=== PATIENT | male | born 1960 | race Caucasian/White ===

== ENCOUNTER 2019-07-07 19:10 | Emergency (ER) | payer OTHER, SELFPAY ==
[2019-07-07 19:11] VITALS: BP 152/96; PULSE 68; RESP 18; TEMP 36.4; O2SAT 97; BMI 29.8
--- NOTE | 2019-07-07 19:15 | RAD_ITS ---
STUDY: X-RAY - RIGHT SHOULDER REASON FOR EXAM: Male, 58 years old. Fall. Pain. TECHNIQUE: 3 view(s) of the shoulder. COMPARISON: None. FINDINGS: There are degenerative changes of the glenohumeral articulation. There are degenerative changes of the acromioclavicular joint. Normal acromion. Normal humeral head and visualized proximal humerus. The soft tissue structures are unremarkable. Normal visualized pulmonary apex. RAD/Shoulder min 2 Views IMPRESSION: Degenerative changes. Electronically Signed: Saige Plummer MD at 19:42 EST Tel , Service support ,
--- NOTE | 2019-07-07 21:19 | RAD_ITS ---
STUDY: X-RAY - RIGHT HUMERUS REASON FOR EXAM: Male, 58 years old. Fall. Pain TECHNIQUE: 3 view(s) of the humerus. COMPARISON: None. FINDINGS: Normal visualized humerus. There is no demonstrated fracture or osseous destructive process. There is no demonstrated soft tissue abnormality. RAD/Humerus min 2 Views IMPRESSION: Normal limits x-ray examination of the humerus. Electronically Signed: Saige Plummer MD at 21:59 EST Tel , Service support ,
[2019-07-07] MEDS: HYDROcodone Bitartrate/Apap 5/325 Tablet PO (21:36)
--- NOTE | 2019-07-07 21:45 | RAD_ITS ---
STUDY: X-RAY - RIGHT ELBOW REASON FOR EXAM: Male, 58 years old. Fall. Pain TECHNIQUE: 3 view(s) of the elbow. COMPARISON: None. FINDINGS: Normal visualized humerus, radius and ulna. Normal radiocapitellar and ulnotrochlear articulations. The soft tissue structures are unremarkable. RAD/Elbow min 3 Views IMPRESSION: Normal x-ray examination of the elbow. Electronically Signed: Saige Plummer MD at 21:59 EST Tel , Service support ,
--- NOTE | 2019-07-07 22:33 | DCINST.ED_ITS ---
ED Disposition - Plan for ED Patient: Instructions: Shoulder Sprain Prescriptions: Hydrocodone Bitart/Apap 5-325 [[place] 5MG-325MG] 1 tablet PO Q6H PRN PRN 3 Days #10 tablet PRN Reason: Pain Referrals: Rupert Nunn III, MD [Primary Care Provider] -
--- NOTE | 2019-07-07 22:40 | ED.DCSUM_ITS ---
- ER Visit Summary Date of Service: 07/07/19 Chief Complaint: Right shoulder injury History of Present Illness: The patient is a 58 M presenting with right shoulder injury. Patient states he slipped on the ice and fell. He landed injuring his right shoulder. He did not hit his head or lose consciousness. He is not on anticoagulants. He complains of right shoulder pain. Denies other injuries. Physical Examination: Vitals are stable. Patient is afebrile. Alert no acute distress. HEENT exam is unremarkable. Neck is nontender Lungs are clear and equal bilaterally. Heart is regular rate and rhythm. Abdomen is soft nontender nondistended. Extremities diffuse right shoulder tenderness with active full range of motion. Neurovascularly intact distally Skin is warm and dry. No focal neurologic deficit. Remainder of exam is unremarkable. Emergency Department Course and Treatment: X-ray right shoulder, humerus, elbow show no acute process. Patient was given a sling and advised range of motion exercises. He is given [place]. Advised to follow-up with his primary care physician. Advised return to ED for worsening complaints. Disposition: Discharge home Impression: Right shoulder sprain This note was generated with [employer] dictation software. It may contain incorrect words, spelling, and punctuation that were not noted in review of the chart prior to signing ED Disposition - Plan for ED Patient: Instructions: Shoulder Sprain Prescriptions: Hydrocodone Bitart/Apap 5-325 [[place] 5MG-325MG] 1 tab PO Q6H PRN PRN 3 Days #10 tab PRN Reason: Pain Prescription Printed Referrals: Rupert Nunn III, MD [Primary Care Provider] -
[2019-07-07 23:00] VITALS: BP 135/70; PULSE 60; RESP 18; O2SAT 94
== END 2019-07-07 23:01 | disposition home or self-care (01) ==
PROVIDERS: Emergency Provider Emergency Medicine; Family Provider Family Medicine; PCP Family Medicine
DX: S43.401A Unspecified sprain of right shoulder joint, initial encounter (principal); W00.0XXA Fall on same level due to ice and snow, initial encounter; Y93.01 Activity, walking, marching and hiking; Y92.89 Other specified places as the place of occurrence of the external cause; Y99.8 Other external cause status
CPT/HCPCS: 73030; 73060; 73080; 99283

== ENCOUNTER 2021-03-15 15:24 | Emergency (ER) | payer OTHER, SELFPAY ==
[2021-03-15 15:25] VITALS: BP 153/89; PULSE 83; RESP 16; TEMP 36.6; O2SAT 96; BMI 29.0
--- NOTE | 2021-03-15 16:14 | CT_ITS ---
STUDY: CT BRAIN WITHOUT CONTRAST REASON FOR EXAM: Male, 60 years old. Headache RADIATION DOSAGE (If Supplied By Facility): CTDIvol = ( 44.99 ) mGy, DLP = ( 846.73 ) mGycm TECHNIQUE: Transaxial CT imaging of the brain was performed without administration of intravenous contrast material. Individualized dose optimization techniques were used for this CT. COMPARISON: No relevant priors. FINDINGS: Brain parenchyma is without focal lesions, mass effect, acute intracranial hemorrhage, extra parenchymal fluid collections, hydrocephalus or herniation. The skull is intact. CT/Brain/Head without Contrast IMPRESSION: 1. Normal CT brain. Electronically Signed: Ale Yañez MD at 17:33 EDT Tel , Service support ,
--- NOTE | 2021-03-15 16:17 | EDS_ITS ---
HPI History of Present Illness Chief Complaint: Dizziness Informant: patient Onset/Context/Timing Onset: Yesterday Context: Sudden Onset Timing: Intermittent and Lasts (30 to 45 minutes) Quality: Blurry, cloudy Location: Both eyes Worsened by: Nothing Relieved by: Possibly eating Narrative Narrative: Patient presents with blurring of her vision that began yesterday. Patient states it has been intermittent. Patient states that last approximately 30 to 45 minutes. Patient states nothing makes it worse and nothing makes it better. However at one point he thought that eating may have helped with a vision. Patient admits to a mild headache. Patient states it is behind both eyes. Patient denies any nausea or vomiting. Patient denies any fevers or chills. PFSH PFS Home Medications NK 03/15/21 [History Last Taken Unknown] Allergy/AdvReac Type Severity Reaction Status Date / Time No Known Allergies Allergy Verified 03/15/21 15:27 Family History (Updated 03/15/21 @ 15:47 by Sandrine Rodriguez) Mother Hypertension Father Hypertension Diabetes Aunt Diabetes Surgical History S/P rotator cuff repair Social History Smoking Status: Never smoker ROS ROS ED Constitutional Constitutional ED: Denies chills or fever(s) Eyes Eyes: Reports blurry vision bilateral; Denies diplopia ENT ENT ED: Denies rhinorrhea or sore throat Cardiovascular Cardiovascular: Denies chest pain or palpitations Respiratory/Chest Respiratory/Chest: Denies cough or dyspnea Gastrointestinal Gastrointestinal: Denies nausea or vomiting Genitourinary Genitourinary ED: Denies dysuria or hematuria Musculoskeletal Musculoskeletal: Denies back pain or neck pain Integumentary Denies abscess or rash Neurologic Neurologic: Reports headache(s); Denies weakness Allergic/Immunologic Allergic/Immunologic ED: Denies mouth swelling or urticaria EXAM Physical Exam Const Vital Signs: 03/15/21 15:25 03/15/21 15:47 Temperature 97.8 F Temperature Source Temporal Pulse Rate 83 Respiratory Rate 16 Respiratory Effort Normal Respiratory Pattern Normal Blood Pressure 153/89 H Blood Pressure Mean 110 Pulse Ox 96 Oxygen Delivery Method Room Air Positive well nourished and well developed General Appearance ED: well developed HEENT Reports moist mucous membranes Eyes PERRL and EOMs intact bilaterally Neck supple and no JVD Resp normal respiratory effort and clear to auscultation bilaterally Cardio regular rate and regular rhythm GI normal to inspection, nondistended, normoactive bowel sounds and non-tender Palpation: soft Neuro oriented x3, CN's II-XII intact bilaterally and no sensory deficits noted Sensorium / Orientation: alert Motor Exam: strength 5/5 throughout Psych mental status grossly normal MDM MDM MDM Narrative Medical decision making narrative: Intraocular pressures were normal. It was 14 on the right and [address] scan of the brain was obtained. There is no acute intracranial abnormality. This was interpreted by the radiologist and reviewed by myself. CBC and comprehensive metabolic profile were obtained and were within normal limits. Patient's visual acuity was 20/15. Patient is feeling better on reevaluation. Patient was advised that this could have been hypoglycemic episode. Patient was instructed to follow-up with his primary care physician in 3 to 5 days. Patient understood and was agreeable with the plan. All questions were answered. Lab Data Attestation: I reviewed the patient's lab results. Labs: Laboratory Results - last 24 hr 03/15/21 03/15/21 16:40 16:40 WBC 8.7 RBC 4.30 L Hgb 13.7 Hct 41.4 MCV 96.3 H MCH 31.9 MCHC 33.1 RDW Std Deviation 47.1 H RDW Coeff of Vidhya 13.2 Plt Count 318 MPV 9.1 Immature Gran % (Auto) 0.500 Neut % (Auto) 54.5 Lymph % (Auto) 35.2 Saunders % (Auto) 7.5 Eos % (Auto) 1.6 Baso % (Auto) 0.7 Absolute Neuts (auto) 4.7 Absolute Lymphs (auto) 3.06 Nucleated RBC % 0 Sodium 138 Potassium 4.0 Chloride 106 Carbon Dioxide 28.0 Anion Gap 4 L BUN 26 H Creatinine 0.97 Estim Creat Clear Calc 71.25 Est GFR (MDRD) Af Amer 101 Est GFR (MDRD) Non-Af 84 BUN/Creatinine Ratio 26.9 H Glucose 91 Calcium 8.8 Total Bilirubin 0.20 AST 15 ALT 30 Alkaline Phosphatase 69 Total Protein 7.3 Albumin 3.7 Globulin 3.6 Albumin/Globulin Ratio 1.0 Radiography Diagnostic Testing: Radiology Impression Brain CT 03/15/21 16:14 IMPRESSION: 1. Normal CT brain. Electronically Signed: Ale Yañez MD at 17:33 EDT Tel , Service support , Discharge Plan Triage Chief Complaint: Dizziness ED Provider: Blaine Lin Dx/Rx/DC Orders Clinical Impression: Visual changes Instructions: ED Blurred Vision Prescriptions: No Action NK RF: 0 Primary Care Provider: Oscar Ray NP Referrals: Oscar Ray NP, [employer] [Primary Care Provider] - 3-5 Days Disposition Disposition: Home, Self Care
[2021-03-15] MEDS: Tetracaine 0.5% Ophthalmic Bottle OPHTHALMIC (16:42)
[2021-03-15 17:16] LABS: Absolute Lymphocyte Count 3.06 X10^3/uL (0.83-4.51); Absolute Neutrophil Count 4.7 X10^3/uL (2.0-7.7); Basophil# 0.06 X10^3/uL; Basophil% 0.7 % (0-1); Eosinophil# 0.14 X10^3/uL; Eosinophils% 1.6 % (0-5); Hematocrit 41.4 % (40-54); Hemoglobin 13.7 g/dL (13.0-16.5); Lymphocyte # 3.06 X10^3/ul (0.83-4.51); Lymphocyte % 35.2 % (19-41); Mean Corp Hgb Conc 33.1 g/dL (32-36); Mean Corpuscular Hgb 31.9 pg (27.0-32.0); Mean Corpuscular Volume 96.3 fL (80-94); Mean Platelet Vol. 9.1 fl (6.2-12.0); Monocyte# 0.65 X10^3/uL; Monocyte% 7.5 % (0-10); NRBC Flagged by Analyzer 0 % (0-5); Neutrophil # 4.74 X10^3/uL (2.7-7.7); Neutrophil % 54.5 % (47-70); Platelet Count 318 K/mm3 (150-450); RBC Distribution Width CV 13.2 % (11.6-14.6); RBC Distribution Width SD 47.1 fl (35.1-43.9); White Blood Count 8.7 K/mm3 (4.4-11.0)
[2021-03-15 17:27] LABS: AST(SGOT) 15 U/L (15-37); Alanine Aminotransfer ALT/SGPT 30 U/L (16-61); Albumin, Serum 3.7 g/dL (3.2-5.0); Alkaline Phosphatase 69 U/L (45-117); Anion Gap 4 (5-15); BUN 26 mg/dL (7-18); BUN/Creat Ratio 26.9 RATIO (10-20); Calcium,Total 8.8 mg/dL (8.5-10.1); Chloride 106 mmol/L (98-107); Creatinine, Serum 0.97 mg/dL (0.70-1.30); EST Glomerular Filtration Rate 84 mL/min (>60); Est Glom Filt Rate - Afr Amer 101 mL/min (>60); Estimated Creatinine Clearance 71.25 ml/min; Globulin 3.6 g/dL (2.2-4.2); Glucose 91 mg/dL (74-106); Protein, Total 7.3 g/dL (6.4-8.2); Sodium Level 138 mmol/L (136-145)
[2021-03-15 19:12] VITALS: BP 147/97
== END 2021-03-15 19:14 | disposition home or self-care (01) ==
PROVIDERS: Emergency Provider Emergency Medicine; PCP Nurse Practitioner Family
DX: H53.8 Other visual disturbances (principal); R42 Dizziness and giddiness; R51.9 Headache, unspecified
CPT/HCPCS: 70450; 80053; 85025; 99284; A4216

== ENCOUNTER → 2023-10-28 | Outpatient (CLI) | payer OTHER, SELFPAY | END | disposition home or self-care (01) | LOC: SL 19:45 | PROVIDERS: PCP Nurse Practitioner Family; Referring Provider Family Medicine; Visit Provider Family Medicine | DX: G47.33 Obstructive sleep apnea (adult) (pediatric) (principal) | CPT/HCPCS: 95810 ==

== ENCOUNTER 2025-04-09 18:30 | Emergency (ER) | payer MEDICARE, SELFPAY ==
[2025-04-09 18:31] VITALS: BP 155/96; PULSE 77; RESP 16; TEMP 37.1; O2SAT 99
--- NOTE | 2025-04-09 18:44 | EDS_ITS ---
HPI History of Present Illness Chief Complaint: Lower Extremity Injury [facility] Medical History Hypertension Home Medications ?Medication ?Instructions ?Recorded ?Last Taken ?Type NK 03/15/21 Unknown History Allergy/AdvReac Type Severity Reaction Status Date / Time No Known Allergies Allergy Verified 01/11/22 08:39 Family History Mother Hypertension Father Hypertension Diabetes Aunt Diabetes Surgical History S/P rotator cuff repair Social History Smoking Status: Never smoker EXAM Physical Exam Const Vital Signs: 04/09/25 18:31 04/09/25 20:16 Temperature 98.8 F 98.8 F Temperature Source Oral Pulse Rate 77 71 Respiratory Rate 16 15 Blood Pressure 155/96 H 155/96 H Blood Pressure Mean 115 115 Pulse Ox 99 99 Oxygen Delivery Method Room Air [facility] MDM Narrative Medical decision making narrative: HISTORY OF PRESENT ILLNESS: Chief complaint: Right leg pain 64-year-old male presents with concern for right leg pain. 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 He notes a fall with right mid thigh and calf pain. He further states there is no head trauma or loss of consciousness. No hip or back pain noted. No upper extremity pain noted felt a pop and severe pain in his posterior right leg. REVIEW OF SYSTEMS: Pertinent positives: Leg pain Pertinent negatives: Numbness, tingling, loss of sensation PHYSICAL EXAM: Nursing triage notes reviewed, Vital signs reviewed Constitutional: please see mdm HENT: MMM Eyes: Pupils equal round and reactive to light, Extraocular muscles intact Neck: No stridor, no JVD, full neck ROM Lungs: Clear to auscultation, No wheezing or rales. No increased work of breathing, no conversational dyspnea, no accessory muscle use, no nasal flaring. No respiratory distress noted Heart: Regular rate and rhythm, No murmurs, No rubs and No gallops, 2+ distal pulses (radial, femoral, posterior tibial) in all extremities Abdomen: Soft, there is no tenderness, rigidity, rebound or guarding, no obvious peritoneal signs, no palpable pulsatile abdominal masses, no auscultated abdominal bruit : No CVAT Extremities: No edema, TTP over hamstring muscle belly. Intact ligamentous structures noted with anterior posterior drawer and valgus and varus stress testing. Intact quadrants tendon complex. Compartments are soft. Right lower extremity is neurovascularly intact. Neuro: intact sensation L1-S1 dermatomal distributions. Intact 5/5 strength in hip flexion (T12-L3). Knee extension (L2-L4). Ankle dorsiflexion (L4-L5). Ankle plantar flexion (S1). Great toe extension (L5). 2+ patellar and Achilles DTRs. Skin: No rash or lesions noted MEDICAL DECISION MAKING: Chief Complaint: please see HPI External records reviewed: Reviewed prior imaging studies. No advanced imaging of the involved extremity noted MDM Narrative: Patient was initially hemodynamically stable, afebrile and nontoxic-appearing. Exam with TTP over right hamstring muscle. I considered the following differential diagnosis: Hamstring muscle strain, femur fracture I obtained an x-ray to further determine if the patient was suffering from a life-threatening etiology. Offered pain medicine however patient refused ALL IMAGES (IF OBTAINED) HAVE BEEN PERSONALLY REVIEWED AND INTERPRETED BY MYSELF. X-ray of the right femur was read reviewed personally myself showed no evidence of obvious bony abnormality The synthesis of the patient's history, physical exam, imaging studies suggest hamstring strain. The patient and/or family, caregivers express understanding. The patient and/or family, caregivers agrees with the plan. Shared decision making: I will have a discussion with the patient and or visitors regarding risk/benefits of further testing or admission. They will be made aware of of the risk/benefits inherent in this decision they will be given the opportunity to voice understanding. Total critical care time today provided was at least 0 minutes. This excludes separately billable procedures. Critical care time (if documented) is secondary to the patient having high probability of clinically significant/life threatening deterioration in the patient's condition which required my urgent intervention. Impression: 1. Acute leg pain 2. Hamstring muscle strain Dispo: Discharge home This note was generated with [employer] dictation software. It may contain incorrect words, spelling, and punctuation that were not noted in review of the chart prior to signing. Radiography Diagnostic Testing: Clinical Impression(s) from Imaging Studies Femur X-Ray 04/09/25 19:10 IMPRESSION: No acute osseous abnormality. Reading Location: [facility] [place] Discharge Plan Triage Chief Complaint: Lower Extremity Injury ED Provider: [place] Dx/Rx/DC Orders Instructions: ED Muscle Strain, Extremity Prescriptions: No Action NK Primary Care Provider: Oscar Ray NP Referrals: Oscar Ray NP, [employer] [Primary Care Provider] - Activity Restrictions/Additional Instructions: Thank you for trusting us with your care today! The x-ray of your leg/femur did not show signs of a bony injury, fracture, broken bone or dislocation. You are likely suffering a hamstring muscle strain. This improves with time, rest, gentle stretching and the below medications. If your symptoms continue for the next 2 to 4 weeks and worsen you will need outpatient MRI for further evaluation. Please take Tylenol (2 pills, 650 mg), ibuprofen (2 pills, 400 mg) every 6 hours as needed for pain and fever control. Please return to the emergency department if your symptoms change or worsen. Please follow with your primary care physician for further outpatient evaluation and management. Print Language: Turkish Disposition Disposition: Home, Self Care Discharge Date/Time: 04/09/25 20:17
--- OUTSIDE RECORDS SUMMARY | 2025-04-09 18:53 | XMS RPT_ITS | CCD ---
Author Organization [facility] Care Team Providers Care Buffing Machine Tender Name Role Phone Golden Michel MD Primary Care Provider Ralph Norman Referring Unavailable Ralph Norman Attending Unavailable Cory STORAGE ADMINISTRATOR, Oscar Primary Care Unavailable Golden Michel MD Primary Care Provider [place] STRATEGY ANALYST.Pinky JIMENES Unavailable John Paul STRATEGY ANALYST.Idris JIMENES Unavailable [place] STRATEGY ANALYST.Pinky JIMENES Unavailable Unavail able HERIBERTO PEREZ Attending Unavailable GOLDEN MICHEL Primary Care Unavailable HERIBERTO PEREZ Attending Unavailable GOLDEN MICHEL Primary Care Unavailable [place] STRATEGY ANALYST.Pinky JIMENES Unavailable [place] STRATEGY ANALYST.Pinky JIMENES Unavailable HERIBERTO PEREZ Referring Unavailable GOLDEN MICHEL Primary Care Unavailable SONIDO MAURICIO Attending Unavailable MARCUS HARO Referring Unavailable GOLDEN MICHEL Primary Care Unavailable SHIRLEY TAVERAS Referring Unavailable GOLDEN MICHEL Primary Care Unavailable GOLDEN MICHEL Primary Care Unavailable SHIRLEY TAVERAS Attending Unavailable PINKY WILSON Referring UnavailGOLDEN Diego Primary Care Unavailable MARCUS HARO Referring Unavailable GOLDEN MICHEL Primary Care Unavailable WALI COLEMAN Referring Unavailable GOLDEN MICHEL Primary Care Unavailable GOLDEN MICHEL Primary Care Unavailable PINKY WILSON Referring UnavailWALI Florentino Attending Unavailable GOLDEN MICHEL Primary Care Unavailable PINKY WILSON Referring Unavailabl e GOLDEN MICHEL Primary Care Unavailable PINKY WILSON Attending UnavailGOLDEN Diego Primary Care Unavailable PINKY WILSON Referring UnavailGOLDEN Diego Primary Care Unavailable IDRIS DAILEY Referring Unavailable XIMENA CHRISTIAN Attending Unavailable GOLDEN MICHEL Primary Care Unavailable Medications Current Medications Medication Drug Class(es) Dates Sig (Normalized) Sig (Original) cyclobenzaprine hydrochloride 10 mg oral tablet (1 source) Muscle Relaxant Start: 03-26-2025 End: 04-02-2025 take 1 tablet by mouth every eight hours as needed cyclobenzaprine (FLEXERIL) 10 mg tablet Take 1 tablet by mouth three times a day as needed for up to 7 days. 14 tablet 03/26/2025 04/02/2025 Active ketoconazole 20 mg/ml topical cream (3 sources) Azole Antifungal Start: 04-25-2024 End: 05-09-2024 ketoconazole (NIZORAL) 2 % cream Indications: Fungal skin infection Apply to affected area two times a day for 14 days. 60 g 2 04/25/2024 05/09/2024 Active Hamlin (Nk) (1 source) Start: 03-15-2021 Hamlin (Nk) Active March 15, 2021 12:00am nystatin 100 unt/mg topical powder (2 sources) Polyene Antifungal Start: 04-28-2024 End: 05-12-2024 nystatin (MYCOSTATIN) powder Indications: Fungal skin infection Apply 1 application to affected area three times a day for 14 days. 60 g 1 04/28/2024 05/12/2024 Active nystatin 1 billion unit powd (3 sources) Start: 04-25-2024 End: 04-25-2025 nystatin 1 billion unit powd Indications: Fungal skin infection 1 APPLICATION TWO TIMES A DAY. 1 Each 2 04/25/2024 04/25/2025 Active Start: 04-25-2024 End: 04-25-2024 nystatin 1 billion unit powd Indications: Fungal skin infection 1 Application two times a day. 1 Each 2 04/25/2024 04/25/2024 Discontinued Start: 04-25-2024 End: 04-25-2025 nystatin 1 billion unit powd Indications: Fungal skin infection 1 Application two times a day. 1 Each 2 04/25/2024 04/25/2025 Active sildenafil 50 mg oral tablet (20 sources) Phosphodiesterase 5 Inhibitor Start: 03-20-2025 sildenafil (VIAGRA) 50 mg tablet Indications: ED (erectile dysfunction) of organic origin Take one tablet by mouth 60 minutes prior to sexual activity. Not to exceed one tablet per 24 hours. For erectile dysfunction 12 tablet 3 03/20/2025 Active Start: 01-09-2025 End: 03-18-2025 sildenafil (VIAGRA) 50 mg ta blet Indications: ED (erectile dysfunction) of organic origin Take one tablet by mouth 60 minutes prior to sexual activity. Not to exceed one tablet per 24 hours. For erectile dysfunction 12 tablet 3 01/09/2025 03/18/2025 Discontinued Start: 03-22-2024 End: 01-07-2025 sildenafil (VIAGRA) 50 mg ta blet Indications: ED (erectile dysfunction) of organic origin Take one tablet by mouth 60 minutes prior to sexual activity. Not to exceed one tablet per 24 hours. For erectile dysfunction 12 tablet 3 07/21/2024 01/07/2025 Discontinued Start: 02-19-2021 End: 03-19-2024 sildenafil (VIAGRA) 50 mg ta blet Indications: ED (erectile dysfunction) of organic origin Take one tablet by mouth 60 minutes prior to sexual activity. Not to exceed one tablet per 24 hours. For erectile dysfunction 12 tablet 05/20/2023 03/19/2024 Discontinued Comment on above: Take one tablet by m outh 60 minutes prior to sexual activity. Not to exceed one tablet per 24 hours. For erectile dysfunction sodium phosphate, dibasic 59.3 mg/ml / sodium phosphate, monobasic 161 mg/ml enema (1 source) Start: End: 4 take 133 mL rectal route once sodium phosphate-sodium bisphosphate (FLEET ENEMA) enema Indications: Elevated prostate specific antigen (PSA) , BPH with obstruction/lower urinary tract symptoms 133 mL by RECTAL route one time only for 1 dose. 133 mL 05/24/2024 05/24/2024 Active triazolam 0.25 mg oral tablet (3 sources) Benzodiazepine Start: End: 4 take 1 tablet by mouth at bedtime as needed triazolam (HALCION) 0.25 mg tablet Indications: Elevated prostate specific antigen (PSA) , BPH with obstruction/lower urinary tract symptoms Take 1 tablet by mouth at bedtime as needed for up to 1 dose. Patient should start on May 25, 2024. 1 tablet 05/25/2024 05/26/2024 Active Completed/Discontinued Medications Medication Drug Class(es) Dates Sig (Normalized) Sig (Original) acetaminophen 325 mg / HYDROcodone bitartrate 5 mg oral tablet (1 source) Opioid Agonist Start: 07-07-2019 End: 07-13-2019 take 1 tablet by mouth every six hours as needed Hydrocodone-Acetami nophen Discontinued 1 TABLET PO EVERY 6 HOURS NEEDED 04 28July 07, 2019 July 13, 2019 1:12am Problems Active Problems Problem Classification Problem Date Documented Date Episodic/Chronic Acquired foot deformities (4 sources) Hammer toe; Translations: [Other hammer toe(s) (acquired), right foot] Onset: 06-06-2024 06-06-2024 Chronic Blindness and vision defects (1 source) Eye / vision finding; Translations: [Unspecified visual disturbance] 03-15-2021 Episodic Disorders of lipid metabolism (20 sources) Mixed hyperlipidemia; Translations: [Mixed hyperlipidemia] Onset: 04-23-2010 Chronic Hyperplasia of prostate (4 sources) Benign prostatic hypertrophy with outflow obstruction; Translations: [Benign prostatic hyperplasia with lower urinary tract symptoms] Onset: 05-25-2024 05-20-2024 Chronic Other circulatory disease (2 sources) Elevated blood-pressure reading without diagnosis of hypertension; Translations: [Elevated blood-pressure reading, without diagnosis of hypertension] Episodic Other connective tissue disease (2 sources) Pain in right foot; Translations: [Pain in right foot] Episodic Other connective tissue disease (1 source) Shoulder girdle weakness; Translations: [Other symptoms and signs involving the musculoskeletal system] 04-25-2024 Episodic Other male genital disorders (6 sources) Secondary erectile dysfunction; Translations: [Male erectile dysfunction, unspecified] 05-20-2023 Chronic Other male genital disorders (1 source) Male erectile dysfunction, unspecified; Translations: [ED (erectile dysfunction) of organic origin] Onset: 04-25-2024 Chronic Other non-traumatic joint disorders (3 sources) Hip pain; Translations: [Pain in right hip] 06-03-2024 Episodic Other nutritional; endocrine; and metabolic disorders (20 sources) Metabolic syndrome X; Translations: [Metabolic syndrome] Onset: 10-01-2006 10-01-2006 Chronic Other skin disorders (2 sources) Foot callus; Translations: [Corns and callosities] 06-06-2024 Episodic Residual codes; unclassified (1 source) Obstructive sleep apnea (adult) (pediatric); Translations: [Obstructive sleep apnea (adult) (pediatric)] Onset: 02-29-2024 Chronic Spondylosis; intervertebral disc disorders; other back problems (2 sources) Spasm of back muscles; Translations: [Muscle spasm of back] Onset: 03-26-2025 03-26-2025 Episodic Sprains and strains (2 sources) Strain of neck muscle; Translations: [Strain of muscle, fascia and tendon at neck level, initial encounter] Onset: 03-26-2025 03-26-2025 Episodic Past or Other Problems Problem Classification Problem Date Documented Date Episodic/Chronic Fracture of upper limb (20 sources) Closed fracture of lower end of forearm; Translations: [Unspecified fracture of unspecified forearm, initial encounter for closed fracture] Onset: 10-10-2005 Resolved: 11-28-2005 10-16-2005 Episodic Immunizations and screening for infectious disease (5 sources) Needs influenza immunization; Translations: [Encounter for immunization] Onset: 04-25-2024 Episodic Mycoses (20 sources) Tinea pedis; Translations: [Tinea pedis] Onset: 06-28-2012 Resolved: 05-19-2016 05-19-2016 Episodic Other circulatory disease (1 source) Elevated blood-pressure reading, without diagnosis of hypertension; Translations: [Elevated blood pressure reading without diagnosis of hypertension] Onset: 04-25-2024 Episodic Other connective tissue disease (1 source) Other symptoms and signs involving the musculoskeletal system; Translations: [Weakness of right shoulder] Onset: 04-25-2024 Episodic Other diseases of kidney and ureters (1 source) Other obstructive and reflux uropathy; Translations: [BPH with obstruction/lower urinary tract symptoms] Onset: 05-25-2024 Episodic Other non-traumatic joint disorders (1 source) Pain in right hip; Translations: [Pain of right hip] Onset: 06-10-2024 Episodic Other screening for suspected conditions (not mental disorders or infectious disease) (18 sources) Patient encounter status; Translations: [Encounter for screening for malignant neoplasm of colon] Onset: 05-25-2024 Episodic Other skin disorders (1 source) Corns and callosities; Translations: [Callus of foot] Onset: 06-06-2024 Episodic Screening and history of mental health and substance abuse codes (2 sources) Encounter for screening for depression; Translations: [Encounter for screening examination for other mental health and behavioral disorders] Onset: 04-25-2024 Episodic Skull and face fractures (20 sources) Closed fracture of facial bone; Translations: [Fracture of other specified skull and facial bones, unspecified side, initial encounter for closed fracture] Onset: 10-10-2005 Resolved: 02-15-2014 02-15-2014 Episodic Results Test Name Value Interpretation Reference Range Facility Comprehensive metabolic 2000 panelon 04-05-2025 Albumin [Mass/Vol] 4.1 g/dL Normal 3.9-4.9 [facility] Comment on above: Order Comment: Speci men Type: BLOOD SPECIMENOrdering Facility: [facility] Address: [address] [place] [address] Performed By: #### 2 4331-1, 32464-0, 86850-4 ####[facility] [id number] [place] [address] [place] ALP [Catalytic activity/Vol] 65 U/L Normal 38-113 [facility] Comment on above: Order Comment: Speci men Type: BLOOD SPECIMENOrdering Facility: [facility] Address: [address] [place] [address] Performed By: #### 2 4331-1, 86115-0, 85465-1 ####[facility] [id number] [place] [address] [place] ALT [Catalytic activity/Vol] 15 U/L Normal 10-54 [facility] Comment on above: Order Comment: Speci men Type: BLOOD SPECIMENOrdering Facility: [facility] Address: [address] [place] [address] Performed By: #### 2 4331-1, 46938-0, 26555-3 ####[facility] LABCLIA [id number] [address] [address] [place] Anion gap [Moles/Vol] 13 mmol/L Normal 8-15 [facility] Comment on above: Order Comment: Speci men Type: BLOOD SPECIMENOrdering Facility: [facility] Address: [address] [place] [address] Performed By: #### 2 4331-1, 74410-3, ####[facility] LABCLIA [id number] [address] [address] [place] AST [Catalytic activity/Vol] 17 U/L Normal 14-40 [facility] Comment on above: Order Comment: Speci men Type: BLOOD SPECIMENOrdering Facility: [facility] Address: [address] [place] [address] Performed By: #### 2 4331-1, 02795-9, ####[facility] LABCLIA [id number] [address] [address] [place] Bilirubin [Mass/Vol] 0.3 mg/dL Normal 0.2-1.3 [facility] Comment on above: Order Comment: Speci men Type: BLOOD SPECIMENOrdering Facility: [facility] Address: [address] [place] [address] Performed By: #### 2 4331-1, 95729-1, ####[facility] LABCLIA [id number] [address] [address] [place] Calcium [Mass/Vol] 9.5 mg/dL Normal 8.5-10.2 [facility] Comment on above: Order Comment: Speci men Type: BLOOD SPECIMENOrdering Facility: [facility] Address: [address] [place], [place] [address] Performed By: #### 2 4331-1, 73309-3, 87005-6 ####[facility] LABCLIA [id number] [place] [id number] [place] Chloride [Moles/Vol] 102 mmol/L Normal 98-107 [facility] Comment on above: Order Comment: Speci men Type: BLOOD SPECIMENOrdering Facility: [facility] Address: [address] [place] [address] Performed By: #### 2 4331-1, 97030-4, 89820-6 ####[facility] LABIA [id number] [place] [id number] [place] CO2 [Moles/Vol] 21 mmol/L Low 22-30 [facility] Comment on above: Order Comment: Speci men Type: BLOOD SPECIMENOrdering Facility: [facility] Address: [address] [place] [address] Performed By: #### 2 4331-1, 39025-3, 42030-7 ####[facility] LABIA [id number] [place] [id number] [place] Creatinine [Mass/Vol] 1.02 mg/dL Normal 0.73-1.22 [facility] Comment on above: Order Comment: Speci men Type: BLOOD SPECIMENOrdering Facility: [facility] Address: [address] [place] [address] Performed By: #### 2 4331-1, 89954-2, 46036-9 ####[facility] [id number] [place] [id number] [place] eGFRcr SerPlBld CKD-EPI 2020 81 mL/min/1.73m??? Normal >=60 [facility] Comment on above: Order Comment: Speci men Type: BLOOD SPECIMENOrdering Facility: [facility] Address: [address] [place] [address] Result Comment: Pamela mated Glomerular Filtration Rate (eGFR) is calculated using the 2020 CKD-EPI creatinine equation. This equation utilizes serum creatinine, sex, and age as parameters. The creatinine assay has traceable calibration to isotope dilution-mass spectrometry. Refer to KDIGO guidelines for clinical interpretation. In patients with unstable renal function, e.g. those with acute kidney injury, the eGFR may not accurately reflect actual GFR. Performed By: #### 2 4331-1, 78396-6, ####[facility] LABCLIA [id number] [employer] [address] [id number], [place] [address] [place] Glucose [Mass/Vol] 92 mg/dL Normal 74-99 [facility] Comment on above: Order Comment: Shelly maria Type: BLOOD SPECIMENOrdering Facility: [facility] Address: [address] [place] [address] Result Comment: The [place] Diabetes Association (ADA) provides guidance for cutoff values for fasting glucose and random glucose. The ADA defines fasting as no caloric intake for at least 8 hours. Fasting plasma glucose results between 100 to 125 mg/dL indicate increased risk for diabetes (prediabetes). Fasting plasma glucose results greater than or equal to 126 mg/dL meet the criteria for diagnosis of diabetes. In the absence of unequivocal hyperglycemia, results should be confirmed by repeat testing. In a patient with classic symptoms of hyperglycemia or hyperglycemic crisis, random plasma glucose results greater than or equal to 200 mg/dL meet the criteria for diagnosis of diabetes. Reference: Standards of Medical Care in Diabetes 2016, [place] Diabetes Association. Diabetes Care. 2016.39(Suppl 1). Performed By: #### 2 4331-1, 83730-2, ####[facility] LABCLIA [id number] [employer] [address] [id number] [address] [place] Potassium [Moles/Vol] 4.5 mmol/L Normal 3.7-5.1 [facility] Comment on above: Order Comment: Shelly maria Type: BLOOD SPECIMENOrdering Facility: [facility] Address: [address] [place] [address] Performed By: #### 2 4331-1, 57548-0, ####[facility] LABCLIA [id number] [address] [id number], [place] [address] [place] Protein [Mass/Vol] 7.1 g/dL Normal 6.3-8.0 [facility] Comment on above: Order Comment: Speci men Type: BLOOD SPECIMENOrdering Facility: [facility] Address: [address] [place], [place] [address] Performed By: #### 2 4331-1, 33602-5, 16647-5 ####[facility] LABCLIA [id number] [address] [address] [place] Sodium [Moles/Vol] 136 mmol/L Normal 136-144 [facility] Comment on above: Order Comment: Speci men Type: BLOOD SPECIMENOrdering Facility: [facility] Address: [address] [place], [place] [address] Performed By: #### 2 4331-1, 63097-4, ####[facility] LABCLIA [id number] [address] [address] [place] Urea nitrogen [Mass/Vol] 22 mg/dL Normal 9-24 [facility] Comment on above: Order Comment: Speci men Type: BLOOD SPECIMENOrdering Facility: [facility] Address: [address] [place] [address] Performed By: #### 2 4331-1, 63440-3, ####[facility] LABIA [id number] [address] [address] [place] Free PSA [Mass/Vol]on 2024 Free PSA/Total PSA [Mass fraction] 15 % Normal [facility] Comment on above: Order Comment: Speci men Type: BLOOD SPECIMENOrdering Facility: [facility] Address: [address] [place] [address] Result Comment: Tota l and free PSA test methodology used is the Electrochemiluminescence Immunoassay by [employer]. Total or free PSA values by differing methodologies cannot be interchanged. The below table lists the probability of finding prostate cancer upon needle biopsy, for men 50 years or older and total PSA concentrations from 4.0-10.0 ng/mL. Results should be interpreted within the broader clinical context. Free PSA(%) 50-59 years 60-69 years >69 years <11 49.2% 57.5% 64.5% 11-18 26.9% 33.9% 40.8% 19-25 18.3% 23.9% 29.7% >25 9.1% 12.2% 15.8% Performed By: #### 2 4331-1, 49722-0, 93130-9 ####[facility] LABCLIA [id number] [place] [id number] [place] Prostate specific Ag [Mass/Vol] 5.10 ng/mL High <2.60 [facility] Comment on above: Order Comment: Speci men Type: BLOOD SPECIMENOrdering Facility: [facility] Address: [address] [place] [address] [place] [address] Result Comment: Pedro amor PSA test methodology used is the Electrochemiluminescence Immunoassay by [employer]. Total PSA values by differing methodologies cannot be interchanged. For an individual patient, the significance of a PSA level should be interpreted in a broad clinical context, including age, race, family history, digital rectal exam, prostate size, results of prior testing (prostate biopsy, free PSA, PCA3), and use of 5-alpha reductase inhibitors. Considering the high incidence of asymptomatic cancer in the general population that may not pose an ultimate risk to a patient, the decision to recommend urological evaluation or prostate biopsy should be individualized after consideration of all these factors. REFERENCE: Sri Tsai M.D., M.P.H., Marko Hemphill M.D., Ph.D., Ralph Tobar M.D., Morena Brothers, M.P.H., Salome Franks, Sc.D. Effect of Verification Bias on Screening for Prostate Cancer by Measurement of Prostatic Specific Antigen. N Engl J Med 2003,349:335-42. Performed By: #### 2 4331-1, 71578-9, ####[facility] LABCLIA [id number] [address] [address] [place] Lipid 1996 panelon 5 Cholesterol [Mass/Vol] 192 mg/dL Normal <200 [facility] Comment on above: Order Comment: Speci men Type: BLOOD SPECIMENOrdering Facility: [facility] Address: [address] [place] [address] Result Comment: <200 mg/dL, Desirable 200-239 mg/dL, Borderline high >239 mg/dL, High Performed By: #### 2 4331-1, 67400-9, ####[facility] LABCLIA [id number] [facility] [id number], [place] [address] [place] Cholesterol in HDL [Mass/Vol] 40 mg/dL Normal >39 [facility] Comment on above: Order Comment: Speci men Type: BLOOD SPECIMENOrdering Facility: [facility] Address: [address] [place] [address] Result Comment: 40-5 9 mg/dL, Acceptable >59 mg/dL, High: Negative risk factor for coronary heart disease <40 mg/dL, Low: Positive risk factor for coronary heart disease Performed By: #### 2 4331-1, 16310-9, ####[facility] LABCLIA [id number] [facility] [address] [place] [address] [place] Cholesterol in LDL [Mass/Vol] 138 mg/dL High <100 [facility] Comment on above: Order Comment: Speci crow Type: BLOOD SPECIMENOrdering Facility: [facility] Address: [address] [place] [address] Result Comment: <100 mg/dL, Optimal 100-129 mg/dL, Near optimal/above optimal 130-159 mg/dL, Borderline high 160-189 mg/dL, High >189 mg/dL, Very high Secondary prevention optimal LDL Cholesterol levels are recommended to be <70 mg/dL LDL cholesterol is calculated using the Mooney-NIH equation. Performed By: #### 2 4331-1, 69131-3, 96531-6 ####[facility] LABCLIA [id number] [facility] [id number] [address] [place] Cholesterol in LDL/Cholesterol in HDL [Mass ratio] 3.45 {ratio} High <2.54 [facility] Comment on above: Order Comment: Shelly maria Type: BLOOD SPECIMENOrdering Facility: [facility] Address: [address] [place] [address] Result Comment: Se rosario: 1. National Cholesterol Education Program ATP III Guideline At-A-Glance Quick Desk Reference: National Heart, Lung, and Blood [place]. National Institutes of Health. 2001: NIH Publication No. 01-3305. 2. An International Atherosclerosis Society position paper: global recommendations for the management of dyslipidemia: executive summary, Atherosclerosis. 2014: 232(2):410-413. Performed By: #### 2 4331-1, 13447-5, 19077-5 ####[facility] LABCLIA [id number] [place] [address] [place] Cholesterol in VLDL [Mass/Vol] 14 mg/dL Normal <30 [facility] Comment on above: Order Comment: Shelly maria Type: BLOOD SPECIMENOrdering Facility: [facility] Address: [address] [place] [address] Performed By: #### 2 4331-1, 63804-3, 25702-3 ####[facility] LABIA [id number] [place] [address] [place] Cholesterol non HDL [Mass/Vol] 152 mg/dL High <130 [facility] Comment on above: Order Comment: Shelly maria Type: BLOOD SPECIMENOrdering Facility: [facility] Address: [address] [place] [address] Result Comment: <130 mg/dL, Optimal 130-159 mg/dL, Near optimal/above optimal 160-189 mg/dL, Borderline high 190-219 mg/dL, High >219 mg/dL, Very high Secondary prevention optimal non HDL Cholesterol levels are recommended to be <100 mg/dL Performed By: #### 2 4331-1, 85790-6, 25098-2 ####[facility] LABCLIA [id number] [address] [address] [place] Cholesterol.total/ Cholesterol in HDL [Mass ratio] 4.80 {ratio} Normal <5.10 [facility] Comment on above: Order Comment: Speci men Type: BLOOD SPECIMENOrdering Facility: [facility] Address: [address] [place] [address] Performed By: #### 2 4331-1, 99238-0, 07603-3 ####[facility] LABCLIA [id number] [place] [id number] [facility] FASTING TIME 12 hrs Normal [facility] Comment on above: Order Comment: Speci men Type: BLOOD SPECIMENOrdering Facility: [facility] Address: [address] [place] [address] Performed By: #### 2 4331-1, 92303-7, 40043-6 ####[facility] LABCLIA [id number] [place] [id number] [facility] Triglyceride [Mass/Vol] 77 mg/dL Normal <150 [facility] Comment on above: Order Comment: Speci men Type: BLOOD SPECIMENOrdering Facility: [facility] Address: [address] [place] [address] Result Comment: <150 mg/dL, Normal 150-199 mg/dL, Borderline high 200-499 mg/dL, High >499 mg/dL, Very high Performed By: #### 2 4331-1, 69177-8, 34015-6 ####[facility] LABCLIA [id number] [place] [id number] [facility] [place] CNOVon 03-26-2025 CNOV Office Visit (WOUCA) SONYA SOFIA ([id number]) 1960 Date Time Provider Department 03/26/25 8:15 AM XIMENA CHRISTIAN During your visit today, we recorded the following information about you: Temperature Pulse Respiration Blood pressure 97 degrees 70/minute 20/minute 163/94 Weight 86 kg Ximena Christian APRN.CHIEF DEPUTY COURT CLERK 03/26/2025 9:40 AM Signed [facility] Devyn Sonya Sofia is a 64 year old male. Patient presents with: Neck Pain: Neck pain x4 days HPI The patient is a 64-year-old male presenting with acute onset neck pain. Neck Pain: - Onset of symptoms began on . - Describes pain as really sore on Thursday evening, improved on Thursday morning, but worsened again last night and this morning. - Pain localized to the neck, with numbness on both sides; worsens with rapid head movements. - No known trauma or injury; possible aggravation from lifting heavy objects. - Denies numbness or tingling in the arms. - No rash observed; has received a shingles vaccine. - Pain not localized to the spine; no pain when leaning forward or on the sides. - Reports headache on Thursday, now resolving. - Aggravated by looking down, arching back, and raising the right arm. - Has been using Bengay and Meloxicam with some relief. 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 Review of Systems Constitutional: (-) fever Head: (+) headache Neck: (+) neck pain, (+) neck paresthesia Skin: (-) rash Neurological: (-) upper extremity paresthesia Musculoskeletal: (-) spinal pain PAST MEDICAL HISTORY Diagnosis Date Elevated prostate specific antigen (PSA) 04/29/2024 Hyperlipidemia LDL goal < 130 04/23/2010 Tinea pedis 06/28/2012 PAST SURGICAL HISTORY Procedure Laterality Date COLONOSCOPY FLX DX W/COLLJ SPEC WHEN PFRMD 10/03/11 repeat 10 years PAST SURGICAL HISTORY OF bilateral foot surgery PAST SURGICAL HISTORY OF Right 09/08/2019 Shoulder tendon repair ALLERGIES Patient has no known allergies. MEDICATIONS sildenafil (VIAGRA) 50 mg tablet Take one tablet by mouth 60 minutes prior to sexual activity. Not to exceed one tablet per 24 hours. For erectile dysfunction cyclobenzaprine (FLEXERIL) 10 mg tablet Take 1 tablet by mouth three times a day as needed for up to 7 days. FAMILY HISTORY Problem Relation Age of Onset Heart Mother CABG, VALVE REPLACEMENT Ischemic Heart Disease Mother Hypertension Father CABG Ischemic Heart Disease Father Ischemic Heart Disease Maternal Grandfather Heart Attack Maternal Grandfather Heart Attack Paternal Grandmother SOCIAL HISTORY[1] PAST MEDICAL HISTORY Diagnosis Date Elevated prostate specific antigen (PSA) 04/29/2024 Hyperlipidemia LDL goal < 130 04/23/2010 Tinea pedis 06/28/2012 PAST SURGICAL HISTORY Procedure Laterality Date COLONOSCOPY FLX DX W/COLLJ SPEC WHEN PFRMD 10/03/11 repeat 10 years PAST SURGICAL HISTORY OF bilateral foot surgery PAST SURGICAL HISTORY OF Right 09/08/2019 Shoulder tendon repair ALLERGIES Patient has no known allergies. MEDICATIONS sildenafil (VIAGRA) 50 mg tablet Take one tablet by mouth 60 minutes prior to sexual activity. Not to exceed one tablet per 24 hours. For erectile dysfunction cyclobenzaprine (FLEXERIL) 10 mg tablet Take 1 tablet by mouth three times a day as needed for up to 7 days. FAMILY HISTORY Problem Relation Age of Onset Heart Mother CABG, VALVE REPLACEMENT Ischemic Heart Disease Mother Hypertension Father CABG Ischemic Heart Disease Father Ischemic Heart Disease Maternal Grandfather Heart Attack Maternal Grandfather Heart Attack Paternal Grandmother SOCIAL HISTORY[2] Objective BP 163/94 Pulse 70 Temp 36.1 ?C (97 ?F) Resp 20 Wt 86 kg (189 lb 9.5 oz) SpO2 98% BMI 30.60 kg/m? Physical Exam Constitutional: General: He is not in acute distress. Appearance: Normal appearance. He is normal weight. He is not ill-appearing or toxic-appearing. Cardiovascular: Rate and Rhythm: Normal rate and regular rhythm. Pulmonary: Effort: Pulmonary effort is normal. Breath sounds: Normal breath sounds. Musculoskeletal: Right shoulder: Normal. Left shoulder: Normal. Cervical back: Deformity, spasms and tenderness present. No swelling, edema, erythema, signs of trauma, lacerations, rigidity, torticollis, bony tenderness or crepitus. Pain with movement present. Normal range of motion. Thoracic back: Normal. Lumbar back: Normal. Back: Comments: Cervical paraspinal muscle tightness and pain with flexion and extension; pain with right arm elevation; no pain with left arm elevation. Neurological: Mental Status: He is alert. { 1. Strain of neck muscle, initial encounter (S16.1XXA) 2. Muscle spasm of back (M62.830) - Acute onset neck pain and muscle spasm (more content not included)... [facility] ([id number]) 1960 M Date Time Provider Department 01/10/25 [facility] During your visit today, we recorded the following information about you: Paco Hernández 01/10/2025 9:39 AM Signed Patient is schedule for his yearly wellness 04/24/25 with Idris Dailey. Patient is asking for a blood panel to be placed along with a PSA for this appt. Please place orders if appropriate. Paco Hernández January 10, 2025 9:38 AM Idris Dailey APRN.JALIL 01/10/2025 9:46 AM Signed Orders placed. Idris Dailey APRN.Meme Bailey MA 01/10/2025 9:57 AM Signed Notified via [employer] (formerly [employer]). Meme Tomlinson MA Allergies As of Date: 01/10/2025 (No Known Allergies) Date Reviewed: 11/08/2024 Reviewed by: Dylan Hardin MA - Fully Assessed Reason for Visit: Orders [681] Primary Visit Diagnosis:Elevated PSA [R97.20] Other Visit Diagnoses:Hyperlipidemia, mixed [E78.2] Medicare annual wellness visit, initial [Z00.00] Order(s):PROSTATE SPECIFIC ANTIGEN, FREE AND TOTAL [SQPSATF] Order #: [id number] FUTURE LIPID PANEL, FASTING [SQLIPB] Order #: [id number] FUTURE COMPREHENSIVE METABOLIC PANEL [SQCMP] Order #: [id number] FUTURE Prescriptions as of 01/10/2025 - sildenafil (VIAGRA) 50 mg tablet Take one tablet by mouth 60 minutes prior to sexual activity. Not to exceed one tablet per 24 hours. For erectile dysfunction Problem List As Of Date 01/10/2025 Noted Resolved FX LOWER FOREARM NOS-CLOSE [S52.90XA] 10/10/2005 10/16/2005 Other facial bones, closed fracture (HCC) [S02.*10/10/2005 02/15/2014 COLLES' FRACTURE-CLOSED [S52.539A] 10/16/2005 11/28/2005 FX TRIQUETRAL, WRIST-CLOSE [S62.113A] 10/16/2005 11/28/2005 DYSMETABOLIC SYNDROME X [E88.810] 10/01/2006 Hyperlipidemia, mixed [E78.2] 04/23/2010 Tinea pedis [B35.3] 06/28/2012 05/19/2016 Encounter Status:Closed by PACO HERNÁNDEZ on 01/10/25 [facility] CNOVon 11-08-2024 CNOV Office Visit (UROLAE ) SONYA SOFIA ([id number]) 1960 M Date Time Provider Department 11/08/24 11:15 AM HERIBERTO PEREZ During your visit today, we recorded the following information about you: Pulse Blood pressure 64/minute 161/96 Heriberto Perez MD 11/08/2024 11:37 AM Signed CHIEF COMPLAINT The patient is a 64-year-old male with a history of elevated PSA, presenting for follow-up. HISTORY OF PRESENT ILLNESS: Elevated PSA: - Iso PSA of 8.6 in April. - Prostate biopsy in April was negative for cancer. - No PSA test since April. - Reports increased urinary frequency, attributes to aging and high coffee consumption. - Otherwise feeling well. @ROXANNA@ PSA (ng/mL) Date Value 04/25/2024 4.82 04/23/2010 0.95 PSA Screening (ng/mL) Date Value 04/18/2024 5.00 GLUCOSE UA (POCT) Negative 11/08/2024 BILIRUBIN UA (POCT) Negative 11/08/2024 KETONE UA (POCT) Negative 11/08/2024 SPECIFIC GRAVITY UA (POCT) 1.020 11/08/2024 HEMOGLOBIN/BLOOD UA (POCT) Negative 11/08/2024 PH UA (POCT) 6.0 11/08/2024 PROTEIN UA (POCT) Trace 11/08/2024 UROBILINOGEN UA (POCT) 0.2 11/08/2024 NITRITE UA (POCT) Negative 11/08/2024 LEUKOCYTES UA (POCT) Negative 11/08/2024 COLOR UA (POCT) Yellow 11/08/2024 CLARITY UA (POCT) Clear 11/08/2024 ALLERGIES: ALLERGIES No Known Allergies MEDICATIONS: sildenafil (VIAGRA) 50 mg tablet Take one tablet by mouth 60 minutes prior to sexual activity. Not to exceed one tablet per 24 hours. For erectile dysfunction HISTORIES: PAST MEDICAL HISTORY Diagnosis Date Elevated prostate specific antigen (PSA) 04/29/2024 Hyperlipidemia LDL goal < 130 04/23/2010 Bubba andrews 06/28/2012 has a past surgical history that includes past surgical history of; colonoscopy flx dx w/collj spec when pfrmd (10/03/11); and past surgical history of (Right, 09/08/2019). FAMILY HISTORY Problem Relation Age of Onset Heart Mother CABG, VALVE REPLACEMENT Ischemic Heart Disease Mother Hypertension Father CABG Ischemic Heart Disease Father Ischemic Heart Disease Maternal Grandfather Heart Attack Maternal Grandfather Heart Attack Paternal Grandmother Social History Tobacco Use Smoking status: Never Smokeless tobacco: Never Vaping Use Vaping status: Never Used Substance Use Topics Alcohol use: Yes Comment: occasional Drug use: Never REVIEW OF SYSTEMS: Const: Well appearing, in no acute distress, well-hydrated, well-nourished, alert, awake, oriented to time, place and person. The remainder of the ROS was reviewed and is negative. Genitourinary: (+) urinary frequency PHYSICAL EXAMINATION: General: No acute distress. BP 161/96 Pulse 64 SpO2 96% I personally reviewed the patient's radiology images and dictation and I agree with the radiologist's opinion. I personally reviewed the patient's laboratory studies. Assessment AND Plan: 1. Elevated PSA (R97.20) - Patient had a prostate biopsy in April, which was negative for malignancy. Iso PSA prior to biopsy was 8.6. - No PSA test has been conducted since April. - Ordered PSA free and total to be done immediately at any [facility] facility. - If PSA levels are elevated, additional testing such as prostate MRI or repeat PSA/iso PSA may be necessary. - If PSA levels remain stable or decrease, will recheck in one year. - Ordered PSA free and total for next year. - Discussed frequent urination; advised that high coffee intake may contribute. PSA free and total now and next year Written and verbal health teaching given to patient, patient verbalizes understanding and agrees with treatment plan. Patient will call if worsening symptoms, no improvement, or any other concerns. Plan discussed. Heriberto Perez MD Electronically Signed: Heriberto Perez MD November 08, 2024 11:37 AM This note was partially created using voice recognition software and is inherently subject to errors including those of syntax and sound-alike substitutions which may escape proofreading. In such instances, original meaning may be extrapolated by contextual derivation. Recording using [employer] software for draft documentation of the visit was discussed with the patient/authorized education courses sales representative; all questions welcomed and answered. Patient/authorized education courses sales representative agreed to proceed Patient Instructions Please go to any [facility] facility (or a lab in [place]) to have your PSA blood draw (PSA free and total) completed as soon as possible using the order provided. Your PSA will be rechecked once a year in the fall; an order for next year?s PSA has been placed. Consider reducing your coffee intake, as it may be contributing to your increased urination. We will review your PSA results and contact you if any further testing (such as a prostate MRI) is needed. Allergies As of Date: (more content not included)... Normal [facility] Free PSA [Mass/Vol]on 2024 Free PSA/Total PSA [Mass fraction] 16 % Normal [facility] Comment on above: Order Comment: Speci men Type: BLOOD SPECIMENOrdering Facility: [facility] Address: [address] [place] [address] Result Comment: Tota l and free PSA test methodology used is the Electrochemiluminescence Immunoassay by [employer]. Total or free PSA values by differing methodologies cannot be interchanged. The below table lists the probability of finding prostate cancer upon needle biopsy, for men 50 years or older and total PSA concentrations from 4.0-10.0 ng/mL. Results should be interpreted within the broader clinical context. Free PSA(%) 50-59 years 60-69 years >69 years <11 49.2% 57.5% 64.5% 11-18 26.9% 33.9% 40.8% 19-25 18.3% 23.9% 29.7% >25 9.1% 12.2% 15.8% Performed By: #### 1 0886-0 ####[facility] LABCLIA [id number] [place] [address] [place] Prostate specific Ag [Mass/Vol] 4.34 ng/mL High <2.60 [facility] Comment on above: Order Comment: Speci men Type: BLOOD SPECIMENOrdering Facility: [facility] Address: [address] [place] [address] Result Comment: Tota mt PSA test methodology used is the Electrochemiluminescence Immunoassay by [employer]. Total PSA values by differing methodologies cannot be interchanged. For an individual patient, the significance of a PSA level should be interpreted in a broad clinical context, including age, race, family history, digital rectal exam, prostate size, results of prior testing (prostate biopsy, free PSA, PCA3), and use of 5-alpha reductase inhibitors. Considering the high incidence of asymptomatic cancer in the general population that may not pose an ultimate risk to a patient, the decision to recommend urological evaluation or prostate biopsy should be individualized after consideration of all these factors. REFERENCE: Sri Tsai M.D., M.P.H., Marko Hemphill M.D., Ph.D., Ralph Tobar M.D., Morena Brothers, M.P.H., Salome Franks, Trice. Effect of Verification Bias on Screening for Prostate Cancer by Measurement of Prostatic Specific Antigen. N Engl J Med 2003,349:335-42. Performed By: #### 1 0886-0 ####[facility] LABCLIA [id number] [place] [address] [place] UA DIP, URINE (POC)on 2024 BILIRUBIN UA (POCT) Negative Negative [facility] CLARITY UA (POCT) Clear [facility] COLOR UA (POCT) Yellow [facility] GLUCOSE UA (POCT) Negative Negative mg/dL [facility] Hemoglobin Ql (U) Negative Negative [facility] Interpretation and review of laboratory results Abnormal [facility] KETONE UA (POCT) Negative Negative mg/dL [facility] LEUKOCYTES UA (POCT) Negative Negative [facility] NITRITE UA (POCT) Negative Negative [facility] PH UA (POCT) 6 4.5 - 8.0 [facility] Protein Ql (U) Trace Abnormal Negative mg/dL [facility] SPECIFIC GRAVITY UA (POCT) 1.02 1.005 - 1.030 [facility] UROBILINOGEN UA (POCT) 0.2 Normal E.U./dL [facility] Location:[facility], [address] [place] [address], [address] [place] [address] POINT OF CARE [facility] CNOVon 06-10-2024 CNOV Office Visit (FRFHWS ) SONYA SOFIA ([id number]) 1960 Date Time Provider Department 06/10/24 11:30 AM SONIDO MAURICIO V FRWS During your visit today, we recorded the following information about you: Christy Vergara MA 06/10/2024 12:53 PM Signed AMB ROOMING INTAKE FLOWSHEET DATA Sonido Mauricio V, DO 06/10/2024 12:53 PM Signed SERVICE DATE: June 10, 2024 PCP: Golden Michel MD Subjective Patient ID: Jimenez is a 63 year old male. Chief Complaint: Patient presents with: right hip pain PAIN EVALUATION No data found in the last 1 encounters. HPI Patient presents today for evaluation of right lateral hip pain. He states the pain started about 10 days ago with no specific injury that he is aware of. He thinks that there is possible relationship to changing his gait pattern due to a foot problem that he has had addressed. He reports pain along the lateral aspect of the hip that is worse with hip rotation. He notes that the pain has improved significantly since he made the appointment and today is minimally present. Have x-rays done which showed some arthritic changes and he would like to follow-up. Review of Systems ACTIVE PROBLEM LIST Dysmetabolic Syndrome X Hyperlipidemia, Mixed PAST MEDICAL HISTORY Diagnosis Date Elevated prostate specific antigen (PSA) 04/29/2024 Hyperlipidemia LDL goal < 130 04/23/2010 Tinea pedis 06/28/2012 PAST SURGICAL HISTORY Procedure Laterality Date COLONOSCOPY FLX DX W/COLLJ SPEC WHEN PFRMD 10/03/11 repeat 10 years PAST SURGICAL HISTORY OF bilateral foot surgery PAST SURGICAL HISTORY OF Right 09/08/2019 Shoulder tendon repair FAMILY HISTORY Problem Relation Age of Onset Heart Mother CABG, VALVE REPLACEMENT Ischemic Heart Disease Mother Hypertension Father CABG Ischemic Heart Disease Father Ischemic Heart Disease Maternal Grandfather Heart Attack Maternal Grandfather Heart Attack Paternal Grandmother Social History Tobacco Use Smoking status: Never Smokeless tobacco: Never Vaping Use Vaping status: Never Used Substance Use Topics Alcohol use: Yes Comment: occasional Drug use: Never ALLERGIES No Known Allergies MEDICATIONS: sildenafil (VIAGRA) 50 mg tablet Take one tablet by mouth 60 minutes prior to sexual activity. Not to exceed one tablet per 24 hours. For erectile dysfunction Allergies, medications, past surgical history, family history and past medical history were reviewed per this encounter. Objective Ortho Exam 63-year-old male is pleasant cooperative with exam in no acute distress. Evaluation of the right hip shows area of tenderness being over the posterior aspect of the greater trochanter. There is minimal tenderness with palpation. Hip flexion abduction and external rotation is mildly restricted compared to the left side. There is no pain with logroll. There is no pain with active hip motion resistance. Strays reviewed with the patient showing mild arthritic changes in the right hip Assessment/Plan ASSESSMENT Diagnosis (M25.551) Pain of right hip Plan: CONSULT TO ORTHOPAEDICS Office Visit on 06/10/24 CONSULT TO ORTHOPAEDICS PLAN Although x-rays are showing mild arthritic changes, I do not believe that the pain he was having is a result of arthritis. It sounds more like he was having inflammation over the trochanter and that he is medius tendon. Hip pain has since resolved. He is doing some physical therapy and home exercises for maintenance which I do recommend that he continue. FOLLOW-UP: No follow-ups on file. SIGNATURE: Sonido Mauricio DO PATIENT NAME: Sonya Sofia DATE: June 10, 2024 TIME: 12:49 PM Referring Provider: MARCUS HARO [[id number]] Allergies As of Date: 06/10/2024 (No Known Allergies) Date Reviewed: 06/10/2024 Reviewed by: Christy Vergara MA - Fully Assessed Reason for Visit: right hip pain [Other] Visit Diagnosis:Pain of right hip [M25.551] Order(s):CONSULT TO ORTHOPAEDICS [9026] Order #: [id number]: 1 Prescriptions as of 06/10/2024 - sildenafil (VIAGRA) 50 mg tablet Take one tablet by mouth 60 minutes prior to sexual activity. Not to exceed one tablet per 24 hours. For erectile dysfunction Problem List As Of Date 06/10/2024 Noted Resolved FX LOWER FOREARM NOS-CLOSE [S52.90XA] 10/10/2005 10/16/2005 Other facial bones, closed fracture (HCC) [S02.*10/10/2005 02/15/2014 COLLES' FRACTURE-CLOSED [S52.539A] 10/16/2005 11/28/2005 FX TRIQUETRAL, WRIST-CLOSE [S62.113A] 10/16/2005 11/28/2005 DYSMETABOLIC SYNDROME X [E88.810] 10/01/2006 Hyperlipidemia, mixed [E78.2] 04/23/2010 Tinea pedis [B35.3] 06/28/2012 05/19/2016 Encounter Status:Closed by SONIDO MAURICIO V on 06/10/24 [facility] - bilateral AP and L ateral and obliqueon 06-09-2024 IMPRESSION: 1. 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 2. Left hallux valgus. 3. Left second hammertoe. Chip Drier: LEONARD Transcribe Date/Time: Jun 09 2024 10:53P Dictated by : BOBBY LI MD This examination was interpreted and the report reviewed and electronically signed by: BOBBY LI MD on Jun 09 2024 10:54PM [facility] DIVISION OF RADIOLOGY * * *Final Report* * * DATE OF EXAM: Jun 06 2024 9:35AM [id number] - XR FOOT 3V AP/LAT/OBL SHILA / PROCEDURE REASON: multiple diagnoses * * * * Physician Interpretation * * * * EXAMINATION / TECHNIQUE: XR FOOT 3V AP/LAT/OBL SHILA PATIENT/TECHNOLOGIST PROVIDED HISTORY: PT STATES RIGHT FOOT LITTLE TOE CALLUS AND LEFT FOOT 2ND TOE HAMMER TOE CLINICAL INFORMATION ( PROVIDED BY ORDERING CLINICIAN) : Callus of foot Hammer toes of both feet Hammer toes of both feet COMPARISON: RESULT: Advanced right and moderate left first MTP osteoarthritis with bone on bone joint space narrowing on the right, subchondral degenerative changes, and osteophytes. No acute fracture or dislocation. Mild left hallux valgus. There is some bony irregularity along the medial first metatarsal heads bilaterally which may relate to remote bunionectomies. There is some adjacent calcification in this region on the left, which again may be postoperative. Os navicular bilaterally, somewhat fragmented on the left. Left second hammertoe. DIVISION OF RADIOLOGY [facility]/09/[facility]24 * * *Final Report* * * DATE OF EXAM: Jun 06 2024 9:35AM [id number] [id number] - XR FOOT 3V AP/LAT/OBL SHILA / PROCEDURE REASON: multiple diagnoses * * * * Physician Interpretation * * * * EXAMINATION / TECHNIQUE: XR FOOT 3V AP/LAT/OBL SHILA PATIENT/TECHNOLOGIST PROVIDED HISTORY: PT STATES RIGHT FOOT LITTLE TOE CALLUS AND LEFT FOOT 2ND TOE HAMMER TOE CLINICAL INFORMATION ( PROVIDED BY ORDERING CLINICIAN) : Callus of foot Hammer toes of both feet Hammer toes of both feet COMPARISON: RESULT: Advanced right and moderate left first MTP osteoarthritis with bone on bone joint space narrowing on the right, subchondral degenerative changes, and osteophytes. No acute fracture or dislocation. Mild left hallux valgus. There is some bony irregularity along the medial first metatarsal heads bilaterally which may relate to remote bunionectomies. There is some adjacent calcification in this region on the left, which again may be postoperative. Os navicular bilaterally, somewhat fragmented on the left. Left second hammertoe. IMPRESSION IMPRESSION: 1. 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 2. Left hallux valgus. 3. Left second hammertoe. Chip Drier: LEONARD Transcribe Date/Time: Jun 09 2024 10:53P Dictated by : BOBBY LI MD This examination was interpreted and the report reviewed and electronically signed by: BOBBY LI MD on Jun 09 2024 10:54PM EST [facility] XR Foot - bilateral AP and L ateral and obliqueOrdered By: Ccf Provider on 06-09-2024 [facility] CNOVon 06-06-2024 CNOV Office Visit (PODIWS ) SONYA SOFIA ([id number]) 1960 M Date Time Provider Department 06/06/24 8:15 AM SHIRLEY TAVERAS During your visit today, we recorded the following information about you: Halle Brenner RN 06/12/2024 11:14 AM Signed AMB ROOMING INTAKE FLOWSHEET DATA Pain Pain Level: 3 (can get to 7/10) Pain Location: Foot-Right Duration Amount of Time: 2 Duration Units: Months Frequency: Intermittent Intervention/Comfort measure: Reposition, Cold Comments: Both feet have sore toes. Patient presents with: Left Foot - Established Patient, Follow Up, Athlete Foot Right Foot - Established Patient, Follow Up, Pain, Athlete Foot Patient presents for athletes foot to both feet that has been ongoing for about 25 years. Has tried some OTC and prescription strength medication for it. Also states that right 5th toe he injured a while back and it has not gotten better. Hx. Of hammer toe to left middle toe. HERIBERTO 07/29/22 Shirley Taveras 06/12/2024 11:14 AM Signed Initial Podiatric Office Visit: Chief Complaint: This 63 year old male who presents with chief complaint:right 5th toe pain HPI Patient presents to clinic for evaluation of right foot Complains of pain to the 5th toe This has been present since Currently not really doing anything for the pain. He thought it may have been related to ahtletes' foot. Is using a cream/powder and that may be helping. PAIN EVALUATION 06/03/2024 1611 06/06/2024 0811 Pain Level: 3 3 can get to 7/10 Pain Location: Foot-Right -- Duration Amount of Time: 2 -- Duration Units: Months -- Frequency: Intermittent -- Intervention/Comfort measure: Reposition;Cold -- Comments: Both feet have sore toes. -- Hemoglobin A1C (%) Date Value 04/18/2024 5.6 04/04/2023 5.6 06/11/2022 5.8 PCP: Golden Michel MD PAST MEDICAL HISTORY Diagnosis Date Elevated prostate specific antigen (PSA) 04/29/2024 Hyperlipidemia LDL goal < 130 04/23/2010 Tinea pedis 06/28/2012 Current Outpatient Medications Medication Sig sildenafil (VIAGRA) 50 mg tablet Take one tablet by mouth 60 minutes prior to sexual activity. Not to exceed one tablet per 24 hours. For erectile dysfunction No current facility-administered medications for this visit. ALLERGIES No Known Allergies PAST SURGICAL HISTORY Procedure Laterality Date COLONOSCOPY FLX DX W/COLLJ SPEC WHEN PFRMD 10/03/11 repeat 10 years PAST SURGICAL HISTORY OF bilateral foot surgery PAST SURGICAL HISTORY OF Right 09/08/2019 Shoulder tendon repair FAMILY HISTORY Problem Relation Age of Onset Heart Mother CABG, VALVE REPLACEMENT Ischemic Heart Disease Mother Hypertension Father CABG Ischemic Heart Disease Father Ischemic Heart Disease Maternal Grandfather Heart Attack Maternal Grandfather Heart Attack Paternal Grandmother Social History Tobacco Use Smoking status: Never Smokeless tobacco: Never Vaping Use Vaping status: Never Used Substance Use Topics Alcohol use: Yes Comment: occasional Drug use: Never REVIEW OF SYSTEMS GENERAL: Negative for Malaise, significant weight loss, fever RESPIRATORY: Negative for cough, wheezing and shortness of breath CARDIOVASCULAR: Negative for chest pain, leg swelling and palpitations GI: Negative for abdominal discomfort, blood in stools or black stools and change in bowel habits : Negative for dysuria, frequency and incontinence MUSCULOSKELETAL: Negative for joint pain or swelling, back pain, and muscle pain. SKIN: Negative for lesions, rash, and itching. HEMATOLOGY/LYMPHOLOGY Negative for prolonged bleeding, bruising easily, and swollen nodes. ENDOCRINE: Negative for cold or heat intolerance, polyuria, polydipsia and goiter. NEURO: negative Physical Exam: Constitutional: Pt is a well developed 63 year old male who is alert, oriented and cooperative Eyes: Following during examination. No redness or drainage. Respiratory: RR normal and nonlabored. Even breathing. No evidence of distress or shortness of breath. Psychology: Patient is engaged during conversation. Normal affect and mood. Does not appear depressed or anxious during encounter. Vascular: Dorsalis pedis and posterior tibial pulses palpable as b/l Capillary Fill time < 5 seconds to digits 1-5 b/l Skin temperature warm to warm proximal to distal b/l Hair growth present to digits Neurological: intact light touch/epicritic sensation b/l intact protective sensation no significant neurological deficits Dermatological: Nails 1-5 b/l appear normal. Webspaces clean and dry 1-4 b/l. No open lesions present. Hyperkeratosis present to medial aspect of right 5th toe. No ulceration. No signs of infection Scaling is noted to right foot. Musculoskeletal/Orthopaedic: Patient has pain to palpation of right 5th toe at site of call (more content not included)... Normal [facility] XR FOOT 3V AP/LAT/OBL BILon 06-06-2024 XR FOOT 3V AP/LAT/OBL SHILA * * *Final Report* * * DATE OF EXAM: Jun 06 2024 9:35AM [id number] [id number] - XR FOOT 3V AP/LAT/OBL SHILA / PROCEDURE REASON: multiple diagnoses * * * * Physician Interpretation * * * * EXAMINATION / TECHNIQUE: XR FOOT 3V AP/LAT/OBL SHILA PATIENT/TECHNOLOGIST PROVIDED HISTORY: PT STATES RIGHT FOOT LITTLE TOE CALLUS AND LEFT FOOT 2ND TOE HAMMER TOE CLINICAL INFORMATION ( PROVIDED BY ORDERING CLINICIAN) : Callus of foot Hammer toes of both feet Hammer toes of both feet COMPARISON: RESULT: Advanced right and moderate left first MTP osteoarthritis with bone on bone joint space narrowing on the right, subchondral degenerative changes, and osteophytes. No acute fracture or dislocation. Mild left hallux valgus. There is some bony irregularity along the medial first metatarsal heads bilaterally which may relate to remote bunionectomies. There is some adjacent calcification in this region on the left, which again may be postoperative. Os navicular bilaterally, somewhat fragmented on the left. Left second hammertoe. IMPRESSION: 1. 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 2. Left hallux valgus. 3. Left second hammertoe. Chip Drier: LEONARD Transcribe Date/Time: Jun 09 2024 10:53P Dictated by : BOBBY LI MD This examination was interpreted and the report reviewed and electronically signed by: BOBBY LI MD on Jun 09 2024 10:54PM EST [id number] Normal [facility] XR Foot - bilateral AP and L ateral and obliqueon 06-06-2024 Radiology Study observation (narrative) [facility] CNOVon 06-03-2024 CNOV Office Visit (UCWSTR ) SONYA SOFIA ([id number]) 1960 M Date Time Provider Department 06/03/24 8:30 AM MARCUS HARO [facility] During your visit today, we recorded the following information about you: Temperature Pulse Respiration Blood pressure 98.4 degrees 70/minute 18/minute 162/79 Weight 86.6 kg Marcus Haro APRN.CHIEF DEPUTY COURT CLERK 06/03/2024 9:52 AM Signed Subjective HPI Nontoxic-appearing male presents urgent care chief complaint right hip pain. Duration of symptoms 3 days. Associated symptoms right hip discomfort. Started last Thursday mildly has worsened over the last few few days. Presents today for evaluation. No trauma. No leg weakness or saddle anesthesia or incontinence. No numbness or radiculopathy. No back pain. 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 Denies hip pain in the past. Denies osteoarthritis. Past medical history prescription medications allergies reviewed. No surgeries or fractures previously to this area. .Patient presents with: Right Hip Pain: X3 days PAST MEDICAL HISTORY Diagnosis Date Elevated prostate specific antigen (PSA) 04/29/2024 Hyperlipidemia LDL goal < 130 04/23/2010 Tinea pedis 06/28/2012 PAST SURGICAL HISTORY Procedure Laterality Date COLONOSCOPY FLX DX W/COLLJ SPEC WHEN PFRMD 10/03/11 repeat 10 years PAST SURGICAL HISTORY OF bilateral foot surgery PAST SURGICAL HISTORY OF Right 09/08/2019 Shoulder tendon repair ALLERGIES Patient has no known allergies. MEDICATIONS sildenafil (VIAGRA) 50 mg tablet Take one tablet by mouth 60 minutes prior to sexual activity. Not to exceed one tablet per 24 hours. For erectile dysfunction FAMILY HISTORY Problem Relation Age of Onset Heart Mother CABG, VALVE REPLACEMENT Ischemic Heart Disease Mother Hypertension Father CABG Ischemic Heart Disease Father Ischemic Heart Disease Maternal Grandfather Heart Attack Maternal Grandfather Heart Attack Paternal Grandmother Social History Tobacco Use Smoking status: Never Smokeless tobacco: Never Vaping Use Vaping status: Never Used Substance Use Topics Alcohol use: Yes Comment: occasional Drug use: Never BP 162/79 Pulse 70 Temp 36.9 ?C (98.4 ?F) Resp 18 Wt 86.6 kg (190 lb 14.7 oz) SpO2 98% BMI 30.81 kg/m? Review of Systems Constitutional: Negative for chills, fever and malaise/fatigue. Musculoskeletal: Positive for joint pain. Negative for back pain, falls, myalgias and neck pain. Neurological: Negative for dizziness, loss of consciousness, weakness and headaches. Objective Physical Exam Constitutional: General: He is not in acute distress. Appearance: He is not toxic-appearing. HENT: Head: Normocephalic. Nose: Nose normal. Eyes: Pupils: Pupils are equal, round, and reactive to light. Cardiovascular: Rate and Rhythm: Normal rate. Pulmonary: Effort: Pulmonary effort is normal. No respiratory distress. Musculoskeletal: Cervical back: Normal range of motion. Legs: Comments: Pain with palpation over highlighted area. No weakness. No erythema edema. No warmth. Skin: General: Skin is warm and dry. Neurological: General: No focal deficit present. Mental Status: He is alert. ASSESSMENT/PLAN: 1. Pain of right hip - ICD9: 719.45, ICD10: M25.551 - XR HIP GENERAL 3V PELV/AP/LAT RIGHT IMPRESSION: No acute osseous abnormality. Mild RIGHT hip osteoarthritis. Diagnosed with right hip pain. Treat with NSAIDs or Tylenol. Orthopedic referral placed. Symptoms are not improving follow-up with orthopedics. Patient was educated on supportive therapies. Patient will follow up with primary care provider as needed. Patient was instructed to immediately proceed to emergency room for any new, worsening, or symptoms lasting longer than anticipated. The patient's clinical presentation is otherwise unremarkable at this time. Based on exam and clinical finding, the patient is stable for discharge. Plan of care was discussed with patient. Patient verbalizes understanding and agrees to plan of care. This note was generated using [employer] software. It may contain errors in wording, punctuation, or spelling. Marcus Haro APRN.CHIEF DEPUTY COURT CLERK Allergies As of Date: 06/03/2024 (No Known Allergies) Date Reviewed: 06/03/2024 Reviewed by: Marcus Haro APRN.CHIEF DEPUTY COURT CLERK - Fully Assessed Reason for Visit: Right Hip Pain [1554] Cmt: X3 days Primary Visit Diagnosis:Pain of right hip [M25.551] Order(s):XR HIP GENERAL 3V PELV/AP/LAT RIGHT [2812657] Order #: [id number] FUTURE CONSULT TO ORTHOPAEDICS [9026] Order #: [id number]: 1 FUTURE Prescriptions as of 06/03/2024 - sildenafil (VIAGRA) 50 mg tablet Take one tablet by mouth 60 minutes prior to sexual activity. Not to exceed one tablet per 24 hours. For erectile dysfunction Problem List As Of Date 06/03/2024 Noted Reso (more content not included)... Normal [facility] XR HIP 3V PELV+ AP/LAT RTon 06-03-2024 XR HIP 3V PELV+ AP/LAT RT * * *Final Report* * * DATE OF EXAM: Jun 03 2024 9:30AM WOX [id number] - XR HIP 3V PELV+ AP/LAT RT / PROCEDURE REASON: Pain of right hip * * * * Physician Interpretation * * * * EXAMINATION: XR HIP 3V PELV+ AP/LAT RT PATIENT/TECHNOLOGIST PROVIDED HISTORY: Acute right hip pain, no known injury. CLINICAL INFORMATION: 63 years old Male with Pain of right hip TECHNIQUE: XR HIP 3V PELV+ AP/LAT RT Laterality: RIGHT Number of different views (projections): 3 COMPARISON: None RESULT: No fracture. Mild RIGHT hip osteoarthritis with degenerative subchondral cystic change in the superolateral hip joint. LEFT hip joint space is maintained. Sacroiliac joints are symmetric and maintained. Degenerative changes at the pubic symphysis with sclerosis. Degenerative changes in the visualized lumbar spine. IMPRESSION: No acute osseous abnormality. Mild RIGHT hip osteoarthritis. Chip Drier: LEONARD Transcribe Date/Time: Jun 03 2024 9:32A Dictated by : HENRY PAGE DO This examination was interpreted and the report reviewed and electronically signed by: HENRY PAGE DO on Jun 03 2024 9:35AM EST [id number] Normal [facility] XR Pelvis and Hip - right AP and Lateral frogon 06-03-2024 IMPRESSION: No acute osseous abnormality. Mild RIGHT hip osteoarthritis. Chip Drier: LEONARD Transcribe Date/Time: Jun 03 2024 9:32A Dictated by : HENRY PAGE DO This examination was interpreted and the report reviewed and electronically signed by: HENRY PAGE DO on Jun 03 2024 9:35AM EST DIVISION OF RADIOLOGY * * *Final Report* * * DATE OF EXAM: Jun 03 2024 9:30AM WOX [id number] - XR HIP 3V PELV+ AP/LAT RT / PROCEDURE REASON: Pain of right hip * * * * Physician Interpretation * * * * EXAMINATION: XR HIP 3V PELV+ AP/LAT RT PATIENT/TECHNOLOGIST PROVIDED HISTORY: Acute right hip pain, no known injury. CLINICAL INFORMATION: 63 years old Male with Pain of right hip TECHNIQUE: XR HIP 3V PELV+ AP/LAT RT Laterality: RIGHT Number of different views (projections): 3 COMPARISON: None RESULT: No fracture. Mild RIGHT hip osteoarthritis with degenerative subchondral cystic change in the superolateral hip joint. LEFT hip joint space is maintained. Sacroiliac joints are symmetric and maintained. Degenerative changes at the pubic symphysis with sclerosis. Degenerative changes in the visualized lumbar spine. DIVISION OF RADIOLOGY Provider, [facility] - 06/03/2024 * * *Final Report* * * DATE OF EXAM: Jun 03 2024 9:30AM WOX [id number] - XR HIP 3V PELV+ AP/LAT RT / PROCEDURE REASON: Pain of right hip * * * * Physician Interpretation * * * * EXAMINATION: XR HIP 3V PELV+ AP/LAT RT PATIENT/TECHNOLOGIST PROVIDED HISTORY: Acute right hip pain, no known injury. CLINICAL INFORMATION: 63 years old Male with Pain of right hip TECHNIQUE: XR HIP 3V PELV+ AP/LAT RT Laterality: RIGHT Number of different views (projections): 3 COMPARISON: None RESULT: No fracture. Mild RIGHT hip osteoarthritis with degenerative subchondral cystic change in the superolateral hip joint. LEFT hip joint space is maintained. Sacroiliac joints are symmetric and maintained. Degenerative changes at the pubic symphysis with sclerosis. Degenerative changes in the visualized lumbar spine. IMPRESSION IMPRESSION: No acute osseous abnormality. Mild RIGHT hip osteoarthritis. Chip Drier: PSCB Transcribe Date/Time: Jun 03 2024 9:32A Dictated by : HENRY PAGE DO This examination was interpreted and the report reviewed and electronically signed by: HENRY PAGE DO on Jun 03 2024 9:35AM EST [facility] Radiology Study observation (narrative) [facility] XR Pelvis and Hip - right AP and Lateral frogOrdered By: Ccf Provider on 06-03-2024 [facility] CNPNon 05-31-2024 [facility]ON[facility] SO[facility] ([id number]) 1960 M Date Time Provider Department 05/31/[facility] During your visit today, we recorded the following information about you: Alex Brewer, RN 05/31/2024 9:52 AM Signed Pt states he saw Pinky Wilson in late March and was having some issues with his toes. Pt states this has not improved and thought that Pinky said she would refer him to Podiatry if the problem continued. Per OV note from 04/25, pt had a fungal skin infection and was instructed to follow up with podiatry if no improvement. Referral pended. Please call pt once referral has been placed to schedule the appt. Pinky Wilson APRN.JALIL 05/31/2024 1:24 PM Signed Consult has been placed for podiatry, he may schedule appointment any time. Thank you. Pinky Wilson APRN.Therese Posey MA 05/31/2024 2:07 PM Signed Pt sent [employer] message notifying him Podiatry referral has been placed. Pt notified he can contact office and speak with [facility] Administrator to help assist him to setup appt. SAWYER Richmond Sherrie 06/01/2024 10:51 AM Signed 1st attempt left message to return call to schedule podi. Evelin Ledesma 06/02/2024 9:31 AM Signed 2 nd attempt left message to return call. Allergies As of Date: 05/31/2024 (No Known Allergies) Date Reviewed: 05/25/2024 Reviewed by: Yang Charlton MA - Fully Assessed Reason for Visit: Consult [502] Primary Visit Diagnosis:Fungal skin infection [B36.9] Order(s):CONSULT TO PODIATRY [9034] Order #: [id number]: 1 FUTURE Prescriptions as of 06/02/2024 - sildenafil (VIAGRA) 50 mg tablet Take one tablet by mouth 60 minutes prior to sexual activity. Not to exceed one tablet per 24 hours. For erectile dysfunction Problem List As Of Date 05/31/2024 Noted Resolved FX LOWER FOREARM NOS-CLOSE [S52.90XA] 10/10/2005 10/16/2005 Other facial bones, closed fracture (HCC) [S02.*10/10/2005 02/15/2014 COLLES' FRACTURE-CLOSED [S52.539A] 10/16/2005 11/28/2005 FX TRIQUETRAL, WRIST-CLOSE [S62.113A] 10/16/2005 11/28/2005 DYSMETABOLIC SYNDROME X [E88.810] 10/01/2006 Hyperlipidemia, mixed [E78.2] 04/23/2010 Tinea pedis [B35.3] 06/28/2012 05/19/2016 Encounter Status:Closed by THERESE CABELLO on 05/31/24 [facility] Ciarra 05-30-2024 ENOCH Telephone ([facility]) SONYA SOFIA ([id number]) 1960 Date Time Provider Department 05/30/24 HERIBERTO PEREZ AKELDA During your visit today, we recorded the following information about you: Yang Charlton MA 05/30/2024 9:19 AM Signed Called and gave Jimenez biopsy results, Jimenez decided to follow up in 6 months with PSA 1 week prior as he has no post op issues or concerns. PSA order is pended for upcoming appointment in October 2024. Allergies As of Date: 05/30/2024 (No Known Allergies) Date Reviewed: 05/25/2024 Reviewed by: Yang Charlton MA - Fully Assessed Primary Visit Diagnosis:Elevated PSA [R97.20] Order(s):PROSTATE-SPECIFIC ANTIGEN DIAGNOSTIC [SQPSA] Order #: [id number] FUTURE Prescriptions as of 05/30/2024 - sildenafil (VIAGRA) 50 mg tablet Take one tablet by mouth 60 minutes prior to sexual activity. Not to exceed one tablet per 24 hours. For erectile dysfunction Problem List As Of Date 05/30/2024 Noted Resolved FX LOWER FOREARM NOS-CLOSE [S52.90XA] 10/10/2005 10/16/2005 Other facial bones, closed fracture (HCC) [S02.*10/10/2005 02/15/2014 COLLES' FRACTURE-CLOSED [S52.539A] 10/16/2005 11/28/2005 FX TRIQUETRAL, WRIST-CLOSE [S62.113A] 10/16/2005 11/28/2005 DYSMETABOLIC SYNDROME X [E88.810] 10/01/2006 Hyperlipidemia, mixed [E78.2] 04/23/2010 Tinea pedis [B35.3] 06/28/2012 05/19/2016 Encounter Status:[facility] Office Visit (UROLAE ) SONYA SOFIA ([id number]) 1960 M Date Time Provider Department 05/25/24 8:30 AM HERIBERTO PEREZ During your visit today, we recorded the following information about you: Pulse Blood pressure Height 67/minute 149/84 1.676 m Heriberto Perez MD 05/25/2024 9:35 AM Signed Pre-op diagnosis: Elevated PSA Postop diagnosis: Elevated PSA Procedure: Transrectal ultrasound-guided biopsy the prostate The patient was seen in the office today for follow-up evaluation and transrectal ultrasound guided prostate biopsy for a history of elevated psa. He is doing well with no new significant complaints. PSA (ng/mL) Date Value 04/25/2024 4.82 04/23/2010 0.95 PSA Screening (ng/mL) Date Value 04/18/2024 5.00 A urinalysis was performed revealing: no evidence of infection or hematuria. No results found for: PH, SPGR, UGLUC, UBILI, UKET, UHB, UPROT, UROBIL, UWBC, SSA UNIVERSAL PROTOCOL / SAFETY CHECKLIST Procedure to be Performed: Transrectal ultrasound-guided biopsy of the prostate Sign In: A Moment of CARE was completed. Personnel directly involved with the procedure wore the appropriate PPE (Personal Protective Equipment). Patient/Surrogate Stated/Verified: PATIENT VERIFIED(optional for EMERGENT procedures): Patient name, Date of , Relevant allergies, and The intended procedure Time Out Communication: Intended patient and procedure match the source documents. Consent documented and matches the intended procedure. Sign Out: SIGN OUT (optional for EMERGENT procedures): All specimen containers correctly labeled. Heriberto Perez MD TRANS RECTAL ULTRASOUND PROSTATE BIOPSY The patient confirmed that he had discontinued all aspirin products, blood thinners and NSAIDS as directed, and that the prescribed prep and prophylactic antibiotics were taken as directed. The patient was again explicitly asked to call us if he has any symptoms such as fever after the biopsy. His also asked to call us and proceed directly to the emergency room if he has a fever over 101.5 The benefits and risks of the transrectal ultrasound guided prostate biopsy procedure were discussed with the patient, especially the potential complications of prostate biopsy including, but not limited to: pain, infection, bleeding, hematochezia, hematuria, worsening of voiding symptoms, urinary retention, sepsis and possible need for additional biopsies. All questions were answered to the patient's satisfaction. Verbal consent for transrectal ultrasound-guided prostate biopsy was obtained from the patient. The written consent will be scanned into to the patient's electronic medical record. Procedure: The patient was placed on the procedure table in the lateral recumbent position. The well-lubricated transrectal ultrasound probe was carefully and atraumatically inserted into the rectum and the prostate was visualized. A prostate volume of approximately 57 grams. The prostate was homogeneous. A periprostatic block was then given in the standard fashion, using 1% lidocaine with a spinal needle under directed transrectal ultrasound guidance. Once adequate anesthesia was achieved, 6 needle biopsy cores were taken from the left and right lobes of the prostate. Specimens were sent to pathology for histologic evaluation. The patient tolerated the procedure well without complications. Prostate Ultrasound With Needle Biopsy Prostate Patient was instructed to stop all aspirin products 10 days prior to the procedure. I explained the options concerning the findings of a prostatic nodule both with and without an elevated PSA, as well as an elevated PSA without a prostate nodule. I specifically explained to him the procedure, the reason for doing this, the possible complications, and the fact that a negative prostate biopsy does not definitely indicate that there is no prostate cancer present, but only that there was no malignancy found in the biopsy specimens. I explained the possibility of impotency and some incontinence, blood in the urine, stool, and/or semen. He may also experience frequency, urgency, and dysuria after the procedure. I explained the remote possibility of blood loss and the possibility of infection of the prostate and rectum post operatively. I explained that his risks included bleeding infection and the possibility of even very severe illness including . I explained that the procedure would be done through the rectum and that there was a small chance of a rectal fistula leading to a colostomy and possible further surgery. The patient expressed an understanding with regard to possible benefits, risks, complications and outcome. Educational materials concerning the proposed surgical procedure were supplied to the patient. The patient was explicitly asked (more content not included)... [facility] SURGICAL PATHOLOGYon 024 CASE REPORT [facility] Comment on above: Order Comment: Speci men Type: TISSUE SPECIMEN Ordering Facility: [facility] Address: [address] [place] [address] Result Comment: Surg [facility] Pathology Report Case: [id number] Authorizing Provider: Heriberto Perez MD Collected: 05/25/2024 11:43 AM Ordering Location: Urology Received: 05/26/2024 09:47 AM Pathologist: Slime Bellamy MD Specimens: A) - Prostate, Left, Base, Biopsy B) - Prostate, Left, [place], Biopsy C) - Prostate, Left, Lateral Base, Biopsy D) - Prostate, Left, Lateral Belcamp , Biopsy E) - Prostate, Right, Base, Biopsy F) - Prostate, Right, Belcamp, Biopsy G) - Prostate, Right, Lateral Base, Biopsy H) - Prostate, Right, Lateral Belcamp, Biopsy Performed By: #### S #### [facility][1] [facility] CLIA [id number] [address] [place] [address] CLINICAL HISTORY elevated psa [facility] Comment on above: Order Comment: Speci men Type: TISSUE SPECIMEN Ordering Facility: [facility] Address: [address] [place] [address] Performed By: #### S #### [facility][1] [facility] CLIA [id number] [address] [place] [address] Sandor Quiñonez revie wed part A1 and agrees with the diagnosis [facility] Comment on above: Order Comment: Speci men Type: TISSUE SPECIMEN Ordering Facility: [facility] Address: [address] [place] [address] Performed By: #### S #### [facility][1] [facility] CLIA [id number] [address] [place] [address] FINAL DIAGNOSIS [facility] Comment on above: Order Comment: Speci men Type: TISSUE SPECIMEN Ordering Facility: [facility] Address: [address] [place] [address] Result Comment: A. P rostate, left base, biopsy: - Benign prostatic tissue. B. Prostate, left apex, biopsy: - Benign prostatic tissue. C. Prostate, left lateral base, biopsy: - Benign prostatic tissue. D. Prostate, left lateral apex, biopsy: - Benign prostatic tissue. E. Prostate, right base, biopsy: - Benign prostatic tissue. F. Prostate, right apex, biopsy: - benign prostatic tissue. G. Prostate, right lateral base, biopsy: - Benign prostatic tissue. H. Prostate, right lateral apex, biopsy: - Benign prostatic tissue. Performed By: #### S #### [facility][1] [facility] CLIA [id number] [address] FINAL PERFORMING LAB [facility] Comment on above: Order Comment: Speci men Type: TISSUE SPECIMEN Ordering Facility: [facility] Address: [address] [place] [address] Result Comment: Diag nostic interpretation performed at [facility], [address] [place] [address] CLIA# [id number] Metal Welder: Blaine Orellana M.D. Performed By: #### S #### [facility][1] [facility] CLIA [id number] [address] [place] [address] GROSS DESCRIPTION [facility] Comment on above: Order Comment: Speci men Type: TISSUE SPECIMEN Ordering Facility: [facility] Address: [address] [place] [address] Result Comment: A. P rostate, Left, Base, Biopsy Received in formalin labeled left base are 2 segments of cylindrical tissue ranging in length from 1.5 to 1.8 cm and averaging 0.1 cm in diameter, herron and of a soft and friable consistency. Totally submitted in formalin in cassette A1. B. Prostate, Left, Belcamp, Biopsy Received in formalin labeled left apex is one herron, cylindrical fragment of soft tissue measuring 1.6 x 0.1 x 0.1 cm. Totally submitted in cassette B1. C. Prostate, Left, Lateral Base, Biopsy Received in formalin labeled left lateral base are 2 segments of cylindrical tissue ranging in length from 1 to 1.5 cm and averaging 0.1 cm in diameter, herron and of a soft and friable consistency. Totally submitted in formalin in cassette C1. D. Prostate, Left, Lateral Belcamp , Biopsy Received in formalin labeled left lateral apex is one herron, cylindrical fragment of soft tissue measuring 1.5 x 0.1 x 0.1 cm. Totally submitted in cassette D1. E. Prostate, Right, Base, Biopsy Received in formalin labeled right base are 2 segments of cylindrical tissue ranging in length from 1.5 to 1.8 cm and averaging 0.1 cm in diameter, herron and of a soft and friable consistency. Totally submitted in formalin in cassette E1,. F. Prostate, Right, Belcamp, Biopsy Received in formalin labeled right apex is one herron, cylindrical fragment of soft tissue measuring 1.5 x 0.1 x 0.1 cm. Totally submitted in cassette F1. G. Prostate, Right, Lateral Base, Biopsy Received in formalin labeled right lateral base is one herron, cylindrical fragment of soft tissue measuring 1.8 x 0.1 x 0.1 cm. Totally submitted in cassette G1. H. Prostate, Right, Lateral Belcamp, Biopsy Received in formalin labeled right lateral apex is one herron, cylindrical fragment of soft tissue measuring 1.6 x 0.1 x 0.1 cm. Totally submitted in cassette H1. Gross examination performed at [facility], [address] [place] [address] CLIA#[id number] OLS May 26, 2024 1:05 PM . Performed By: #### S #### [facility][1] [facility] CLIA [id number] [address] [place] [address] [place] UA DIP, URINE (POC)on 2023 BILIRUBIN UA (POCT) Negative Negative [facility] CLARITY UA (POCT) Clear [facility] COLOR UA (POCT) Yellow [facility] GLUCOSE UA (POCT) Negative Negative mg/dL [facility] Hemoglobin Ql (U) Negative Negative [facility] KETONE UA (POCT) Negative Negative mg/dL [facility] LEUKOCYTES UA (POCT) Negative Negative [facility] NITRITE UA (POCT) Negative Negative [facility] PH UA (POCT) 7.0 4.5 - 8.0 [facility] Protein Ql (U) Negative Negative mg/dL [facility] SPECIFIC GRAVITY UA (POCT) 1.015 1.005 - 1.030 [facility] UROBILINOGEN UA (POCT) 0.2 Normal E.U./dL [facility] Location:[facility], [address] [place] [address], [address] [place] [address] POINT OF CARE [facility] CNPNon 05-13-2024 CNPN Telephone (UROLIN) SONYA SOFIA ([id number]) 1960 M Date Time Provider Department 05/13/24 WALI COLEMAN During your visit today, we recorded the following information about you: Wali Coleman PA-C 05/13/2024 9:31 AM Signed Please notify patient that his IsoPSA came back at 8.6% % and a PSA of 4.48 The IsoPSA being greater than 6.1% indicates there is a risk of high grade prostate cancer in the next 10 years So a prostate biopsy is recommended. Orders have been placed for biopsy if he wished to have biopsy I will arrange procedure with staff Urologist If he wishes to discuss results I am happy to discuss at visit. Wali Coleman, [facility] [place], Morena Abreu LPN 05/13/2024 4:24 PM Signed Called patient. Verified name and date of . Patient informed of results/orders and verbalizes understanding. Patient would like to proceed with biopsy. ROSCOE George Brandon, PA-C 05/17/2024 10:02 PM Signed Patient with elevated PSA and abnormal IsoPSA of 8.6% Needs a prostate biopsy, orders placed No current Blood thinner Patient # Val Tapia 05/18/2024 8:22 AM Signed Left pt vm re: schedule prostate bx for elev PSA. Ref by Siomara Coleman. Albertina Castro LPN 05/18/2024 8:23 AM Signed Patient called in to schedule biopsy. Transferred to PSR to assist patient. ROSCOE Krause Michael Gene Jr., MD 05/18/2024 8:51 AM Signed Ok to schedule Nikolas Ponce 05/18/2024 2:32 PM Signed PT scheduled with Ana for 05/25 Pt aware of prep before procedure Pt states he takes no medication for blood thinners or related products. Nikolas Ponce Allergies As of Date: 05/13/2024 (No Known Allergies) Date Reviewed: 05/10/2024 Reviewed by: Morena Hernandez LPN - Fully Assessed Reason for Visit: Results [95] Primary Visit Diagnosis:Elevated prostate specific antigen (PSA) [R97.20] Order(s):PROSTATE BIOPSY ALANNA [[id number]] Order #: [id number] Prescriptions as of 05/18/2024 - sildenafil (VIAGRA) 50 mg tablet Take one tablet by mouth 60 minutes prior to sexual activity. Not to exceed one tablet per 24 hours. For erectile dysfunction Problem List As Of Date 05/13/2024 Noted Resolved FX LOWER FOREARM NOS-CLOSE [S52.90XA] 10/10/2005 10/16/2005 Other facial bones, closed fracture (HCC) [S02.*10/10/2005 02/15/2014 COLLES' FRACTURE-CLOSED [S52.539A] 10/16/2005 11/28/2005 FX TRIQUETRAL, WRIST-CLOSE [S62.113A] 10/16/2005 11/28/2005 DYSMETABOLIC SYNDROME X [E88.810] 10/01/2006 Hyperlipidemia, mixed [E78.2] 04/23/2010 Tinea pedis [B35.3] 06/28/2012 05/19/2016 Encounter Status:Closed by ALBERTINA BROWN on 05/18/24 Normal [facility] CNOVon 05-10-2024 CNOV Office Visit (UROLWS ) SONYA SOFIA ([id number]) 1960 M Date Time Provider Department 05/10/24 9:00 AM WALI COLEMAN During your visit today, we recorded the following information about you: Temperature Pulse Respiration Blood pressure 97.8 degrees 74/minute 14/minute 154/84 Weight Height 84.8 kg 1.66 m Morena Hernandez LPN 05/10/2024 1:21 PM Signed Verified name and date of . CC Post Void Residual HPI: Sonya Sofia is a 63 year old male. The patient is here now for an appointment with FLOWER Taylor MT, PA-COV. Procedure: Explained procedure to patient and verbalizes understanding. Performed a PVR. Patient urinated and instructed to empty bladder as much as possible just prior to having PVR done using bladder ultrasound scanner. Results of scan: 21 mL The patient tolerated the procedure well. Plan: Appointment with Wali Chiu PA-C 05/10/2024 1:21 PM Signed [facility] NEW PATIENT CLINIC NOTE SERVICE DATE: May 10, 2024 NAME: Sonya Sofia CHIEF COMPLAINT: Elevated PSA HISTORY OF PRESENT ILLNESS: Sonya Sofia is a 63 year old male an new patient here for Elevated PSA The patient reports having a result from recent PSA of 4.82, and only previous PSA in 03/2010 That was 0.95. since there is not having enough data points to help guide decisions I recommend He have a IsoPSA to see if prostate biopsy is indicated , if isoPSA is > 6.1% then recommend biopsy If not will continue to get PSA at 6 month intervals Latest Ref Rng 04/23/2010 04/18/2024 04/25/2024 PSA <2.60 ng/mL 0.95 4.82 (H) PSA, Percent Free % 18 PSA Screening <2.60 ng/mL 5.00 (H) LUTS: None Other symptoms: ED with Viagra 50 mg LABS: PSA (ng/mL) Date Value 04/25/2024 4.82 04/23/2010 0.95 PSA Screening (ng/mL) Date Value 04/18/2024 5.00 MEDICATIONS: nystatin (MYCOSTATIN) powder Apply 1 application to affected area three times a day for 14 days. sildenafil (VIAGRA) 50 mg tablet Take one tablet by mouth 60 minutes prior to sexual activity. Not to exceed one tablet per 24 hours. For erectile dysfunction PAST MEDICAL HISTORY: PAST MEDICAL HISTORY Diagnosis Date Elevated prostate specific antigen (PSA) 04/29/2024 Hyperlipidemia LDL goal < 130 04/23/2010 Tinea pedis 06/28/2012 PAST SURGICAL HISTORY: PAST SURGICAL HISTORY Procedure Laterality Date COLONOSCOPY FLX DX W/COLLJ SPEC WHEN PFRMD 10/03/11 repeat 10 years PAST SURGICAL HISTORY OF bilateral foot surgery PAST SURGICAL HISTORY OF Right 09/08/2019 Shoulder tendon repair FAMILY HISTORY: FAMILY HISTORY Problem Relation Age of Onset Heart Mother CABG, VALVE REPLACEMENT Ischemic Heart Disease Mother Hypertension Father CABG Ischemic Heart Disease Father Ischemic Heart Disease Maternal Grandfather Heart Attack Maternal Grandfather Heart Attack Paternal Grandmother SOCIAL HISTORY: Social Connections: Socially Integrated (04/25/2024) Social Connection and Isolation Panel [NHANES] Frequency of Communication with Friends and Family: More than three times a week Frequency of Social Gatherings with Friends and Family: More than three times a week Attends Islam Services: More than 4 times per year Active Member of Clubs or Organizations: Yes Attends Club or Organization Meetings: More than 4 times per year Marital Status: REVIEW OF SYSTEMS: GENERAL: No fever, chills, weight loss, or fatigue. ENMT: Negative CARDIOVASCULAR:NO CHEST PAIN, PALPITATIONS, ANKLE EDEMA RESPIRATORY: No chronic cough, wheezing, dyspnea, hemoptysis. GENITOURINARY: SEE HPI MUSCULOSKELETAL:NO CHRONIC BACK PAIN, ARTHRITIS, CHRONIC NECK PAIN SKIN: NO VARICOSE VEINS, RASH, ABNORMAL ITCHING HEME/LYMPH/IMMUNE:Negative for prolonged bleeding, bruising easily or swollen nodes NEUROLOGICAL: NO HEADACHES, NUMBNESS, SEIZURES, STROKE DIABETES: No All other systems reviewed and are negative PHYSICAL EXAMINATION: Blood pressure 154/84, pulse 74, temperature 36.6 ?C (97.8 ?F), temperature source Temporal, resp. rate 14, height 166 cm (5' 5.35), weight 84.8 kg (187 lb), SpO2 97%. GENERAL: WNL nutrition, no deformities, healthy appearing NEURO: Awake, alert and oriented x 3 and Normal gait PSYCH: No signs of depression, anxiety, or agitation ENMT (Ear, Nose, Mouth, Throat): No masses, adenopathy, icterus. Thyroid nonpalpable RESP: NL effort, no retractions or purse-lip breathing. CV: No extremity swelling, varices, edema, pallor, erythema GASTROINTESTINAL: Soft, nontender, nondistended, no masses. HERNIAS: None SKIN: No rash, lesions No palpable lymphadenopathy MUSCULOSKELETAL: Extremities normal. No deformities, edema, clubbing or skin discoloration. PROBLEM LIST REVIEW: Yes LABS: (more content not included)... Normal [facility] ISOPSA ASSAY FOR UROLOGY USE ONLYon 05-10-2024 INTERPRETATION View results in Scan fidencio Documents link when available. Normal [facility] Comment on above: Order Comment: Speci men Type: BLOOD SPECIMENOrdering Facility: [facility] Address: [address] [place] [address] Performed By: #### I SOPSA ####[facility]CLIA [id number] [address] [address] ISOPSA INDEX 8.6 Normal [facility] Comment on above: Order Comment: Speci men Type: BLOOD SPECIMENOrdering Facility: [facility] Address: [address] [place] [address] Performed By: #### I SOPSA ####[facility]CLIA [id number] [address] [address] TPSA RESULTS 4.480 Normal [facility] Comment on above: Order Comment: Speci men Type: BLOOD SPECIMENOrdering Facility: [facility] Address: [address] [place] [address] Performed By: #### I SOPSA ####[facility]CLIA [id number] [address] [address] UA DIP, URINE (POC)on 2023 BILIRUBIN UA (POCT) Negative Negative [facility] CLARITY UA (POCT) Clear [facility] COLOR UA (POCT) Yellow [facility] GLUCOSE UA (POCT) Negative Negative mg/dL [facility] Hemoglobin Ql (U) Negative Negative [facility] Interpretation and review of laboratory results Abnormal [facility] KETONE UA (POCT) Negative Negative mg/dL [facility] LEUKOCYTES UA (POCT) Negative Negative [facility] NITRITE UA (POCT) Negative Negative [facility] PH UA (POCT) 6.0 4.5 - 8.0 [facility] Protein Ql (U) Trace Abnormal Negative mg/dL [facility] SPECIFIC GRAVITY UA (POCT) 1.020 1.005 - 1.030 [facility] UROBILINOGEN UA (POCT) 0.2 Normal E.U./dL [facility] Location:[facility], [address], [place], [place], [id number] [place] [address] [facility] 04-[facility]-2024 ENOCH Telephone (LILY) SONYA SOFIA ([id number]) 1960 M Date Time Provider Department 04/29/24 PINKY WILSON During your visit today, we recorded the following information about you: Pinky Wilson APRN.CNP 04/29/2024 8:44 AM Signed Can you please call the patient and let him know that I reviewed his free PSA results. PSA was elevated at 4.82, free PSA percentage was 18%. Free PSA percentages less than 11% we get concerned with possible malignancy. We can continue to monitor this through labs or he may choose to have a consult with urology. Please let me know what he prefers. NEELAM Guerrero Barbara, LPN 04/29/2024 9:15 AM Signed TC to ptTrinh SILVA to call office, ask for triage nurse to get results. ROSCOE Phelan Stephanie, RN 04/29/2024 9:34 AM Signed Patient notified of results and provider's instructions. Patient verbalizes understanding. Patient would like a consult with urology. SONY Brady Ashley, APRN.JALIL 04/29/2024 12:10 PM Signed Urology consult has been placed, he may schedule any time. Thank you. Pinky Wilson APRN.Alex Fountain LPN 04/29/2024 12:45 PM Signed TC to pt. Left a detailed message on a secure line with updates. Alex Law LPN Allergies As of Date: 04/29/2024 (No Known Allergies) Date Reviewed: 04/25/2024 Reviewed by: Alex Law LPN - Fully Assessed Reason for Visit: Results [95] Cmt: Free PSA Primary Visit Diagnosis:Elevated PSA [R97.20] Order(s):CONSULT TO UROLOGY [9041] Order #: [id number]: 1 FUTURE Prescriptions as of 04/29/2024 - nystatin (MYCOSTATIN) powder Apply 1 application to affected area three times a day for 14 days. - ketoconazole (NIZORAL) 2 % cream Apply to affected area two times a day for 14 days. - sildenafil (VIAGRA) 50 mg tablet Take one tablet by mouth 60 minutes prior to sexual activity. Not to exceed one tablet per 24 hours. For erectile dysfunction Problem List As Of Date 04/29/2024 Noted Resolved FX LOWER FOREARM NOS-CLOSE [S52.90XA] 10/10/2005 10/16/2005 Other facial bones, closed fracture (HCC) [S02.*10/10/2005 02/15/2014 COLLES' FRACTURE-CLOSED [S52.539A] 10/16/2005 11/28/2005 FX TRIQUETRAL, WRIST-CLOSE [S62.113A] 10/16/2005 11/28/2005 DYSMETABOLIC SYNDROME X [E88.810] 10/01/2006 Hyperlipidemia, mixed [E78.2] 04/23/2010 Tinea pedis [B35.3] 06/28/2012 05/19/2016 Encounter Status:Closed by ALEX LAW on 04/29/24 Normal [facility] CNOVon 04-25-2024 CNOV Office Visit (FAMPWS ) BISMARKSONYA ([id number]) 1960 M Date Time Provider Department 04/25/24 8:00 AM PINKY WILSON FAMPWS During your visit today, we recorded the following information about you: Pulse Respiration Blood pressure Weight 76/minute 16/minute 148/80 83.9 kg Height 1.63 m Pinky Wilson APRN.CHIEF DEPUTY COURT CLERK 04/25/2024 9:01 AM Signed Sonya Brand Bismark is a 63 year old male here for a Medicare wellness visit. Medicare Health Risk Assessment General Health Excellent Exercise: Minutes/Day 30 min Exercise: Days/Week 6 days Alcohol: Daily Use 4 or more times a week Alcohol: Drinks/Day 1 or 2 Alcohol: 6 or more drinks Never Feel off balance Intermittent with position changes. Concerns: Teeth/Dentures None Concerns: Sexual function None Troubled by feelings No Frequency: Eating healthy diet Yes, daily ADLs requiring help No Safety precautions in home/vehicle Yes Smoke, vape, chews tobacco No Difficulty hearing No Difficulty seeing No Current Providers Specialists: I have reviewed specialist-related care of the patient in the medical record. Medical/Family history review Reviewed and updated problem list, medical/surgical/family/soci al history, medications, and allergies. Opioid use review Opioid Medications (last 90 days) No data to display Anxiety/Depression screening PHQ-9 Score: 1 (Minimal Depression) ADIS-7 Score: 0. Recommendation: no further intervention at this time Cognitive screening Mini Cog Score: 4 Cognitive screening reviewed and No further action needed (score 3-5). Functional Observation Was the patient's Timed Up AND Go test unsteady or >= 12 seconds? No Advance Care Planning Surrogate decision maker and/or advance care plan documented Measurements BP 157/93 Pulse 76 Resp 16 Ht 163 cm (5' 4.17) Wt 83.9 kg (184 lb 15.5 oz) SpO2 96% BMI 31.58 kg/m? Vision Screening: Follows with optometry/ophthalmology Assessment/Plan Medicare annual wellness visit, initial (Z00.00) - Counseled on healthy diet and regular exercise - Fall avoidance information provided - Personalized prevention plan provided This is a 63 year old male who presents today with: Patient presents with: Medicare Wellness Exam HISTORY OF PRESENT ILLNESS: Sonya Sofia is a 63 year old male. Patient presents with: Medicare Wellness Exam Here in the office for extensive exam. ED: Using Viagra 50 mg as needed. Following with urology. Right shoulder: Had surgery in the past, has noticed some decreased strength. Denies pain. Colonoscopy: Last colonoscopy September 2011, cologuard negative 2021. PSA: Last PSA March 2010, within normal limits. Denies any urinary symptoms at this time. Snoring: Sleep study order sent to [facility]. No CATALINA but snorning, testing normal. Athletes feet: bilateral feet, small toes, itchy. Has tried Lotrim creams and powders. Mild improvement and refers will get worsen. Has been trying to change his socks during the day. Has seen podiatry in the past. PAST MEDICAL HISTORY: PAST MEDICAL HISTORY Diagnosis Date Hyperlipidemia LDL goal < 130 04/23/2010 Tinea pedis 06/28/2012 PAST SURGICAL HISTORY Procedure Laterality Date COLONOSCOPY FLX DX W/COLLJ SPEC WHEN PFRMD 10/03/11 repeat 10 years PAST SURGICAL HISTORY OF bilateral foot surgery PAST SURGICAL HISTORY OF Right 09/08/2019 Shoulder tendon repair ALLERGIES Patient has no known allergies. MEDICATIONS Current Outpatient Medications Medication Sig sildenafil (VIAGRA) 50 mg tablet Take one tablet by mouth 60 minutes prior to sexual activity. Not to exceed one tablet per 24 hours. For erectile dysfunction No current facility-administered medications for this visit. FAMILY HISTORY Problem Relation Age of Onset Heart Mother CABG, VALVE REPLACEMENT Ischemic Heart Disease Mother Hypertension Father CABG Ischemic Heart Disease Father Ischemic Heart Disease Maternal Grandfather Heart Attack Maternal Grandfather Heart Attack Paternal Grandmother Social History Tobacco Use Smoking status: Never Smokeless tobacco: Never Vaping Use Vaping status: Never Used Substance Use Topics Alcohol use: Yes Comment: occasional Drug use: No REVIEW OF SYSTEMS GENERAL: No weight loss, malaise or fevers/chills HEENT: Negative for frequent or significant headaches, No changes in hearing or vision. NECK: Negative for lumps, goiter, pain and significant neck swelling RESPIRATORY: Negative for cough, hemoptysis, wheezing, dyspnea or shortness of breath CARDIOVASCULAR: Negative for chest pain, leg swelling, orthopnea, or palpitations GI: No nausea, vomiting, or diarrhea/constipation. No hematochezia/melena. No heartburn or reflux symptoms. : No history of dysuria, frequency or incontinence MUSCULOSKELETAL: + Decreased strength right shoulder SKIN: + Itc (more content not included)... Normal [facility] Free PSA [Mass/Vol]on 2023 Free PSA/Total PSA [Mass fraction] 18 % Normal [facility] Comment on above: Order Comment: Speci men Type: BLOOD SPECIMENOrdering Facility: [facility] Address: [address] [place] [address] Result Comment: Tota l and free PSA test methodology used is the Electrochemiluminescence Immunoassay by [employer]. Total or free PSA values by differing methodologies cannot be interchanged. The below table lists the probability of finding prostate cancer upon needle biopsy, for men 50 years or older and total PSA concentrations from 4.0-10.0 ng/mL. Results should be interpreted within the broader clinical context. Free PSA(%) 50-59 years 60-69 years >69 years <11 49.2% 57.5% 64.5% 11-18 26.9% 33.9% 40.8% 19-25 18.3% 23.9% 29.7% >25 9.1% 12.2% 15.8% Performed By: #### 1 [id number] ####[facility] LABCLIA [id number] [place] [address] [place] Prostate specific Ag [Mass/Vol] 4.82 ng/mL High <2.60 [facility] Comment on above: Order Comment: Speci men Type: BLOOD SPECIMENOrdering Facility: [facility] Address: [address] [place] [address] Result Comment: Tota l PSA test methodology used is the Electrochemiluminescence Immunoassay by [employer]. Total PSA values by differing methodologies cannot be interchanged. For an individual patient, the significance of a PSA level should be interpreted in a broad clinical context, including age, race, family history, digital rectal exam, prostate size, results of prior testing (prostate biopsy, free PSA, PCA3), and use of 5-alpha reductase inhibitors. Considering the high incidence of asymptomatic cancer in the general population that may not pose an ultimate risk to a patient, the decision to recommend urological evaluation or prostate biopsy should be individualized after consideration of all these factors. REFERENCE: Sri Tsai M.D., M.P.H., Marko Hemphill M.D., Ph.D., Ralph Tobar M.D., Morena Brothers, M.P.H., Salome Franks, ScEusebio. Effect of Verification Bias on Screening for Prostate Cancer by Measurement of Prostatic Specific Antigen. N Engl J Med 2003,349:335-42. Performed By: #### 1 0886-0 ####[facility] LABIA [id number] [place] [address] [place] Comprehensive metabolic 2000 panelon 04-18-2024 Albumin [Mass/Vol] 4.1 g/dL Normal 3.9-4.9 [facility] Comment on above: Order Comment: Speci men Type: BLOOD SPECIMENOrdering Facility: [facility] Address: [address] [place] [address] Performed By: #### 2 4331-1, 16143-7 ####[facility] LABIA [id number] [place] [address] [place] ALP [Catalytic activity/Vol] 60 U/L Normal 38-113 [facility] Comment on above: Order Comment: Speci men Type: BLOOD SPECIMENOrdering Facility: [facility] Address: [address] [place] [address] Performed By: #### 2 4331-1, 29917-2 ####[facility] LABCLIA [id number] [place] [address] [place] ALT [Catalytic activity/Vol] 17 U/L Normal 10-54 [facility] Comment on above: Order Comment: Speci men Type: BLOOD SPECIMENOrdering Facility: [facility] Address: [address] [place], [place] [address] Performed By: #### 2 4331-1, 45052-4 ####[facility] LABCLIA [id number] [place] [id number] [place] Anion gap [Moles/Vol] 11 mmol/L Normal 8-15 [facility] Comment on above: Order Comment: Speci men Type: BLOOD SPECIMENOrdering Facility: [facility] Address: [address] [place] [address] Performed By: #### 2 4331-1, 98345-9 ####[facility] LABCLIA [id number] [place] [address] [place] AST [Catalytic activity/Vol] 20 U/L Normal 14-40 [facility] Comment on above: Order Comment: Speci men Type: BLOOD SPECIMENOrdering Facility: [facility] Address: [address] [place] [address] Performed By: #### 2 4331-1, 52992-8 ####[facility] LABCLIA [id number] [place] [address] [place] Bilirubin [Mass/Vol] 0.4 mg/dL Normal 0.2-1.3 [facility] Comment on above: Order Comment: Speci men Type: BLOOD SPECIMENOrdering Facility: [facility] Address: [address] [place], [place] [address] Performed By: #### 2 4331-1, 72498-7 ####[facility] LABCLIA [id number] [place] [address] [place] Calcium [Mass/Vol] 9.1 mg/dL Normal 8.5-10.2 [facility] Comment on above: Order Comment: Speci men Type: BLOOD SPECIMENOrdering Facility: [facility] Address: [address] [place], [place] [address] Performed By: #### 2 4331-1, 58362-6 ####[facility] LABCLIA [id number] [place] [id number] [place] Chloride [Moles/Vol] 102 mmol/L Normal 98-107 [facility] Comment on above: Order Comment: Speci men Type: BLOOD SPECIMENOrdering Facility: [facility] Address: [address] [place] [address] Performed By: #### 2 4331-1, ####[facility] LABIA [id number] [place] [address] [place] CO2 [Moles/Vol] 23 mmol/L Normal 22-30 [facility] Comment on above: Order Comment: Speci men Type: BLOOD SPECIMENOrdering Facility: [facility] Address: [address] [place] [address] Performed By: #### 2 4331-, 57134-1 ####[facility] LABIA [id number] [place] [address] [place] Creatinine [Mass/Vol] 1.11 mg/dL Normal 0.73-1.22 [facility] Comment on above: Order Comment: Speci men Type: BLOOD SPECIMENOrdering Facility: [facility] Address: [address] [place] [address] Performed By: #### 2 4331-, 37245-7 ####[facility] LABIA [id number] [place] [address] [place] Creatinine and Glomerular filtration rate.predicted panel (S/P/Bld) 74 mL/min/1.73m??? Normal >=60 [facility] Comment on above: Order Comment: Speci men Type: BLOOD SPECIMENOrdering Facility: [facility] Address: [address] [place] [address] Result Comment: Pamela mated Glomerular Filtration Rate (eGFR) is calculated using the 2020 CKD-EPI creatinine equation. This equation utilizes serum creatinine, sex, and age as parameters. The creatinine assay has traceable calibration to isotope dilution-mass spectrometry. Refer to KDIGO guidelines for clinical interpretation. In patients with unstable renal function, e.g. those with acute kidney injury, the eGFR may not accurately reflect actual GFR. Performed By: #### 2 433-, ####[facility] LABCLIA [id number] [address] [address] [place] Glucose [Mass/Vol] 95 mg/dL Normal 74-99 [facility] Comment on above: Order Comment: Specmargaret men Type: BLOOD SPECIMENOrdering Facility: [facility] Address: [address] [place] [address] Result Comment: The [place] Diabetes Association (ADA) provides guidance for cutoff values for fasting glucose and random glucose. The ADA defines fasting as no caloric intake for at least 8 hours. Fasting plasma glucose results between 100 to 125 mg/dL indicate increased risk for diabetes (prediabetes). Fasting plasma glucose results greater than or equal to 126 mg/dL meet the criteria for diagnosis of diabetes. In the absence of unequivocal hyperglycemia, results should be confirmed by repeat testing. In a patient with classic symptoms of hyperglycemia or hyperglycemic crisis, random plasma glucose results greater than or equal to 200 mg/dL meet the criteria for diagnosis of diabetes. Reference: Standards of Medical Care in Diabetes 2016, [place] Diabetes Association. Diabetes Care. 2016.39(Suppl 1). Performed By: #### 2 433-, ####[facility] LABCLIA [id number] [address] [address] [place] Potassium [Moles/Vol] 4.3 mmol/L Normal 3.7-5.1 [facility] Comment on above: Order Comment: Shelly men Type: BLOOD SPECIMENOrdering Facility: [facility] Address: [address] [place] [address] Performed By: #### 2 433-, ####[facility] LABCLIA [id number] [address] [address] [place] Protein [Mass/Vol] 6.9 g/dL Normal 6.3-8.0 [facility] Comment on above: Order Comment: Speci men Type: BLOOD SPECIMENOrdering Facility: [facility] Address: [address] [place] [address] Performed By: #### 2 4331-1, ####[facility] LABCLIA [id number] [address] [address] [place] Sodium [Moles/Vol] 136 mmol/L Normal 136-144 [facility] Comment on above: Order Comment: Speci men Type: BLOOD SPECIMENOrdering Facility: [facility] Address: [address] [place] [address] Performed By: #### 2 4331-1, ####[facility] LABIA [id number] [place] [address] [place] Urea nitrogen [Mass/Vol] 18 mg/dL Normal 9-24 [facility] Comment on above: Order Comment: Speci men Type: BLOOD SPECIMENOrdering Facility: [facility] Address: [address] [place] [address] Performed By: #### 2 4331-1, ####[facility] LABIA [id number] [place] [address] [place] HbA1c (Bld)on 04-18-2024 Average glucose Estimated from glycated hemoglobin (Bld) [Mass/Vol] 114 mg/dL Normal [facility] Comment on above: Order Comment: Speci men Type: BLOOD SPECIMENOrdering Facility: [facility] Address: [address] [place] [address] Result Comment: eAG: (Estimated average glucose) is a calculated value from HgbA1c and is education courses sales representative of the average blood glucose level in the last 2-3 month period. Performed By: #### 5 5454-3 ####[facility] LABCLIA [id number] [place] [address] [place] HbA1c (Bld) [Mass fraction] 5.6 % Normal 4.3-5.6 [facility] Comment on above: Order Comment: Stephanmargaret maria Type: BLOOD SPECIMENOrdering Facility: [facility] Address: [address] [place] [address] Result Comment: [place] Diabetes Association guidelines indicate that patients with HgbA1c in the range 5.7-6.4% are at increased risk for development of diabetes, and intervention by lifestyle modification may be beneficial. HgbA1c greater or equal to 6.5% is considered diagnostic of diabetes. Performed By: #### 5 5454-3 ####[facility] LABCLIA [id number] [address] [address] [place] Lipid 1996 panelon 4 Cholesterol [Mass/Vol] 195 mg/dL Normal <200 [facility] Comment on above: Order Comment: Shelly crow Type: BLOOD SPECIMENOrdering Facility: [facility] Address: [address] [place] [address] Result Comment: <200 mg/dL, Desirable 200-239 mg/dL, Borderline high >239 mg/dL, High Performed By: #### 2 4331-1, 51048-1 ####[facility] LABCLIA [id number] [address] [place] Cholesterol in HDL [Mass/Vol] 37 mg/dL Low >39 [facility] Comment on above: Order Comment: Shelly crow Type: BLOOD SPECIMENOrdering Facility: [facility] Address: [address] [place] [address] Result Comment: 40-5 9 mg/dL, Acceptable >59 mg/dL, High: Negative risk factor for coronary heart disease <40 mg/dL, Low: Positive risk factor for coronary heart disease Performed By: #### 2 4331-1, 49355-0 ####[facility] LABCLIA [id number] [address] [place] Cholesterol in LDL [Mass/Vol] 141 mg/dL High <100 [facility] Comment on above: Order Comment: Stephani men Type: BLOOD SPECIMENOrdering Facility: [facility] Address: [address] [place] [address] Result Comment: <100 mg/dL, Optimal 100-129 mg/dL, Near optimal/above optimal 130-159 mg/dL, Borderline high 160-189 mg/dL, High >189 mg/dL, Very high Secondary prevention optimal LDL Cholesterol levels are recommended to be < 70 mg/dL Performed By: #### 2 4331-1, 34125-4 ####[facility] LABCLIA [id number] [place] [address] [place] Cholesterol in LDL/Cholesterol in HDL [Mass ratio] 3.81 {ratio} High <2.54 [facility] Comment on above: Order Comment: Speci men Type: BLOOD SPECIMENOrdering Facility: [facility] Address: [address] [place] [address] Result Comment: Refe rence: 1. National Cholesterol Education Program ATP III Guideline At-A-Glance Quick Desk Reference: National Heart, Lung, and Blood [place]. National Institutes of Health. 2001: NIH Publication No. 01-3305. 2. An International Atherosclerosis Society position paper: global recommendations for the management of dyslipidemia: executive summary, Atherosclerosis. 2014: 232(2):410-413. Performed By: #### 2 4331-, ####[facility] LABCLIA [id number] [place] [address] [place] Cholesterol in VLDL [Mass/Vol] 17 mg/dL Normal <30 [facility] Comment on above: Order Comment: Stephani men Type: BLOOD SPECIMENOrdering Facility: [facility] Address: [address] [place] [address] Performed By: #### 2 4331-1, ####[facility] LABCLIA [id number] [place] [address] [place] Cholesterol non HDL [Mass/Vol] 158 mg/dL High <130 [facility] Comment on above: Order Comment: Speci men Type: BLOOD SPECIMENOrdering Facility: [facility] Address: [address] [place] [address] Result Comment: <130 mg/dL, Optimal 130-159 mg/dL, Near optimal/above optimal 160-189 mg/dL, Borderline high 190-219 mg/dL, High >219 mg/dL, Very high Secondary prevention optimal non HDL Cholesterol levels are recommended to be <100 mg/dL Performed By: #### 2 4331-1, 29626-3 ####[facility] LABCLIA [id number] [place] [address] [place] Cholesterol.total/ Cholesterol in HDL [Mass ratio] 5.27 {ratio} High <5.10 [facility] Comment on above: Order Comment: Speci men Type: BLOOD SPECIMENOrdering Facility: [facility] Address: [address] [place] [address] Performed By: #### 2 4331-1, 66590-3 ####[facility] LABCLIA [id number] [place] [address] [place] FASTING TIME 12 hrs Normal [facility] Comment on above: Order Comment: Speci men Type: BLOOD SPECIMENOrdering Facility: [facility] Address: [address] [place] [address] Performed By: #### 2 4331-1, ####[facility] LABCLIA [id number] [place] [address] [place] Triglyceride [Mass/Vol] 84 mg/dL Normal <150 [facility] Comment on above: Order Comment: Speci men Type: BLOOD SPECIMENOrdering Facility: [facility] Address: [address] [place] [address] Result Comment: <150 mg/dL, Normal 150-199 mg/dL, Borderline high 200-499 mg/dL, High >499 mg/dL, Very high Performed By: #### 2 4331-1, ####[facility] LABCLIA [id number] [place] [id number] [place] PSA/PROSTATE SPECIFIC ANTIGE N SCREENINGon 04-18-2024 Prostate specific Ag [Mass/Vol] 5.00 ng/mL High <2.60 [facility] Comment on above: Order Comment: Speci men Type: BLOOD SPECIMENOrdering Facility: [facility] Address: [address] [place] [address] Result Comment: Pedro amor PSA test methodology used is the Electrochemiluminescence Immunoassay by [employer]. Total PSA values by differing methodologies cannot be interchanged. For an individual patient, the significance of a PSA level should be interpreted in a broad clinical context, including age, race, family history, digital rectal exam, prostate size, results of prior testing (prostate biopsy, free PSA, PCA3), and use of 5-alpha reductase inhibitors. Considering the high incidence of asymptomatic cancer in the general population that may not pose an ultimate risk to a patient, the decision to recommend urological evaluation or prostate biopsy should be individualized after consideration of all these factors. REFERENCE: Sri Tsai M.D., M.P.H., Marko Hemphill M.D., Ph.D., Ralph Tobar M.D., Morena Brothers, M.P.H., Salome Franks ScEusebio. Effect of Verification Bias on Screening for Prostate Cancer by Measurement of Prostatic Specific Antigen. N Engl J Med 2003,349:335-42. Performed By: #### P SAS1 ####[facility] LABCLIA [id number] [place] [address] [place] Vital Signs Date Time Vital Sign Value Performing Clinician Facility 03-26-2025 08:14-0400 Body mass index (BMI) [Ratio] 30.6 kg/m2 Ximena Swank STRATEGY ANALYST.CHIEF DEPUTY COURT CLERK Work Phone: [facility] 03-26-2025 08:14-0400 Body temperature 97 [degF] Ximena Swank STRATEGY ANALYST.CHIEF DEPUTY COURT CLERK Work Phone: [facility] 03-26-2025 08:14-0400 Body weight 86 kg Ximena Swank STRATEGY ANALYST.CHIEF DEPUTY COURT CLERK Work Phone: [facility] 03-26-2025 08:14-0400 Diastolic blood pressure 94 mm[Hg] Ximena Swank STRATEGY ANALYST.CHIEF DEPUTY COURT CLERK Work Phone: [facility] 03-26-2025 08:14-0400 Heart rate 70 /min Ximena Swank STRATEGY ANALYST.CHIEF DEPUTY COURT CLERK Work Phone: [facility] 03-26-2025 08:14-0400 Respiratory rate 20 /min Ximena Swank STRATEGY ANALYST.CHIEF DEPUTY COURT CLERK Work Phone: [facility] 03-26-2025 08:14-0400 SaO2% (BldA) [Mass fraction] 98 % Ximena Swank STRATEGY ANALYST.CHIEF DEPUTY COURT CLERK Work Phone: [facility] 03-26-2025 08:14-0400 Systolic blood pressure 163 mm[Hg] Ximena Swank STRATEGY ANALYST.CHIEF DEPUTY COURT CLERK Work Phone: [facility] 11-08-2024 11:15-0400 Diastolic blood pressure 96 mm[Hg] Heriberto Perez MD Work Phone: [facility] 11-08-2024 11:15-0400 Heart rate 64 /min Heriberto Perez MD Work Phone: [facility] 11-08-2024 11:15-0400 SaO2% (BldA) [Mass fraction] 96 % Heriberto Perez MD Work Phone: [facility] 11-08-2024 11:15-0400 Systolic blood pressure 161 mm[Hg] Heriberto Perez MD Work Phone: [facility] 06-03-2024 08:45-0500 Body mass index (BMI) [Ratio] 30.81 kg/m2 Marcus Haro APRN.CHIEF DEPUTY COURT CLERK Work Phone: [facility] 06-03-2024 08:45-0500 Body temperature 98.4 [degF] Marcus Haro APRN.CHIEF DEPUTY COURT CLERK Work Phone: [facility] 06-03-2024 08:45-0500 Body weight 86.6 kg Marcus Haro APRN.CHIEF DEPUTY COURT CLERK Work Phone: [facility] 06-03-2024 08:45-0500 Diastolic blood pressure 79 mm[Hg] Marcus Pendlebury STRATEGY ANALYST.CHIEF DEPUTY COURT CLERK Work Phone: [facility] 06-03-2024 08:45-0500 Heart rate 70 /min Marcus Riverbury STRATEGY ANALYST.CHIEF DEPUTY COURT CLERK Work Phone: [facility] 06-03-2024 08:45-0500 Respiratory rate 18 /min Marcusmeka Haro STRATEGY ANALYST.CHIEF DEPUTY COURT CLERK Work Phone: [facility] 06-03-2024 08:45-0500 SaO2% (BldA) [Mass fraction] 98 % Marcus Haro STRATEGY ANALYST.CHIEF DEPUTY COURT CLERK Work Phone: [facility] 06-03-2024 08:45-0500 Systolic blood pressure 162 mm[Hg] Marcus Riverbury STRATEGY ANALYST.CHIEF DEPUTY COURT CLERK Work Phone: [facility] 05-25-2024 08:56-0400 Body height 167.6 cm Heriberto Perez MD Work Phone: [facility] 05-25-2024 08:56-0400 Diastolic blood pressure 84 mm[Hg] Heriberto Perez MD Work Phone: [facility] 05-25-2024 08:56-0400 Heart rate 67 /min Heriberto Perez MD Work Phone: [facility] 05-25-2024 08:56-0400 SaO2% (BldA) [Mass fraction] 97 % Heriberto Perez MD Work Phone: [facility] 05-25-2024 08:56-0400 Systolic blood pressure 149 mm[Hg] Heriberto Perez MD Work Phone: [facility] 05-10-2024 08:58-0400 Body height 166 cm Wali Coleman PA-C Work Phone: [facility] 05-10-2024 08:58-0400 Body mass index (BMI) [Ratio] 30.78 kg/m2 Wali Coleman PA-C Work Phone: [facility] 05-10-2024 08:58-0400 Body temperature 97.81 [degF] Wali Coleman PA-C Work Phone: [facility] 05-10-2024 08:58-0400 Body weight 84.82 kg Wali Coleman PA-C Work Phone: [facility] 05-10-2024 08:58-0400 Diastolic blood pressure 84 mm[Hg] Wali Coleman PA-C Work Phone: [facility] Comment on above: Wali notified of blood pressure- sherrie ent states he is to update his PCP on his blood pressure but has not done yet but states he will. 05-10-2024 08:58-0400 Heart rate 74 /min Wali Coleman PA-C Work Phone: [facility] 05-10-2024 08:58-0400 Respiratory rate 14 /min Wali Coleman PA-C Work Phone: [facility] 05-10-2024 08:58-0400 SaO2% (BldA) [Mass fraction] 97 % Wali Coleman PA-C Work Phone: [facility] 05-10-2024 08:58-0400 Systolic blood pressure 154 mm[Hg] Wali Coleman PA-C Work Phone: [facility] Comment on above: Wali notified of blood pressure- sherrie ent states he is to update his PCP on his blood pressure but has not done yet but states he will. 04-25-2024 08:47-0400 Diastolic blood pressure 80 mm[Hg] Pinky Wilson APRN.CHIEF DEPUTY COURT CLERK Work Phone: [facility] 04-25-2024 08:47-0400 Systolic blood pressure 148 mm[Hg] Pinky Wilson APRN.CHIEF DEPUTY COURT CLERK Work Phone: [facility] 04-25-2024 07:58-0400 Body height 163 cm Pinky Wilson APRN.CHIEF DEPUTY COURT CLERK Work Phone: [facility] 04-25-2024 07:58-0400 Body mass index (BMI) [Ratio] 31.58 kg/m2 Pinky Tannhof STRATEGY ANALYST.CHIEF DEPUTY COURT CLERK Work Phone: [facility] 04-25-2024 07:58-0400 Body weight 83.9 kg Pinky Tannhof STRATEGY ANALYST.CHIEF DEPUTY COURT CLERK Work Phone: [facility] 04-25-2024 07:58-0400 Heart rate 76 /min Pinky Tannhof STRATEGY ANALYST.CHIEF DEPUTY COURT CLERK Work Phone: [facility] 04-25-2024 07:58-0400 Respiratory rate 16 /min Pinky Tannhof STRATEGY ANALYST.CHIEF DEPUTY COURT CLERK Work Phone: [facility] 04-25-2024 07:58-0400 SaO2% (BldA) [Mass fraction] 96 % Pinky Tannhof STRATEGY ANALYST.CHIEF DEPUTY COURT CLERK Work Phone: [facility] 04-24-2022 07:40-0400 Body height 163 cm Pinky Tannhof STRATEGY ANALYST.CHIEF DEPUTY COURT CLERK Work Phone: [facility] 04-24-2022 07:40-0400 Body weight 83.92 kg Pinky Tannhof STRATEGY ANALYST.CHIEF DEPUTY COURT CLERK Work Phone: [facility] 04-24-2022 07:40-0400 Diastolic blood pressure 82 mm[Hg] Pinky Tannhof STRATEGY ANALYST.CHIEF DEPUTY COURT CLERK Work Phone: [facility] 04-24-2022 07:40-0400 Heart rate 67 /min Pinky Tannhof STRATEGY ANALYST.CHIEF DEPUTY COURT CLERK Work Phone: [facility] 04-24-2022 07:40-0400 Respiratory rate 16 /min Pinky Tannhof STRATEGY ANALYST.CHIEF DEPUTY COURT CLERK Work Phone: [facility] 04-24-2022 07:40-0400 SaO2% (BldA) [Mass fraction] 98 % Pinky Tannhof STRATEGY ANALYST.CHIEF DEPUTY COURT CLERK Work Phone: [facility] 04-24-2022 07:40-0400 Systolic blood pressure 142 mm[Hg] Pinky Tannhof STRATEGY ANALYST.CHIEF DEPUTY COURT CLERK Work Phone: [facility] Encounters Encounter Date Encounter Type Care Provider Facility Start: 04-05-2025 End: 04-05-2025 ambulatory GOLDEN MICHEL Facility:[facility] Start: 03-26-2025 End: 03-26-2025 Patient encounter procedure Ximena Deon FLYNN.CHIEF DEPUTY COURT CLERK Work Phone: [facility] Comment on above: Strain of neck muscl e, initial encounter (Primary Dx); Muscle spasm of back Start: 03-26-2025 End: 03-26-2025 ambulatory Daylin Patel RN NURSE FRONT OFFICE [employer]EL[employer] Comment on above: Neck Pain Start: 03-18-2025 End: 03-20-2025 Refill Idris John Paul FLYNN.CHIEF DEPUTY COURT CLERK Work Phone: [facility] [place] Comment on above: Refill Request Start: 01-10-2025 End: 01-10-2025 Patient encounter procedure Golden Michel MD Work Phone: [facility] Start: 01-10-2025 End: 01-10-2025 Telephone encounter Golden Michel MD Work Phone: [facility] Comment on above: Orders Start: 01-07-2025 End: 01-09-2025 Refill Golden Michel MD Work Phone: [facility] Comment on above: Refill Request Start: 11-22-2024 End: 11-22-2024 ambulatory Heriberto Perez MD Work Phone: [facility] Start: 11-22-2024 End: 11-22-2024 Patient encounter procedure Heriberto Perez MD Work Phone: [facility] Comment on above: Nov 28 2024 appointme nt for blood work Start: 11-09-2024 End: 01-09-2025 Follow-up encounter Heriberto Perez MD Work Phone: Urology Comment on above: Results Start: 11-08-2024 End: 11-08-2024 ambulatory HERIBERTO PEREZ Facility:[facility] Start: 11-08-2024 End: 11-08-2024 Patient encounter procedure Heriberto Perez MD Work Phone: Urology Comment on above: Elevated PSA (Primar y Dx) Start: 11-08-2024 End: 11-08-2024 ambulatory HERIBERTO NORRIS HELGAREBA Facility:[facility] Start: 07-21-2024 End: 07-21-2024 Refill Golden Michel MD Work Phone: [facility] Comment on above: Refill Request Start: 06-10-2024 End: 06-10-2024 ambulatory SONIDO MAURICIO Facility:[facility] Start: 06-10-2024 End: 06-10-2024 Patient encounter procedure Sonido Mauricio DO Work Phone: [facility] Comment on above: Pain of right hip Start: 06-06-2024 End: 06-06-2024 Subsequent hospital visit by physician Zach [facility] [place] Work Phone: Radiology Comment on above: Callus of foot [L84] Start: 06-06-2024 End: 06-06-2024 ambulatory GOLDEN MICHEL Facility:[facility] Start: 06-06-2024 End: 06-06-2024 Patient encounter procedure Shirley Taveras Work Phone: Podiatry Comment on above: Callus of foot (Prim stan Dx); Tinea pedis of both feet; Hammer toes of both feet Start: 06-03-2024 End: 06-03-2024 Subsequent hospital visit by physician [facility] [place] Work Phone: Radiology Comment on above: Pain of right hip [M 25.551] Start: 06-03-2024 End: 06-03-2024 ambulatory GOLDEN MICHEL Facility:[facility] Start: 06-03-2024 End: 06-03-2024 Office outpatient visit 15 minutes Marcus Haro APRN.CHIEF DEPUTY COURT CLERK Work Phone: [facility] Comment on above: Pain of right hip (P rimary Dx) Start: 06-02-2024 End: 06-02-2024 ambulatory Chapito Camargo RN NURSE FRONT OFFICE J[employer] DEVELOPER Comment on above: Right Hip Pain Start: 05-31-2024 End: 05-31-2024 Telephone encounter Pinky Wilson APRN.CHIEF DEPUTY COURT CLERK Work Phone: [facility] Comment on above: Consult Start: 05-30-2024 End: 05-30-2024 Telephone encounter Heriberto Perez MD Work Phone: [facility] Start: 05-25-2024 End: 05-25-2024 ambulatory HERIBERTO PEREZ Facility:[facility] Start: 05-25-2024 End: 05-25-2024 Patient encounter procedure Heriberto Perez MD Work Phone: Urology Comment on above: BPH with obstruction /lower urinary tract symptoms (Primary Dx); Elevated prostate specific antigen (PSA) Start: 05-24-2024 End: 05-24-2024 Refill Heriberto Perez MD Work Phone: [facility] Start: 05-20-2024 End: 05-20-2024 Refill Heriberto Perez MD Work Phone: Urology Start: 05-13-2024 End: 05-13-2024 ambulatory Wali Coleman PA-C Work Phone: Urology Comment on above: Results of ISO PSA Start: 05-13-2024 End: 05-18-2024 Telephone encounter Walinita Coleman PA-C Work Phone: Urology Comment on above: Results Start: 05-10-2024 End: 05-10-2024 ambulatory WALI COLEMAN Facility:[facility] Start: 05-10-2024 End: 05-10-2024 Patient encounter procedure Wali Coleman PA-C Work Phone: Urology Comment on above: Elevated PSA (Primar y Dx); Screening for genitourinary condition Start: 04-29-2024 End: 04-29-2024 Telephone encounter Pinky Wilson APRN.CHIEF DEPUTY COURT CLERK Work Phone: [facility] Comment on above: Results (Free PSA) Start: 04-25-2024 End: 04-25-2024 Refill Pinky Wilson APRN.CHIEF DEPUTY COURT CLERK Work Phone: [facility] [place] Comment on above: Med Change Request Start: 04-25-2024 End: 04-25-2024 ambulatory [facility] Facility:[facility] Start: 04-25-2024 End: 04-25-2024 ambulatory [facility] Facility:[facility] Start: 04-25-2024 End: 04-25-2024 Patient encounter procedure Pinky Wilson APRN.CHIEF DEPUTY COURT CLERK Work Phone: [facility] Comment on above: Medicare annual well ness visit, initial (Primary Dx); Fungal skin infection; Weakness of right shoulder; Elevated PSA; Hyperlipidemia, mixed; ED (erectile dysfunction) of organic origin; Screening for depression; Elevated blood pressure reading without diagnosis of hypertension; Encounter for screening examination for other mental health and behavioral disorders; Encounter for immunization Start: 04-18-2024 End: 04-18-2024 ambulatory [facility] Facility:[facility] Start: 04-18-2024 Encounter for genera l adult medical examination without abnormal findings HERIBERTO PEREZ [facility] Start: 04-17-2024 End: 04-18-2024 ambulatory Pinky Wilson APRN.CNP Work Phone: [facility] Comment on above: RSV, COVID, Flu vacc inations Start: 03-19-2024 End: 03-22-2024 Refill Oscar Ray APRN.CHIEF DEPUTY COURT CLERK, DNP Work Phone: [facility] Comment on above: Refill Request Start: 01-15-2024 Telephone encounter Golden sanders MD Work Phone: [facility] Start: 10-28-2023 End: 10-28-2023 ambulatory [facility] Work Phone: Start: 10-28-2023 End: 10-28-2023 Patient encounter procedure [facility] Work Phone: Start: 10-28-2023 End: 10-28-2023 ambulatory [facility] Facility:[facility] Start: 05-21-2023 Chart abstracting Sleep Center Main Work Phone: Neurology Comment on above: HSAT Check In (Adult ) Start: 05-20-2023 Refill Oscar BEAN RN.CHIEF DEPUTY COURT CLERK, DNP Work Phone: [facility] Comment on above: Refill Request Start: 03-01-2023 ambulatory Pinky Hanhpraful RINA.CHIEF DEPUTY COURT CLERK Work Phone: [facility] [place] Start: 03-01-2023 Patient encounter procedure Pinky Hanhpraful RINA.CHIEF DEPUTY COURT CLERK Work Phone: [facility] Comment on above: Blood work for upcom ing appointment Start: 07-15-2022 End: 07-15-2022 Nursing evaluation of patient and report Mi Nurse Work Phone: [facility] Comment on above: Need for vaccination (Primary Dx) Start: 05-15-2022 Telephone encounter Shirley Johan garcia Work Phone: Podiatry Comment on above: Appointment Start: 05-02-2022 ambulatory Pinky Wilson APRN.CNP Work Phone: [facility] [place] Start: 05-02-2022 Patient encounter procedure Pinky Hanhpraful RINA.CHIEF DEPUTY COURT CLERK Work Phone: [facility] Comment on above: Appointment with Dr. Taveras Start: 04-29-2022 Orders Only Shirley gan Work Phone: Podiatry Comment on above: Pain in right foot ( Primary Dx) Start: 04-24-2022 End: 04-24-2022 Patient encounter procedure Pinky Wilson APRN.CNP Work Phone: [facility] Comment on above: Wellness examination (Primary Dx); Elevated blood pressure reading without diagnosis of hypertension; Foot pain, right; Hyperlipidemia, mixed; Screening for colon cancer; Flu vaccine need; Screening for diabetes mellitus Start: 04-24-2022 End: 04-24-2022 Patient encounter status Pinky Tylermarivelpraful RINA.CHIEF DEPUTY COURT CLERK Work Phone: [facility] Procedures Date Procedure Procedure Detail Performing Clinician Start: 11-08-2024 Urnls dip stick/tabl et rgnt auto w/o microscopy Heriberto Perez MD Work Phone: Start: 06-03-2024 Radex hip unilateral with pelvis 2-3 views Marcus Haro STRATEGY ANALYST.CHIEF DEPUTY COURT CLERK Work Phone: Start: 05-25-2024 Urnls dip stick/tabl et rgnt auto w/o microscopy Heriberto Perez MD Work Phone: Start: 05-10-2024 Urnls dip stick/tabl et rgnt auto w/o microscopy Wali Coleman PA-C Work Phone: Start: 04-25-2024 Adult depression scr eening assessment Pinky Wilson STRATEGY ANALYST.CHIEF DEPUTY COURT CLERK Work Phone: Start: 04-18-2024 Lipid 1996 panel - S kassi or Plasma Pinky Wilson STRATEGY ANALYST.CHIEF DEPUTY COURT CLERK Work Phone: Start: 04-04-2023 Lipid 1996 panel - S kassi or Plasma Oscar Ray STRATEGY ANALYST.CHIEF DEPUTY COURT CLERK, DNP Work Phone: Start: 07-15-2022 [facility] COVI D-19 BIVALENT BOOSTER VACCINE, AGE 12+ YR Golden Michel MD Work Phone: Start: 04-24-2022 INFLUENZA VACCINE QUADRIVALENT 6 MO - 64 YRS IM Pinky Wilson STRATEGY ANALYST.CHIEF DEPUTY COURT CLERK Work Phone: Start: 10-03-2011 Colonoscopy Pinky yeh STRATEGY ANALYST.CHIEF DEPUTY COURT CLERK Work Phone: Plan of Treatment Date Care Activity Detail Author Start: 11-08-2029 Prostate specific antigen measurement Prostate Cancer Screening Discussion [facility] Start: 04-25-2029 Prostate specific antigen measurement Prostate Cancer Screening Discussion [facility] Start: 04-18-2029 Lipid panel Lipid Screening [facility] Start: 04-18-2029 Prostate specific antigen measurement Prostate Cancer Screening Discussion [facility] Start: 04-04-2028 Lipid 1996 panel - S kassi or Plasma Lipid Screening [facility] Start: 04-04-2028 Lipid panel Lipid Screening [facility] Start: 06-11-2027 LIPID SCREEN LIPID SCREEN [facility] Start: 04-18-2027 Diabetes Screening Diabetes Screenin [facility] Start: 07-23-2026 Diabetes Screening Diabetes Screenin g [facility] Start: 05-19-2026 Urine microalbumin profile [facility] Start: 04-04-2026 Diabetes Screening Diabetes Screenin g [facility] Start: 03-19-2026 LIPID SCREEN LIPID SCREEN [facility] Start: 11-16-2025 End: 11-16-2025 Patient encounter procedure 11/16/2025 9:45 AM EDT Office Visit Urology [address] [place] [address] Heriberto Perez MD [address] [place] [address] 1 year follow up w/ PSA (x2) Urology Comment on above: 1 year follow up w/ PSA (x2) Start: 11-08-2025 End: 02-07-2026 Prostate Specific Ag Free [Mass/volume] in Serum or Plasma PROSTATE SPECIFIC ANTIGEN, FREE AND TOTAL Lab Routine Elevated PSA Expected: 11/08/2025, Expires: 02/07/2026 [facility] Comment on above: Expected: 11/08/2025 , Expires: 02/07/2026 Start: 06-11-2025 DIABETES SCREEN DIABETES SCREEN [facility] Start: 05-21-2025 COLOGUARD (FIT-DNA) COLOGUARD (FIT-D NA) [facility] Start: 05-21-2025 Colorectal Cancer Screening Colorectal Cancer Screening [facility] Start: 05-21-2025 Screening for malign ant neoplasm of colon [facility] Start: 04-25-2025 Anxiety Screening Anxiety Screening [facility] Start: 04-25-2025 Depression Screening Depression Scre ening [facility] Start: 04-24-2025 End: 04-24-2025 Patient encounter procedure [facility] Comment on above: yearly physical yearly physical and vaccines Start: 04-05-2025 End: 07-05-2025 Comprehensive metabolic 2000 panel - Serum or Plasma COMPREHENSIVE METABOLIC PANEL Lab Routine Hyperlipidemia, mixed Medicare annual wellness visit, initial Expected: 04/05/2025 (Approximate), Expires: 07/05/2025 [facility] Comment on above: Expected: 04/05/2025 (Approximate), Expires: 07/05/2025 Start: 04-05-2025 End: 07-05-2025 Lipid 1996 panel - Serum or Plasma LIPID PANEL, FASTING Lab Routine Hyperlipidemia, mixed Medicare annual wellness visit, initial Expected: 04/05/2025 (Approximate), Expires: 07/05/2025 [facility] Comment on above: Expected: 04/05/2025 (Approximate), Expires: 07/05/2025 Start: 04-05-2025 End: 07-05-2025 Prostate Specific Ag Free [Mass/volume] in Serum or Plasma PROSTATE SPECIFIC ANTIGEN, FREE AND TOTAL Lab Routine Elevated PSA Medicare annual wellness visit, initial Expected: 04/05/2025 (Approximate), Expires: 07/05/2025 [facility] Work Phone: Comment on above: Expected: 04/05/2025 (Approximate), Expires: 07/05/2025 Start: 04-05-2025 End: 04-05-2025 ambulatory 04/05/2025 9:00 AM EDT Results Only [facility] [address] [facility] [place] [address] [facility] Start: 03-27-2025 Influenza vaccination Influenza Vacc ine (#1) [facility] Start: 11-28-2024 End: 11-28-2024 ambulatory 11/28/2024 9:00 AM EDT Results Only [facility] [address] [place] [address] [facility] Start: 11-27-2024 End: 02-26-2025 Prostate specific Ag [Mass/volume] in Serum or Plasma PROSTATE-SPECIFIC ANTIGEN DIAGNOSTIC Lab Routine Elevated PSA Expected: 11/27/2024, Expires: 02/26/2025 [facility] Work Phone: Comment on above: Expected: 11/27/2024 , Expires: 02/26/2025 Start: 11-10-2024 End: 11-10-2024 Patient encounter procedure Urology Comment on above: 6 month f/u with PSA prior Start: 11-08-2024 End: 02-07-2025 Prostate specific Ag [Mass/volume] in Serum or Plasma PROSTATE-SPECIFIC ANTIGEN DIAGNOSTIC Lab Routine Elevated PSA Expected: 11/08/2024, Expires: 02/07/2025 [facility] Work Phone: Comment on above: Expected: 11/08/2024 , Expires: 02/07/2025 Start: 11-08-2024 End: 02-07-2025 Prostate Specific Ag Free [Mass/volume] in Serum or Plasma [facility] Comment on above: Expected: 11/08/2024 , Expires: 02/07/2025 Start: 07-27-2024 Advance Directive Discussion Advance Directive Discussion [facility] Start: 07-27-2024 Medicare Advantage Annual Wellness Visit Medicare Advantage Annual Wellness Visit [facility] Start: 07-08-2024 End: 07-08-2024 Patient encounter procedure 07/08/2024 8:15 AM EST Office Visit Podiatry [address] [place] [address] Shirley Taveras [address] [place] [address] Fungal skin infection Podiatry Comment on above: Fungal skin infectio n Start: 06-17-2024 End: 06-17-2024 Patient encounter procedure 06/17/2024 11:00 AM EST Office Visit [facility] [address] [place] [address] Sonido Mauricio V, DO [address] [place] [address] Pain of right hip [M25.551] [facility] Comment on above: Pain of right hip [M 25.551] Start: 06-06-2024 PROSTATE CANCER SCREENING DISCUSSION PROSTATE CANCER SCREENING DISCUSSION [facility] Start: 06-06-2024 Prostate specific antigen measurement Prostate Cancer Screening Discussion [facility] Start: 06-06-2024 End: 06-06-2024 Patient encounter procedure 06/06/2024 9:20 AM EST Office Visit [facility] [address] [place] [address] Pinky Wilson APRN.CHIEF DEPUTY COURT CLERK [address] [facility] [address] chauncey pain [facility] [place] Comment on above: chauncey pain Start: 06-06-2024 End: 06-06-2024 Patient encounter procedure 06/06/2024 8:15 AM EST Office Visit Podiatry [address] [place] [address] Shirley Taveras [address] [place] [address] Fungal skin infection Podiatry Comment on above: Fungal skin infectio n Start: 06-02-2024 End: 06-02-2024 Patient encounter procedure 06/02/2024 8:00 AM EST Office Visit Urology [address] [id number] Heriberto Perez MD [address] [place] [phone] 1-2 week follow up Urology Comment on above: 1-2 week follow up Start: 05-25-2024 End: 05-25-2024 Patient encounter procedure 05/25/2024 8:30 AM EDT Office Visit Urology [address] [place], [place] [id number] Heriberto Perez MD [address] [place] [address] prostate bx Urology Comment on above: prostate bx Start: 05-10-2024 End: 05-10-2024 Patient encounter procedure 05/10/2024 3:15 PM EDT Office Visit Urology [address] [place] [address] Wali Coleman PA-C [address] [place], [place] [id number] Elevated PSA Urology Comment on above: Elevated PSA Start: 05-10-2024 End: 08-09-2024 ISOPSA ASSAY FOR UROLOGY USE ONLY [facility] Comment on above: Expected: 05/10/2024 (Approximate), Expires: 08/09/2024 Start: 04-25-2024 End: 07-25-2024 Prostate Specific Ag Free [Mass/volume] in Serum or Plasma [facility] Work Phone: Comment on above: Expected: 04/25/2024 , Expires: 07/25/2024 Start: 04-25-2024 End: 04-25-2024 Patient encounter procedure 04/25/2024 8:00 AM EDT Office Visit [facility] [place] [address] [facility] [place] [address] Pinky Wilson, STRATEGY ANALYST.CHIEF DEPUTY COURT CLERK [address] [place] [address] MEDICARE WELLNESS [facility] [place] Comment on above: MEDICARE WELLNESS Start: 04-18-2024 End: 04-18-2024 ambulatory 04/18/2024 7:00 AM EDT Results Only [facility] [address] [place] [address] lab [facility] Comment on above: lab Start: 03-27-2024 Covid-19 Vaccine ( season) Covid-19 Vaccine ( season) [facility] Start: 03-27-2024 Influenza vaccination Influenza Vacc ine (#1) [facility] Start: 03-19-2024 DIABETES SCREEN DIABETES SCREEN [facility] Start: 11-09-2023 Covid-19 Vaccine ( season) Covid-19 Vaccine ( season) [facility] Start: 09-27-2023 Advance Directive Discussion Advance Directive Discussion [facility] Start: 09-27-2023 Pneumococcal Vaccine : 65+ (1 of 1 - PCV) Pneumococcal Vaccine: 65+ (1 of 1 - PCV) [facility] Start: 07-27-2023 Behavioral Health Screening Behavioral Health Screening [facility] Start: 04-02-2023 End: 06-02-2023 Comprehensive metabolic 2000 panel - Serum or Plasma COMP METABOLIC PANEL Lab Routine Hyperlipidemia, mixed Dysmetabolic syndrome X Expected: 04/02/2023 (Approximate), Expires: 06/02/2023 [facility] Work Phone: Comment on above: Expected: 04/02/2023 (Approximate), Expires: 06/02/2023 Start: 04-02-2023 End: 06-02-2023 Hemoglobin A1c in Blood HGB A1C Lab Routine Dysmetabolic syndrome X Expected: 04/02/2023 (Approximate), Expires: 06/02/2023 [facility] Work Phone: Comment on above: Expected: 04/02/2023 (Approximate), Expires: 06/02/2023 Start: 04-02-2023 End: 06-02-2023 Lipid 1996 panel - Serum or Plasma LIPID PANEL BASIC Lab Routine Hyperlipidemia, mixed Expected: 04/02/2023 (Approximate), Expires: 06/02/2023 [facility] Work Phone: Comment on above: Expected: 04/02/2023 (Approximate), Expires: 06/02/2023 Start: 03-27-2023 Covid-19 Vaccine () Covid-19 Vaccine () [facility] Start: 03-27-2023 Influenza vaccination INFLUENZA (#1) [facility] Start: 07-27-2022 DEPRESSION ASSESSMENT DEPRESSION ASS ESSMENT [facility] Start: 05-22-2022 COLORECTAL CANCER SCREENING COLORECTAL CANCER SCREENING [facility] Start: 04-24-2022 End: 06-24-2022 Comprehensive metabolic 2000 panel - Serum or Plasma COMP METABOLIC PANEL Lab Routine Wellness examination Expected: 04/24/2022, Expires: 06/24/2022 [facility] Work Phone: Comment on above: Expected: 04/24/2022 , Expires: 06/24/2022 Start: 04-24-2022 End: 06-24-2022 Hemoglobin A1c in Blood HGB A1C Lab Routine Screening for diabetes mellitus Expected: 04/24/2022, Expires: 06/24/2022 [facility] Work Phone: Comment on above: Expected: 04/24/2022 , Expires: 06/24/2022 Start: 04-24-2022 End: 06-24-2022 Lipid 1996 panel - Serum or Plasma LIPID PANEL BASIC Lab Routine Hyperlipidemia, mixed Expected: 04/24/2022, Expires: 06/24/2022 [facility] Work Phone: Comment on above: Expected: 04/24/2022 , Expires: 06/24/2022 Start: 11-18-2021 COVID-19 VACCINE (4 - Booster for Pfizer series) COVID-19 VACCINE (4 - Booster for Pfizer series) [facility] Start: 10-02-2021 Colonoscopy COLONOSCOPY [facility] Start: 10-02-2021 COLORECTAL CANCER SCREENING COLORECTAL CANCER SCREENING [facility] Start: 07-27-2021 DEPRESSION ASSESSMENT DEPRESSION ASS ESSMENT [facility] Start: 2018 RSV Vaccine (1 - 1-d ose 60+ series) RSV Vaccine (1 - 1-dose 60+ series) [facility] Start: 10-02-2012 Colonoscopy Colonoscopy [facility] Start: 10-02-2012 Screening for malign ant neoplasm of colon Colonoscopy [facility] Start: 2008 Pneumococcal Vaccine : 50+ (1 of 1 - PCV) Pneumococcal Vaccine: 50+ (1 of 1 - PCV) [facility] Start: 09-27-2003 COLOGUARD (FIT-DNA) COLOGUARD (FIT-D NA) [facility] Start: 09-27-[address] COLONOGRAPHY [facility] Start: 09-27-2003 FECAL OCCULT BLOOD FECAL OCCULT BLOO D [facility] Start: 09-27-2003 Screening for malign ant neoplasm of colon [facility] Start: 09-27-2003 SIGMOIDOSCOPY SIGMOIDOSCOPY [facility] Start: 1976 Anxiety Screening Anxiety Screening [facility] Start: 1976 Depression Screening Depression Scre ening [facility] COLOGUARD COLOGUARD Lab Ro utine Screening for colon cancer Ordered: 04/24/2022 [facility] Work Phone: Comment on above: Ordered: 04/24/2022 POST VOID RESIDUAL POST VOID RES IDUAL Procedures Routine Elevated PSA Screening for genitourinary condition Ordered: 05/10/2024 [facility] Work Phone: Comment on above: Ordered: 05/10/2024 PROSTATE BIOPSY GUKI PROSTATE BI OPSY GUKI Procedures Routine Elevated prostate specific antigen (PSA) Ordered: 05/13/2024 [facility] Work Phone: Comment on above: Ordered: 05/13/2024 SURGICAL PATHOLOGY SURGICAL PATH OLOGY Lab Routine BPH with obstruction/lower urinary tract symptoms Elevated prostate specific antigen (PSA) Ordered: 05/25/2024 [facility] Work Phone: Comment on above: Ordered: 05/25/2024 XR Foot - bilateral AP and Lateral and oblique XR FOOT GENERAL 3V AP/LAT/OBL BILATERAL Radiology Routine Callus of foot Hammer toes of both feet 06/06/2024 9:35 AM EST [facility] Work Phone: End: 07-06-2025 XR Foot - right AP and Lateral and oblique XR FOOT GENERAL 3V AP/LAT/OBL RIGHT Radiology Routine Callus of foot 1 Occurrences starting 06/06/2024 until 07/06/2025 [facility] Work Phone: Comment on above: 1 Occurrences starti ng 06/06/2024 until 07/06/2025 End: 05-29-2023 XR FOOT GENERAL 3V AP/LAT/OBL RIGHT XR FOOT GENERAL 3V AP/LAT/OBL RIGHT Radiology Routine Pain in right foot 1 Occurrences starting 04/29/2022 until 05/29/2023 [facility] Work Phone: Comment on above: 1 Occurrences starti ng 04/29/2022 until 05/29/2023 [facility] Immunizations Immunization Date Immunization Notes Care Provider [facility] 04-25-2024 influenza, high dose seasonal, preservative-free Pinky Wilson STRATEGY ANALYST.CHIEF DEPUTY COURT CLERK Work Phone: [facility] 04-25-2024 influenza virus vaccine, unspecified formulation Idris Dailey STRATEGY ANALYST.CHIEF DEPUTY COURT CLERK Work Phone: [facility] 07-22-2023 respiratory syncytia l virus (RSV) vaccine, bivalent (ABRYSVO) Golden Michel MD Work Phone: [facility] 07-10-2023 COVID-19 vaccine, ag e 12+ yr, season (PFIZER-BIONTECH) Golden Michel MD Work Phone: [facility] 04-24-2023 influenza, injectabl e, quadrivalent, contains preservative Oscar Ray STRATEGY ANALYST.CHIEF DEPUTY COURT CLERK, DNP Work Phone: [facility] 04-24-2023 influenza virus vaccine, unspecified formulation Oscar Ray APRN.CHIEF DEPUTY COURT CLERK, DNP Work Phone: [facility] 07-15-2022 COVID-19 booster vaccine, age 12+ yr, bivalent (PFIZER-BIONTECH) Mi Nurse Work Phone: [facility] Work Phone: 04-24-2022 influenza, injectabl e, quadrivalent, contains preservative Pinky Tylerhof STRATEGY ANALYST.CHIEF DEPUTY COURT CLERK Work Phone: [facility] 09-23-2021 COVID-19 original vaccine, age 12+ yr, monovalent (PFIZER-BIONTECH - ARROYO TOP) Pinky Tannhof STRATEGY ANALYST.CHIEF DEPUTY COURT CLERK Work Phone: [facility] Work Phone: 06-14-2021 influenza, injectabl e, quadrivalent, contains preservative Pinky Tannhof STRATEGY ANALYST.CHIEF DEPUTY COURT CLERK Work Phone: [facility] Work Phone: 03-21-2021 COVID-19 original vaccine, age 12+ yr, monovalent (PFIZER-BIONTECH - PURPLE TOP) Pinky Tannhof STRATEGY ANALYST.CHIEF DEPUTY COURT CLERK Work Phone: [facility] 02-25-2021 COVID-19 original vaccine, age 12+ yr, monovalent (PFIZER-BIONTECH - PURPLE TOP) Pinky Tannhof STRATEGY ANALYST.CHIEF DEPUTY COURT CLERK Work Phone: [facility] 04-23-2020 influenza, injectabl e, quadrivalent, contains preservative Pinky Tannhof STRATEGY ANALYST.CHIEF DEPUTY COURT CLERK Work Phone: [facility] 06-03-2019 influenza, injectabl e, quadrivalent, contains preservative Pinky Tannhof STRATEGY ANALYST.CHIEF DEPUTY COURT CLERK Work Phone: [facility] 05-31-2018 influenza, injectabl e, quadrivalent, contains preservative Pinky Tannhof STRATEGY ANALYST.CHIEF DEPUTY COURT CLERK Work Phone: [facility] 03-08-2018 zoster vaccine recombinant Pinky Tannhof STRATEGY ANALYST.CHIEF DEPUTY COURT CLERK Work Phone: [facility] Work Phone: 12-28-2017 zoster vaccine recombinant Pinky Tannhof STRATEGY ANALYST.CHIEF DEPUTY COURT CLERK Work Phone: [facility] Work Phone: 06-16-2017 influenza, injectabl e, quadrivalent, contains preservative Pinky Tannhof STRATEGY ANALYST.[facility] Work Phone: [facility] Work Phone: 05-19-2016 influenza, injectabl e, quadrivalent, contains preservative Pinky Tannhof STRATEGY ANALYST.[facility] Work Phone: [facility] 05-19-2016 tetanus toxoid, reduced diphtheria toxoid, and acellular pertussis vaccine, adsorbed Pinky Tannhof STRATEGY ANALYST.[facility] Work Phone: [facility] 06-20-2015 influenza, injectabl e, quadrivalent, contains preservative Pinky Tannhof STRATEGY ANALYST.[facility] Work Phone: [facility] 06-29-2014 influenza, seasonal, injectable Pinky Tannhof STRATEGY ANALYST.CHIEF DEPUTY COURT CLERK Work Phone: [facility] 06-28-2012 influenza virus vaccine, unspecified formulation Pinky Tannhof STRATEGY ANALYST.CHIEF DEPUTY COURT CLERK Work Phone: [facility] 06-10-2011 influenza virus vaccine, unspecified formulation Pinky Tannhof STRATEGY ANALYST.CHIEF DEPUTY COURT CLERK Work Phone: [facility] Work Phone: 06-25-2010 influenza virus vaccine, unspecified formulation Pinky Tannhof STRATEGY ANALYST.[facility] Work Phone: [facility] 11-06-2008 tuberculin skin test ; purified protein derivative solution, intradermal Oscar Ray STRATEGY ANALYST.CHIEF DEPUTY COURT CLERK, DNP Work Phone: [facility] 07-27-1997 diphtheria and tetan us toxoids, adsorbed for pediatric use Pinky Tannhof STRATEGY ANALYST.CHIEF DEPUTY COURT CLERK Work Phone: [facility] Work Phone: 11-09-1983 diphtheria and tetan us toxoids, adsorbed for pediatric use Pinky Tannhof STRATEGY ANALYST.CHIEF DEPUTY COURT CLERK Work Phone: [facility] Work Phone: Payers Date Payer Category Payer Medicare UHC MEDICARE UHC MEDICARE ADVANTAGE PPO [id number] 2023-Present [phone] [address] [address] [place] [address] PPO [id number] 2023 Medicare (Managed Care) [facility] CARE ADVANTAGE PPO [id number] 2023 Medicare [id number] 2023 Self-pay [id number] 2017 Private Health Insurance [id number] Medicare MEDICARE PART A B [id number] Private Health Insurance [facility] [id number] Unknown [id number] Unknown [id number] Social History Date Type Detail Facility Start: 04-24-2022 Tobacco smoking status NHIS Never smoked tobacco [facility] Start: 04-24-2022 Tobacco use and exposure Smokeless tobacco non-user [facility] Start: 04-24-2022 End: 03-26-2025 Alcohol intake Current drinker of alcohol (finding) [facility] Start: 04-24-2022 History SDOH Alcohol Frequency 5 [facility] Start: 04-24-2022 History SDOH Alcohol Std Drinks 1 [facility] Start: 04-24-2022 History SDOH Social Connections Oriental Orthodox 3 [facility] Start: 04-24-2022 History SDOH Physical Activity DPW 7 [facility] Start: 04-24-2022 History SDOH Transport Med 2 [facility] Start: 06-06-2019 Education 17 [facility] Start: 1960 Sex Assigned At Male [facility] Start: 04-14-2022 End: 04-24-2022 Exposure to SARS-CoV-2 (event) Not sure [facility] Start: 04-24-2022 End: 04-24-2023 History of Social function [facility] Start: 04-24-2022 End: 04-24-2023 Social connection and isolation panel [facility] Do you belong to any clubs or organizations such as hinduism groups, unions, fraternal or athletic groups, or school groups? Yes [facility] Are you now , , , , never or living with a partner? [facility] How often to you hav e a drink containing alcohol? 4 or more times a week [facility] How many standard dr inks containing alcohol do you have on a typical day? 1 or 2 [facility] How often do you hav e 6 or more drinks on 1 occasion? Never [facility] Start: 06-27-2012 How hard is it for you to pay for the very basics like food, housing, medical care, and heating Not hard at all [facility] Do you feel stress - tense, restless, nervous, or anxious, or unable to sleep at night because your mind is troubled all the time - these days [OSQ] To some extent [facility] (I/We) worried wheth er (my/our) food would run out before (I/we) got money to buy more. Never true [facility] In the past 12 month s, was there a time when you were not able to pay the mortgage or rent on time? No [facility] Start: 06-01-2019 Gender identity Identifies as male gender (finding) [facility] Start: 06-01-2019 Sexual orientation Heterosexual (finding) [facility] Start: 01-11-2022 Tobacco smoking status NHIS Unknown if ever smoked [facility] Start: 07-07-2019 Non-smoker [facility] Do you feel stress - tense, restless, nervous, or anxious, or unable to sleep at night because your mind is troubled all the time - these days [OSQ] Not at all [facility] Functional Status Date Assessment Result Facility 06-29-2014 Are you deaf, or do you have serious difficulty hearing No 06/29/2014 8:53 AM Shadi Lynch LPN No [facility] 06-29-2014 Are you blind, or do you have serious difficulty seeing, even when wearing glasses No 06/29/2014 8:53 AM Shadi Lynch LPN No [facility] 06-29-2014 Do you have serious difficulty walking or climbing stairs No 06/29/2014 8:53 AM Shadi Lynch LPN No [facility] 06-29-2014 Do you have difficul ty dressing or bathing No 06/29/2014 8:53 AM Shadi Lynch LPN No [facility] 06-29-2014 Because of a physica l, mental, or emotional condition, do you have difficulty doing errands alone such as visiting a physician's office or shopping No 06/29/2014 8:53 AM Shadi Lynch LPN No [facility] Mental Status Date Assessment Result Facility 06-29-2014 Because of a physica l, mental, or emotional condition, do you have serious difficulty concentrating, remembering, or making decisions No 06/29/2014 8:53 AM Shadi Lynch LPN No [facility] Clinical Notes 06-28-2012 to 03-26-2025 Ximena Christian APRN.CHIEF DEPUTY COURT CLERK - 03/26/2025 8:28 AM EDTTelephone Encounter - Daylin Patel RN - 03/26/2025 7:51 AM EDTTelephone Encounter - Daylin Patel RN - 03/26/2025 7:51 AM EDT Note Date & Type Note Facility 03-26-2025 Note HNO ID: [id number] Author: XIMENA CHRISTIAN APRN.CHIEF DEPUTY COURT CLERK Service: ? Author Type: Nurse Practitioner Type: Progress Notes Filed: 03/26/2025 09:40 Note Text: [facility] Sofia is a 64 year old male. Patient presents with: Neck Pain: Neck pain x4 days HPI The patient is a 64-year-old male presenting with acute onset neck pain. Neck Pain: - Onset of symptoms began on . - Describes pain as really sore on Thursday evening, improved on Thursday morning, but worsened again last night and this morning. - Pain localized to the neck, with numbness on both sides; worsens with rapid head movements. - No known trauma or injury; possible aggravation from lifting heavy objects. - Denies numbness or tingling in the arms. - No rash observed; has received a shingles vaccine. - Pain not localized to the spine; no pain when leaning forward or on the sides. - Reports headache on Thursday, now resolving. - Aggravated by looking down, arching back, and raising the right arm. - Has been using Bengay and Meloxicam with some relief. 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 Review of Systems Constitutional: (-) fever Head: (+) headache Neck: (+) neck pain, (+) neck paresthesia Skin: (-) rash Neurological: (-) upper extremity paresthesia Musculoskeletal: (-) spinal pain PAST MEDICAL HISTORY Diagnosis Date Elevated prostate specific antigen (PSA) 04/29/2024 Hyperlipidemia LDL goal < 130 04/23/2010 Tinea pedis 06/28/2012 PAST SURGICAL HISTORY Procedure Laterality Date COLONOSCOPY FLX DX W/COLLJ SPEC WHEN PFRMD 10/03/11 repeat 10 years PAST SURGICAL HISTORY OF bilateral foot surgery PAST SURGICAL HISTORY OF Right 09/08/2019 Shoulder tendon repair ALLERGIES Patient has no known allergies. MEDICATIONS sildenafil (VIAGRA) 50 mg tablet Take one tablet by mouth 60 minutes prior to sexual activity. Not to exceed one tablet per 24 hours. For erectile dysfunction cyclobenzaprine (FLEXERIL) 10 mg tablet Take 1 tablet by mouth three times a day as needed for up to 7 days. FAMILY HISTORY Problem Relation Age of Onset Heart Mother CABG, VALVE REPLACEMENT Ischemic Heart Disease Mother Hypertension Father CABG Ischemic Heart Disease Father Ischemic Heart Disease Maternal Grandfather Heart Attack Maternal Grandfather Heart Attack Paternal Grandmother SOCIAL HISTORY[1] PAST MEDICAL HISTORY Diagnosis Date Elevated prostate specific antigen (PSA) 04/29/2024 Hyperlipidemia LDL goal < 130 04/23/2010 Tinea pedis 06/28/2012 PAST SURGICAL HISTORY Procedure Laterality Date COLONOSCOPY FLX DX W/COLLJ SPEC WHEN PFRMD 10/03/11 repeat 10 years PAST SURGICAL HISTORY OF bilateral foot surgery PAST SURGICAL HISTORY OF Right 09/08/2019 Shoulder tendon repair ALLERGIES Patient has no known allergies. MEDICATIONS sildenafil (VIAGRA) 50 mg tablet Take one tablet by mouth 60 minutes prior to sexual activity. Not to exceed one tablet per 24 hours. For erectile dysfunction cyclobenzaprine (FLEXERIL) 10 mg tablet Take 1 tablet by mouth three times a day as needed for up to 7 days. FAMILY HISTORY Problem Relation Age of Onset Heart Mother CABG, VALVE REPLACEMENT Ischemic Heart Disease Mother Hypertension Father CABG Ischemic Heart Disease Father Ischemic Heart Disease Maternal Grandfather Heart Attack Maternal Grandfather Heart Attack Paternal Grandmother SOCIAL HISTORY[2] Objective BP 163/94 Pulse 70 Temp 36.1 ?C (97 ?F) Resp 20 Wt 86 kg (189 lb 9.5 oz) SpO2 98% BMI 30.60 kg/m? Physical Exam Constitutional: General: He is not in acute distress. Appearance: Normal appearance. He is normal weight. He is not ill-appearing or toxic-appearing. Cardiovascular: Rate and Rhythm: Normal rate and regular rhythm. Pulmonary: Effort: Pulmonary effort is normal. Breath sounds: Normal breath sounds. Musculoskeletal: Right shoulder: Normal. Left shoulder: Normal. Cervical back: Deformity, spasms and tenderness present. No swelling, edema, erythema, signs of trauma, lacerations, rigidity, torticollis, bony tenderness or crepitus. Pain with movement present. Normal range of motion. Thoracic back: Normal. Lumbar back: Normal. Back: Comments: Cervical paraspinal muscle tightness and pain with flexion and extension; pain with right arm elevation; no pain with left arm elevation. Neurological: Mental Status: He is alert. { 1. Strain of neck muscle, initial encounter (S16.1XXA) 2. Muscle spasm of back (M62.830) - Acute onset neck pain and muscle spasm without identifiable trauma; symptoms likely musculoskeletal in origin. - No radicular symptoms or concerning findings for nerve impingement; meningitis ruled out based on preserved neck motion, absence of fever, and lack of systemic symptoms. - Continue NSAIDs (meloxicam, naprox (more content not included)... [facility] 03-26-2025 History of Presen t illness Narrative Images from the original note were not included. [facility] Shepard Sonya Sofia is a 64 year old male. Patient presents with: Neck Pain: Neck pain x4 days HPI The patient is a 64-year-old male presenting with acute onset neck pain. Neck Pain: - Onset of symptoms began on . - Describes pain as really sore on Thursday evening, improved on Thursday morning, but worsened again last night and this morning. - Pain localized to the neck, with numbness on both sides; worsens with rapid head movements. - No known trauma or injury; possible aggravation from lifting heavy objects. - Denies numbness or tingling in the arms. - No rash observed; has received a shingles vaccine. - Pain not localized to the spine; no pain when leaning forward or on the sides. - Reports headache on Thursday, now resolving. - Aggravated by looking down, arching back, and raising the right arm. - Has been using Bengay and Meloxicam with some relief. 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 Review of Systems Constitutional: (-) fever Head: (+) headache Neck: (+) neck pain, (+) neck paresthesia Skin: (-) rash Neurological: (-) upper extremity paresthesia Musculoskeletal: (-) spinal pain PAST MEDICAL HISTORY Diagnosis Date Elevated prostate specific antigen (PSA) 04/29/2024 Hyperlipidemia LDL goal < 130 04/23/2010 Tinea pedis 06/28/2012 PAST SURGICAL HISTORY Procedure Laterality Date COLONOSCOPY FLX DX W/COLLJ SPEC WHEN PFRMD 10/03/11 repeat 10 years PAST SURGICAL HISTORY OF bilateral foot surgery PAST SURGICAL HISTORY OF Right 09/08/2019 Shoulder tendon repair ALLERGIES Patient has no known allergies. MEDICATIONS sildenafil (VIAGRA) 50 mg tablet Take one tablet by mouth 60 minutes prior to sexual activity. Not to exceed one tablet per 24 hours. For erectile dysfunction cyclobenzaprine (FLEXERIL) 10 mg tablet Take 1 tablet by mouth three times a day as needed for up to 7 days. FAMILY HISTORY Problem Relation Age of Onset Heart Mother CABG, VALVE REPLACEMENT Ischemic Heart Disease Mother Hypertension Father CABG Ischemic Heart Disease Father Ischemic Heart Disease Maternal Grandfather Heart Attack Maternal Grandfather Heart Attack Paternal Grandmother SOCIAL HISTORY[1] PAST MEDICAL HISTORY Diagnosis Date Elevated prostate specific antigen (PSA) 04/29/2024 Hyperlipidemia LDL goal < 130 04/23/2010 Tinea pedis 06/28/2012 PAST SURGICAL HISTORY Procedure Laterality Date COLONOSCOPY FLX DX W/COLLJ SPEC WHEN PFRMD 10/03/11 repeat 10 years PAST SURGICAL HISTORY OF bilateral foot surgery PAST SURGICAL HISTORY OF Right 09/08/2019 Shoulder tendon repair ALLERGIES Patient has no known allergies. MEDICATIONS sildenafil (VIAGRA) 50 mg tablet Take one tablet by mouth 60 minutes prior to sexual activity. Not to exceed one tablet per 24 hours. For erectile dysfunction cyclobenzaprine (FLEXERIL) 10 mg tablet Take 1 tablet by mouth three times a day as needed for up to 7 days. FAMILY HISTORY Problem Relation Age of Onset Heart Mother CABG, VALVE REPLACEMENT Ischemic Heart Disease Mother Hypertension Father CABG Ischemic Heart Disease Father Ischemic Heart Disease Maternal Grandfather Heart Attack Maternal Grandfather Heart Attack Paternal Grandmother SOCIAL HISTORY[2] Objective BP 163/94 Pulse 70 Temp 36.1 C (97 F) Resp 20 Wt 86 kg (189 lb 9.5 oz) SpO2 98% BMI 30.60 kg/m Physical Exam Constitutional: General: He is not in acute distress. Appearance: Normal appearance. He is normal weight. He is not ill-appearing or toxic-appearing. Cardiovascular: Rate and Rhythm: Normal rate and regular rhythm. Pulmonary: Effort: Pulmonary effort is normal. Breath sounds: Normal breath sounds. Musculoskeletal: Right shoulder: Normal. Left shoulder: Normal. Cervical back: Deformity, spasms and tenderness present. No swelling, edema, erythema, signs of trauma, lacerations, rigidity, torticollis, bony tenderness or crepitus. Pain with movement present. Normal range of motion. Thoracic back: Normal. Lumbar back: Normal. Back: Comments: Cervical paraspinal muscle tightness and pain with flexion and extension; pain with right arm elevation; no pain with left arm elevation. Neurological: Mental Status: He is alert. { 1. Strain of neck muscle, initial encounter (S16.1XXA) 2. Muscle spasm of back (M62.830) - Acute onset neck pain and muscle spasm without identifiable trauma; symptoms likely musculoskeletal in origin. - No radicular symptoms or concerning findings for nerve impingement; meningitis ruled out based on preserved neck motion, absence of fever, and lack of systemic symptoms. - Continue NSAIDs (meloxicam, naproxen) for a few more days as needed for pain and inflammation. - Start Flexeril 10 mg, 1 tablet PO TID PRN; advised to take at night due to potential drowsiness. Can break in hald and start with 5mg. - Educated on musculoskeletal strain, expected healing process, and medication use. - No red flag symptoms, no concern for cervial spinal tenderness, nuerovascular deficits, cauda equina, or radiculopathy. - Follow up with PCP, ER if sudden increase of pain, vomiting, fever or worsening of symptoms. and Recording using ambient [facility] software for draft documentation of the visit was discussed with the patient/authorized education courses sales representative; all questions welcomed and answered. Patient/authorized education courses sales representative agreed to proceed Disposition The patient was discharged. Patient well appearing nontoxic in no acute distress that presents with a neck strain. Patient pain is reproducible, no cervical spine tenderness, no radiculopathy or concern for nerve impingement. Continue NSAIDs, and will add muscle relaxer. Discussed drowsiness risk, take at night and can medication in half. Follow up with PCP, ER if worsening. Patient verbalized understanding in agreement with plan. Patient discharged home. [1] Social History Tobacco Use Smoking status: Never Smokeless tobacco: Never Vaping Use Vaping status: Never Used Substance Use Topics Alcohol use: Yes Comment: occasional Drug use: Never [2] Social History Tobacco Use Smoking status: Never Smokeless tobacco: Never Vaping Use Vaping status: Never Used Substance Use Topics Alcohol use: Yes Comment: occasional Drug use: Never documented in this encounter [facility] 03-26-2025 Telephone encounter Note Reason for Call: Neck pain Outcome: Advised to be seen within 3 days. Patient will go to [facility]. Disposition SEE PCP WITHIN 3 DAYS Reason for Disposition [1] MODERATE neck pain (e.g., interferes with normal activities) AND [2] present > 3 days 1. ONSET: 3 days ago. 2. LOCATION: Back of neck. 3. PATTERN Comes and and goes. Numbing pain in the area. When move fast, it hurts. Took Meloxicam yesterday and it helped the pain. Pain is sharp in nature. 4. SEVERITY: 2/10 now but worse with certain movements. 5. RADIATION: No. 6. CORD SYMPTOMS:Chronic weakness in right arm. Not new. 7. CAUSE: Unsure. 8. NECK OVERUSE: No. 9. OTHER SYMPTOMS: Headache. Had a fever a few days ago but not today. Trouble swallowing but is able to eat and drink. No Additional Information on file. Protocols Used Neck Pain or [id number] [facility] 03-26-2025 Miscellaneous Notes Reason for Call: Neck pain Outcome: Advised to be seen within 3 days. Patient will go to [facility]. Disposition SEE PCP WITHIN 3 DAYS Reason for Disposition [1] MODERATE neck pain (e.g., interferes with normal activities) AND [2] present > 3 days 1. ONSET: 3 days ago. 2. LOCATION: Back of neck. 3. PATTERN Comes and and goes. Numbing pain in the area. When move fast, it hurts. Took Meloxicam yesterday and it helped the pain. Pain is sharp in nature. 4. SEVERITY: 2/10 now but worse with certain movements. 5. RADIATION: No. 6. CORD SYMPTOMS:Chronic weakness in right arm. Not new. 7. CAUSE: Unsure. 8. NECK OVERUSE: No. 9. OTHER SYMPTOMS: Headache. Had a fever a few days ago but not today. Trouble swallowing but is able to eat and drink. No Additional Information on file. Protocols Used Neck Pain or [id number] documented in this encounter [facility] 03-20-2025 Telephone encounter Note The following approved medication requests have been transmitted electronically. Requested Prescriptions Pending Prescriptions Disp Refills sildenafil (VIAGRA) 50 mg tablet 12 tablet 3 Sig: Take one tablet by mouth 60 minutes prior to sexual activity. Not to exceed one tablet per 24 hours. For erectile dysfunction Idris Dailey APRN.CNP [facility] 03-20-2025 Miscellaneous Notes The following approved medication requests have been transmitted electronically. Requested Prescriptions Pending Prescriptions Disp Refills sildenafil (VIAGRA) 50 mg tablet 12 tablet 3 Sig: Take one tablet by mouth 60 minutes prior to sexual activity. Not to exceed one tablet per 24 hours. For erectile dysfunction Idris Dailey APRN.CNP The patient has been identified by name and date of : Yes Caregiver verified no other encounters exist for this prescription request: Yes Caregiver confirmed with patient/requestor that no other refills are due, in the near future, with this provider at this time: No The last office visit in the department: 04/25/2024 Does the patient have a future office visit with this provider/department: Yes 04/24/2025 Requested Prescriptions Pending Prescriptions Disp Refills sildenafil (VIAGRA) 50 mg tablet 12 tablet 3 Sig: Take one tablet by mouth 60 minutes prior to sexual activity. Not to exceed one tablet per 24 hours. For erectile dysfunction Meme Tomlinson MA March 20, 2025 9:06 AM documented in this encounter [facility] 03-20-2025 Telephone encounter Note The patient has been identified by name and date of : Yes Caregiver verified no other encounters exist for this prescription request: Yes Caregiver confirmed with patient/requestor that no other refills are due, in the near future, with this provider at this time: No The last office visit in the department: 04/25/2024 Does the patient have a future office visit with this provider/department: Yes 04/24/2025 Requested Prescriptions Pending Prescriptions Disp Refills sildenafil (VIAGRA) 50 mg tablet 12 tablet 3 Sig: Take one tablet by mouth 60 minutes prior to sexual activity. Not to exceed one tablet per 24 hours. For erectile dysfunction Meme Tomlinson MA March 20, 2025 9:06 AM [facility] 01-10-2025 Telephone encounter Note Notified via [employer] (formerly [employer]). Meme Tomlinson MA [facility] 01-10-2025 Miscellaneous Notes Notified via [employer] (formerly [employer]). Meme Tomlinson MA Orders placed. Idris Dailey APRN.CNP Patient is schedule for his yearly wellness 04/24/25 with Idris Dailey. Patient is asking for a blood panel to be placed along with a PSA for this appt. Please place orders if appropriate. Paco Hernández January 10, 2025 9:38 AM documented in this encounter [facility] 01-10-2025 Telephone encounter Note Orders placed. Idris Dailey APRN.CNP [facility] 01-10-2025 Telephone encounter Note Patient is schedule for his yearly wellness 04/24/25 with Idris Dailey. Patient is asking for a blood panel to be placed along with a PSA for this appt. Please place orders if appropriate. Paco Hernández January 10, 2025 9:38 AM [facility] 01-09-2025 Telephone encounter Note The following approved medication requests have been transmitted electronically. Requested Prescriptions Pending Prescriptions Disp Refills sildenafil (VIAGRA) 50 mg tablet 12 tablet 3 Sig: Take one tablet by mouth 60 minutes prior to sexual activity. Not to exceed one tablet per 24 hours. For erectile dysfunction Irdis Dailey APRN.CNP [facility] 01-09-2025 Miscellaneous Notes The following approved medication requests have been transmitted electronically. Requested Prescriptions Pending Prescriptions Disp Refills sildenafil (VIAGRA) 50 mg tablet 12 tablet 3 Sig: Take one tablet by mouth 60 minutes prior to sexual activity. Not to exceed one tablet per 24 hours. For erectile dysfunction Idris Dailey APRN.CNP Prescription Refill Information The patient has been identified by name and date of : Yes Caregiver verified no other encounters exist for this prescription request: Yes Caregiver confirmed with patient/requestor that no other refills are due, in the near future, with this provider at this time: Yes The last office visit in the department: 06/10/24 - Medicare Wellness 04/25/24 Does the patient have a future office visit with this provider/department: No - Due for Medicare Wellness around March. Updated pt of this via IP [employer]. Requested Prescriptions Pending Prescriptions Disp Refills sildenafil (VIAGRA) 50 mg tablet 12 tablet 3 Sig: Take one tablet by mouth 60 minutes prior to sexual activity. Not to exceed one tablet per 24 hours. For erectile dysfunction Therese Cabello MA January 09, 2025 8:02 AM documented in this encounter [facility] 01-09-2025 Telephone encounter Note Prescription Refill Information The patient has been identified by name and date of : Yes Caregiver verified no other encounters exist for this prescription request: Yes Caregiver confirmed with patient/requestor that no other refills are due, in the near future, with this provider at this time: Yes The last office visit in the department: 06/10/24 - Medicare Wellness 04/25/24 Does the patient have a future office visit with this provider/department: No - Due for Medicare Wellness around March. Updated pt of this via [employer]. Requested Prescriptions Pending Prescriptions Disp Refills sildenafil (VIAGRA) 50 mg tablet 12 tablet 3 Sig: Take one tablet by mouth 60 minutes prior to sexual activity. Not to exceed one tablet per 24 hours. For erectile dysfunction Therese Cabello MA January 09, 2025 8:02 AM [facility] 11-22-2024 Telephone encounter Note My chart message has been sent. Dylan Hardin CMA [facility] 11-22-2024 Miscellaneous Notes My chart message has been sent. Dylan Hardin CMA documented in this encounter [facility] 11-10-2024 Telephone encounter Note Patient advised- No. Tasneem Harden MA [facility] 11-10-2024 Telephone encounter Note ----- Message from Heriberto Perez MD sent at 11/10/2024 3:39 PM EDT ----- No ----- Message ----- From: Tasneem Harden MA Sent: 11/10/2024 2:53 PM EDT To: Heriberto Perez MD ----- Message from Tasneem Harden MA sent at 11/10/2024 2:53 PM EDT ----- ----- Message from Frankie Comer MA sent at 11/09/2024 3:39 PM EDT ----- Here are the test results.Keep follow up appointment to discuss the results. [facility] 11-10-2024 Miscellaneous Notes Patient advised- No. Tasneem Harden MA ----- Message from Heriberto Perez MD sent at 11/10/2024 3:39 PM EDT ----- No ----- Message ----- From: Tasneem Harden MA Sent: 11/10/2024 2:53 PM EDT To: Heriberto Perez MD ----- Message from Tasneem Harden MA sent at 11/10/2024 2:53 PM EDT ----- ----- Message from Frankie Comer MA sent at 11/09/2024 3:39 PM EDT ----- Here are the test results.Keep follow up appointment to discuss the results. Patient returned call to office. Patient advised PSA- 4.[address] Perez follow up is not til 11/16/2025. Patient inquiring if additional testings is needed at this time? Tasneem Harden MA Left message for pt to call back office PSA <2.60 ng/mL 4.34 High 4.82 High CM 0.95 R, CM Frankie Comer MA ----- Message from Heriberto Perez MD sent at 11/09/2024 3:02 PM EDT ----- Here are the test results.Keep follow up appointment to discuss the results. Here are the test results.Keep follow up appointment to discuss the results. documented in this encounter [facility] 11-10-2024 Telephone encounter Note Patient returned call to office. Patient advised PSA- 4.[address] Perez follow up is not til 11/16/2025. Patient inquiring if additional testings is needed at this time? Tasneem Harden MA [facility] 11-09-2024 Telephone encounter Note Left message for pt to call back office PSA <2.60 ng/mL 4.34 High 4.82 High CM 0.95 R, CM Frankie Comer MA [facility] 11-09-2024 Telephone encounter Note ----- Message from Heriberto Perez MD sent at 11/09/2024 3:02 PM EDT ----- Here are the test results.Keep follow up appointment to discuss the results. [facility] 11-09-2024 Progress note Formatting of t his note might be different from the original. Here are the test results.Keep follow up appointment to discuss the results. T [facility] Work Phone: 11-08-2024 Note HNO ID: [id number] Author: HERIBERTO PEREZ MD Service: ? Author Type: Physician Type: Progress Notes Filed: 11/08/2024 11:37 Note Text: CHIEF COMPLAINT The patient is a 64-year-old male with a history of elevated PSA, presenting for follow-up. HISTORY OF PRESENT ILLNESS: Elevated PSA: - Iso PSA of 8.6 in April. - Prostate biopsy in April was negative for cancer. - No PSA test since April. - Reports increased urinary frequency, attributes to aging and high coffee consumption. - Otherwise feeling well. @ROXANNA@ PSA (ng/mL) Date Value 04/25/2024 4.82 04/23/2010 0.95 PSA Screening (ng/mL) Date Value 04/18/2024 5.00 GLUCOSE UA (POCT) Negative 11/08/2024 BILIRUBIN UA (POCT) Negative 11/08/2024 KETONE UA (POCT) Negative 11/08/2024 SPECIFIC GRAVITY UA (POCT) 1.020 11/08/2024 HEMOGLOBIN/BLOOD UA (POCT) Negative 11/08/2024 PH UA (POCT) 6.0 11/08/2024 PROTEIN UA (POCT) Trace 11/08/2024 UROBILINOGEN UA (POCT) 0.2 11/08/2024 NITRITE UA (POCT) Negative 11/08/2024 LEUKOCYTES UA (POCT) Negative 11/08/2024 COLOR UA (POCT) Yellow 11/08/2024 CLARITY UA (POCT) Clear 11/08/2024 ALLERGIES: ALLERGIES No Known Allergies MEDICATIONS: sildenafil (VIAGRA) 50 mg tablet Take one tablet by mouth 60 minutes prior to sexual activity. Not to exceed one tablet per 24 hours. For erectile dysfunction HISTORIES: PAST MEDICAL HISTORY Diagnosis Date Elevated prostate specific antigen (PSA) 04/29/2024 Hyperlipidemia LDL goal < 130 04/23/2010 Bubba andrews 06/28/2012 has a past surgical history that includes past surgical history of; colonoscopy flx dx w/collj spec when pfrmd (10/03/11); and past surgical history of (Right, 09/08/2019). FAMILY HISTORY Problem Relation Age of Onset Heart Mother CABG, VALVE REPLACEMENT Ischemic Heart Disease Mother Hypertension Father CABG Ischemic Heart Disease Father Ischemic Heart Disease Maternal Grandfather Heart Attack Maternal Grandfather Heart Attack Paternal Grandmother Social History Tobacco Use Smoking status: Never Smokeless tobacco: Never Vaping Use Vaping status: Never Used Substance Use Topics Alcohol use: Yes Comment: occasional Drug use: Never REVIEW OF SYSTEMS: Const: Well appearing, in no acute distress, well-hydrated, well-nourished, alert, awake, oriented to time, place and person. The remainder of the ROS was reviewed and is negative. Genitourinary: (+) urinary frequency PHYSICAL EXAMINATION: General: No acute distress. BP 161/96 Pulse 64 SpO2 96% I personally reviewed the patient's radiology images and dictation and I agree with the radiologist's opinion. I personally reviewed the patient's laboratory studies. Assessment AND Plan: 1. Elevated PSA (R97.20) - Patient had a prostate biopsy in April, which was negative for malignancy. Iso PSA prior to biopsy was 8.6. - No PSA test has been conducted since April. - Ordered PSA free and total to be done immediately at any [facility] facility. - If PSA levels are elevated, additional testing such as prostate MRI or repeat PSA/iso PSA may be necessary. - If PSA levels remain stable or decrease, will recheck in one year. - Ordered PSA free and total for next year. - Discussed frequent urination; advised that high coffee intake may contribute. PSA free and total now and next year Written and verbal health teaching given to patient, patient verbalizes understanding and agrees with treatment plan. Patient will call if worsening symptoms, no improvement, or any other concerns. Plan discussed. Heriberto Perez MD Electronically Signed: Heriberto Perez MD November 08, 2024 11:37 AM This note was partially created using voice recognition software and is inherently subject to errors including those of syntax and sound-alike substitutions which may escape proofreading. In such instances, original meaning may be extrapolated by contextual derivation. Recording using [employer] software for draft documentation of the visit was discussed with the patient/authorized education courses sales representative; all questions welcomed and answered. Patient/authorized education courses sales representative agreed to proceed Patient Instructions Please go to any [facility] facility (or a lab in [place]) to have your PSA blood draw (PSA free and total) completed as soon as possible using the order provided. Your PSA will be rechecked once a year in the fall; an order for next year?s PSA has been placed. Consider reducing your coffee intake, as it may be contributing to your increased urination. We will review your PSA results and contact you if any further testing (such as a prostate MRI) is needed. [facility] 11-08-2024 History of Presen t illness Narrative Images from the original note were not included. CHIEF COMPLAINT The patient is a 64-year-old male with a history of elevated PSA, presenting for follow-up. HISTORY OF PRESENT ILLNESS: Elevated PSA: - Iso PSA of 8.6 in April. - Prostate biopsy in April was negative for cancer. - No PSA test since April. - Reports increased urinary frequency, attributes to aging and high coffee consumption. - Otherwise feeling well. @ROXANNA@ PSA (ng/mL) Date Value 04/25/2024 4.82 04/23/2010 0.95 PSA Screening (ng/mL) Date Value 04/18/2024 5.00 GLUCOSE UA (POCT) Negative 11/08/2024 BILIRUBIN UA (POCT) Negative 11/08/2024 KETONE UA (POCT) Negative 11/08/2024 SPECIFIC GRAVITY UA (POCT) 1.020 11/08/2024 HEMOGLOBIN/BLOOD UA (POCT) Negative 11/08/2024 PH UA (POCT) 6.0 11/08/2024 PROTEIN UA (POCT) Trace 11/08/2024 UROBILINOGEN UA (POCT) 0.2 11/08/2024 NITRITE UA (POCT) Negative 11/08/2024 LEUKOCYTES UA (POCT) Negative 11/08/2024 COLOR UA (POCT) Yellow 11/08/2024 CLARITY UA (POCT) Clear 11/08/2024 ALLERGIES: ALLERGIES No Known Allergies MEDICATIONS: sildenafil (VIAGRA) 50 mg tablet Take one tablet by mouth 60 minutes prior to sexual activity. Not to exceed one tablet per 24 hours. For erectile dysfunction HISTORIES: PAST MEDICAL HISTORY Diagnosis Date Elevated prostate specific antigen (PSA) 04/29/2024 Hyperlipidemia LDL goal < 130 04/23/2010 Bubba andrews 06/28/2012 has a past surgical history that includes past surgical history of; colonoscopy flx dx w/collj spec when pfrmd (10/03/11); and past surgical history of (Right, 09/08/2019). FAMILY HISTORY Problem Relation Age of Onset Heart Mother CABG, VALVE REPLACEMENT Ischemic Heart Disease Mother Hypertension Father CABG Ischemic Heart Disease Father Ischemic Heart Disease Maternal Grandfather Heart Attack Maternal Grandfather Heart Attack Paternal Grandmother Social History Tobacco Use Smoking status: Never Smokeless tobacco: Never Vaping Use Vaping status: Never Used Substance Use Topics Alcohol use: Yes Comment: occasional Drug use: Never REVIEW OF SYSTEMS: Const: Well appearing, in no acute distress, well-hydrated, well-nourished, alert, awake, oriented to time, place and person. The remainder of the ROS was reviewed and is negative. Genitourinary: (+) urinary frequency PHYSICAL EXAMINATION: General: No acute distress. BP 161/96 Pulse 64 SpO2 96% I personally reviewed the patient's radiology images and dictation and I agree with the radiologist's opinion. I personally reviewed the patient's laboratory studies. Assessment & Plan: 1. Elevated PSA (R97.20) - Patient had a prostate biopsy in April, which was negative for malignancy. Iso PSA prior to biopsy was 8.6. - No PSA test has been conducted since April. - Ordered PSA free and total to be done immediately at any [facility] facility. - If PSA levels are elevated, additional testing such as prostate MRI or repeat PSA/iso PSA may be necessary. - If PSA levels remain stable or decrease, will recheck in one year. - Ordered PSA free and total for next year. - Discussed frequent urination; advised that high coffee intake may contribute. PSA free and total now and next year Written and verbal health teaching given to patient, patient verbalizes understanding and agrees with treatment plan. Patient will call if worsening symptoms, no improvement, or any other concerns. Plan discussed. Heriberto Perez MD Electronically Signed: Heriberto Perez MD November 08, 2024 11:37 AM This note was partially created using voice recognition software and is inherently subject to errors including those of syntax and sound-alike substitutions which may escape proofreading. In such instances, original meaning may be extrapolated by contextual derivation. Recording using ambient [facility] software for draft documentation of the visit was discussed with the patient/authorized education courses sales representative; all questions welcomed and answered. Patient/authorized education courses sales representative agreed to proceed Patient Instructions Please go to any [facility] facility (or a lab in [place]) to have your PSA blood draw (PSA free and total) completed as soon as possible using the order provided. Your PSA will be rechecked once a year in the fall; an order for next year s PSA has been placed. Consider reducing your coffee intake, as it may be contributing to your increased urination. We will review your PSA results and contact you if any further testing (such as a prostate MRI) is needed. documented in this encounter [facility] 07-21-2024 Telephone encounter Note OK to refill as ordered Golden Michel MD [facility] 07-21-2024 Miscellaneous Notes OK to refill as ordered Golden Michel MD Prescription Refill Information The patient has been identified by name and date of : Yes Caregiver verified no other encounters exist for this prescription request: Yes Caregiver confirmed with patient/requestor that no other refills are due, in the near future, with this provider at this time: No The last office visit in the department: 04/25/24 Does the patient have a future office visit with this provider/department: No Requested Prescriptions Pending Prescriptions Disp Refills sildenafil (VIAGRA) 50 mg tablet 12 tablet 3 Sig: Take one tablet by mouth 60 minutes prior to sexual activity. Not to exceed one tablet per 24 hours. For erectile dysfunction Meme Tomlinson MA July 21, 2024 9:09 AM documented in this encounter [facility] 07-21-2024 Telephone encounter Note Prescription Refill Information The patient has been identified by name and date of : Yes Caregiver verified no other encounters exist for this prescription request: Yes Caregiver confirmed with patient/requestor that no other refills are due, in the near future, with this provider at this time: No The last office visit in the department: 04/25/24 Does the patient have a future office visit with this provider/department: No Requested Prescriptions Pending Prescriptions Disp Refills sildenafil (VIAGRA) 50 mg tablet 12 tablet 3 Sig: Take one tablet by mouth 60 minutes prior to sexual activity. Not to exceed one tablet per 24 hours. For erectile dysfunction Meme Tomlinson MA July 21, 2024 9:09 AM [facility] 06-10-2024 Note HNO ID: [id number] Author: SONIDO MAURICIO, DO Service: ? Author Type: Physician Type: Progress Notes Filed: 06/10/2024 12:53 Note Text: SERVICE DATE: June 10, 2024 PCP: Golden Michel MD Subjective Patient ID: Jimenez is a 63 year old male. Chief Complaint: Patient presents with: right hip pain PAIN EVALUATION No data found in the last 1 encounters. HPI Patient presents today for evaluation of right lateral hip pain. He states the pain started about 10 days ago with no specific injury that he is aware of. He thinks that there is possible relationship to changing his gait pattern due to a foot problem that he has had addressed. He reports pain along the lateral aspect of the hip that is worse with hip rotation. He notes that the pain has improved significantly since he made the appointment and today is minimally present. Have x-rays done which showed some arthritic changes and he would like to follow-up. Review of Systems ACTIVE PROBLEM LIST Dysmetabolic Syndrome X Hyperlipidemia, Mixed PAST MEDICAL HISTORY Diagnosis Date Elevated prostate specific antigen (PSA) 04/29/2024 Hyperlipidemia LDL goal < 130 04/23/2010 Tinea pedis 06/28/2012 PAST SURGICAL HISTORY Procedure Laterality Date COLONOSCOPY FLX DX W/COLLJ SPEC WHEN PFRMD 10/03/11 repeat 10 years PAST SURGICAL HISTORY OF bilateral foot surgery PAST SURGICAL HISTORY OF Right 09/08/2019 Shoulder tendon repair FAMILY HISTORY Problem Relation Age of Onset Heart Mother CABG, VALVE REPLACEMENT Ischemic Heart Disease Mother Hypertension Father CABG Ischemic Heart Disease Father Ischemic Heart Disease Maternal Grandfather Heart Attack Maternal Grandfather Heart Attack Paternal Grandmother Social History Tobacco Use Smoking status: Never Smokeless tobacco: Never Vaping Use Vaping status: Never Used Substance Use Topics Alcohol use: Yes Comment: occasional Drug use: Never ALLERGIES No Known Allergies MEDICATIONS: sildenafil (VIAGRA) 50 mg tablet Take one tablet by mouth 60 minutes prior to sexual activity. Not to exceed one tablet per 24 hours. For erectile dysfunction Allergies, medications, past surgical history, family history and past medical history were reviewed per this encounter. Objective Ortho Exam 63-year-old male is pleasant cooperative with exam in no acute distress. Evaluation of the right hip shows area of tenderness being over the posterior aspect of the greater trochanter. There is minimal tenderness with palpation. Hip flexion abduction and external rotation is mildly restricted compared to the left side. There is no pain with logroll. There is no pain with active hip motion resistance. Strays reviewed with the patient showing mild arthritic changes in the right hip Assessment/Plan ASSESSMENT Diagnosis (M25.551) Pain of right hip Plan: CONSULT TO ORTHOPAEDICS Office Visit on 06/10/24 CONSULT TO ORTHOPAEDICS PLAN Although x-rays are showing mild arthritic changes, I do not believe that the pain he was having is a result of arthritis. It sounds more like he was having inflammation over the trochanter and that he is medius tendon. Hip pain has since resolved. He is doing some physical therapy and home exercises for maintenance which I do recommend that he continue. FOLLOW-UP: No follow-ups on file. SIGNATURE: Sonido Mauricio DO PATIENT NAME: Sonya Sofia DATE: June 10, 2024 TIME: 12:49 PM [facility] 06-10-2024 History of Presen t illness Narrative SERVICE DATE: June 10, 2024 PCP: Golden Michel MD Subjective Patient ID: Jimenez is a 63 year old male. Chief Complaint: Patient presents with: right hip pain PAIN EVALUATION No data found in the last 1 encounters. HPI Patient presents today for evaluation of right lateral hip pain. He states the pain started about 10 days ago with no specific injury that he is aware of. He thinks that there is possible relationship to changing his gait pattern due to a foot problem that he has had addressed. He reports pain along the lateral aspect of the hip that is worse with hip rotation. He notes that the pain has improved significantly since he made the appointment and today is minimally present. Have x-rays done which showed some arthritic changes and he would like to follow-up. Review of Systems ACTIVE PROBLEM LIST Dysmetabolic Syndrome X Hyperlipidemia, Mixed PAST MEDICAL HISTORY Diagnosis Date Elevated prostate specific antigen (PSA) 04/29/2024 Hyperlipidemia LDL goal < 130 04/23/2010 Tinea pedis 06/28/2012 PAST SURGICAL HISTORY Procedure Laterality Date COLONOSCOPY FLX DX W/COLLJ SPEC WHEN PFRMD 10/03/11 repeat 10 years PAST SURGICAL HISTORY OF bilateral foot surgery PAST SURGICAL HISTORY OF Right 09/08/2019 Shoulder tendon repair FAMILY HISTORY Problem Relation Age of Onset Heart Mother CABG, VALVE REPLACEMENT Ischemic Heart Disease Mother Hypertension Father CABG Ischemic Heart Disease Father Ischemic Heart Disease Maternal Grandfather Heart Attack Maternal Grandfather Heart Attack Paternal Grandmother Social History Tobacco Use Smoking status: Never Smokeless tobacco: Never Vaping Use Vaping status: Never Used Substance Use Topics Alcohol use: Yes Comment: occasional Drug use: Never ALLERGIES No Known Allergies MEDICATIONS: sildenafil (VIAGRA) 50 mg tablet Take one tablet by mouth 60 minutes prior to sexual activity. Not to exceed one tablet per 24 hours. For erectile dysfunction Allergies, medications, past surgical history, family history and past medical history were reviewed per this encounter. Objective Ortho Exam 63-year-old male is pleasant cooperative with exam in no acute distress. Evaluation of the right hip shows area of tenderness being over the posterior aspect of the greater trochanter. There is minimal tenderness with palpation. Hip flexion abduction and external rotation is mildly restricted compared to the left side. There is no pain with logroll. There is no pain with active hip motion resistance. Strays reviewed with the patient showing mild arthritic changes in the right hip Assessment/Plan ASSESSMENT Diagnosis (M25.551) Pain of right hip Plan: CONSULT TO ORTHOPAEDICS Office Visit on 06/10/24 CONSULT TO ORTHOPAEDICS PLAN Although x-rays are showing mild arthritic changes, I do not believe that the pain he was having is a result of arthritis. It sounds more like he was having inflammation over the trochanter and that he is medius tendon. Hip pain has since resolved. He is doing some physical therapy and home exercises for maintenance which I do recommend that he continue. FOLLOW-UP: No follow-ups on file. SIGNATURE: Sonido Mauricio DO PATIENT NAME: Sonya Sofia DATE: June 10, 2024 TIME: 12:49 PM AMB ROOMING INTAKE FLOWSHEET DATA documented in this encounter [facility] 06-10-2024 Note HNO ID: [id number] Author: CHRISTY VERGARA MA Service: ? Author Type: Solution Lead Type: Progress Notes Filed: 06/10/2024 12:53 Note Text: AMB ROOMING INTAKE FLOWSHEET DATA [facility] 06-06-2024 History of Presen t illness Narrative Radiology Service Progress Note PATIENT NAME: Sonya Sofia DATE OF SERVICE: June 06, 2024 TIME: 8:22 PM PATIENT IDENTITY VERIFICATION COMPLETED USING TWO (2) IDENTIFIERS: Name and Date of confirmed by patient verbally. FALL SCREENING: Has the patient had 2 falls in the last year or 1 fall with injury or currently using an Ambulatory Assistive Device (Walker, Cane, Wheelchair, Crutches, etc.)? No PATIENT GENDER DATA: Male PATIENT RELEVANT IMPLANT DATA REVIEWED: Not Applicable PATIENT PRESENTS WITH AN IMPLANTABLE OR ATTACHED SENIOR NET DEVELOPER ARCHITECT: No RADIOLOGY DEPARTMENT: General X-ray: Exam(s) Completed: Lower Extremity X-Ray(s): Feet, Bilateral and Wt. Bearing PERIPHERAL IV DATA: Not applicable SIGNED BY: RT Ángela(R) June 06, 2024 8:22 PM documented in this encounter [facility] 06-06-2024 Note HNO ID: [id number] Author: DIVINE RIVERA RT(R) Service: ? Author Type: Technologist Type: Progress Notes Filed: 06/06/2024 20:23 Note Text: Radiology Service Progress Note PATIENT NAME: Sonya Sofia DATE OF SERVICE: June 06, 2024 TIME: 8:22 PM PATIENT IDENTITY VERIFICATION COMPLETED USING TWO (2) IDENTIFIERS: Name and Date of confirmed by patient verbally. FALL SCREENING: Has the patient had 2 falls in the last year or 1 fall with injury or currently using an Ambulatory Assistive Device (Walker, Cane, Wheelchair, Crutches, etc.)? No PATIENT GENDER DATA: Male PATIENT RELEVANT IMPLANT DATA REVIEWED: Not Applicable PATIENT PRESENTS WITH AN IMPLANTABLE OR ATTACHED SENIOR NET DEVELOPER ARCHITECT: No RADIOLOGY DEPARTMENT: General X-ray: Exam(s) Completed: Lower Extremity X-Ray(s): Feet, Bilateral and Wt. Bearing PERIPHERAL IV DATA: Not applicable SIGNED BY: RT Ángela(R) June 06, 2024 8:22 PM [facility] 06-06-2024 Instructions Shirley Taveras - 06/06/2024 8:47 AM EST You have a corn on the right 5th toe that is caused by toe rubbing. The corn was filed down today, may likely return. Consider the use of lambs wool between the toes or use of gel toe cap. Use the lambs wool until interspace moisture resolves. Regarding the athletes foot, I believe the condition has improved. Interspace is rather moist. Use lambs wool and betadine until moisture improves. Dry thoroughly between toes. documented in this encounter [facility] 06-06-2024 Note HNO ID: [id number] Author: SHIRLEY TAVERAS, ? Service: ? Author Type: Physician Type: Progress Notes Filed: 06/12/2024 11:14 Note Text: Initial Podiatric Office Visit: Chief Complaint: This 63 year old male who presents with chief complaint:right 5th toe pain HPI Patient presents to clinic for evaluation of right foot Complains of pain to the 5th toe This has been present since Currently not really doing anything for the pain. He thought it may have been related to ahtletes' foot. Is using a cream/powder and that may be helping. PAIN EVALUATION 06/03/2024 1611 06/06/2024 0811 Pain Level: 3 3 can get to 7/10 Pain Location: Foot-Right -- Duration Amount of Time: 2 -- Duration Units: Months -- Frequency: Intermittent -- Intervention/Comfort measure: Reposition;Cold -- Comments: Both feet have sore toes. -- Hemoglobin A1C (%) Date Value 04/18/2024 5.6 04/04/2023 5.6 06/11/2022 5.8 PCP: Golden Michel MD PAST MEDICAL HISTORY Diagnosis Date Elevated prostate specific antigen (PSA) 04/29/2024 Hyperlipidemia LDL goal < 130 04/23/2010 Tinea pedis 06/28/2012 Current Outpatient Medications Medication Sig sildenafil (VIAGRA) 50 mg tablet Take one tablet by mouth 60 minutes prior to sexual activity. Not to exceed one tablet per 24 hours. For erectile dysfunction No current facility-administered medications for this visit. ALLERGIES No Known Allergies PAST SURGICAL HISTORY Procedure Laterality Date COLONOSCOPY FLX DX W/COLLJ SPEC WHEN PFRMD 10/03/11 repeat 10 years PAST SURGICAL HISTORY OF bilateral foot surgery PAST SURGICAL HISTORY OF Right 09/08/2019 Shoulder tendon repair FAMILY HISTORY Problem Relation Age of Onset Heart Mother CABG, VALVE REPLACEMENT Ischemic Heart Disease Mother Hypertension Father CABG Ischemic Heart Disease Father Ischemic Heart Disease Maternal Grandfather Heart Attack Maternal Grandfather Heart Attack Paternal Grandmother Social History Tobacco Use Smoking status: Never Smokeless tobacco: Never Vaping Use Vaping status: Never Used Substance Use Topics Alcohol use: Yes Comment: occasional Drug use: Never REVIEW OF SYSTEMS GENERAL: Negative for Malaise, significant weight loss, fever RESPIRATORY: Negative for cough, wheezing and shortness of breath CARDIOVASCULAR: Negative for chest pain, leg swelling and palpitations GI: Negative for abdominal discomfort, blood in stools or black stools and change in bowel habits : Negative for dysuria, frequency and incontinence MUSCULOSKELETAL: Negative for joint pain or swelling, back pain, and muscle pain. SKIN: Negative for lesions, rash, and itching. HEMATOLOGY/LYMPHOLOGY Negative for prolonged bleeding, bruising easily, and swollen nodes. ENDOCRINE: Negative for cold or heat intolerance, polyuria, polydipsia and goiter. NEURO: negative Physical Exam: Constitutional: Pt is a well developed 63 year old male who is alert, oriented and cooperative Eyes: Following during examination. No redness or drainage. Respiratory: RR normal and nonlabored. Even breathing. No evidence of distress or shortness of breath. Psychology: Patient is engaged during conversation. Normal affect and mood. Does not appear depressed or anxious during encounter. Vascular: Dorsalis pedis and posterior tibial pulses palpable as b/l Capillary Fill time < 5 seconds to digits 1-5 b/l Skin temperature warm to warm proximal to distal b/l Hair growth present to digits Neurological: intact light touch/epicritic sensation b/l intact protective sensation no significant neurological deficits Dermatological: Nails 1-5 b/l appear normal. Webspaces clean and dry 1-4 b/l. No open lesions present. Hyperkeratosis present to medial aspect of right 5th toe. No ulceration. No signs of infection Scaling is noted to right foot. 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 Hammertoe is present to left 2nd toe Radiographs: ordered ASSESSMENT: (L84) Callus of foot (primary encounter diagnosis) (B35.3) Tinea pedis of both feet (M20.41, M20.42) Hammer toes of both feet PLAN: Discussed painful callus of right 5th toe. The callus is caused by rubbing between 4th and 5th toes. Callus was reduced with dremmel today. Pain was improved. Discussed options not limited to padding vs surgical correction of hammertoe. Will dispense padding. Xrays ordered. Shirley Taveras DPM Podiatry [address] [facility] [address] Dept: [phone] Dept [facility] 06-06-2024 History of Presen t illness Narrative Images from the original note were not included. Initial Podiatric Office Visit: Chief Complaint: This 63 year old male who presents with chief complaint:right 5th toe pain HPI Patient presents to clinic for evaluation of right foot Complains of pain to the 5th toe This has been present since January/February Currently not really doing anything for the pain. He thought it may have been related to ahtletes' foot. Is using a cream/powder and that may be helping. PAIN EVALUATION 06/03/2024 1611 06/06/2024 0811 Pain Level: 3 3 can get to 7/10 Pain Location: Foot-Right -- Duration Amount of Time: 2 -- Duration Units: Months -- Frequency: Intermittent -- Intervention/Comfort measure: Reposition;Cold -- Comments: Both feet have sore toes. -- Hemoglobin A1C (%) Date Value 04/18/2024 5.6 04/04/2023 5.6 06/11/2022 5.8 PCP: Golden Michel MD PAST MEDICAL HISTORY Diagnosis Date Elevated prostate specific antigen (PSA) 04/29/2024 Hyperlipidemia LDL goal < 130 04/23/2010 Tinea pedis 06/28/2012 Current Outpatient Medications Medication Sig sildenafil (VIAGRA) 50 mg tablet Take one tablet by mouth 60 minutes prior to sexual activity. Not to exceed one tablet per 24 hours. For erectile dysfunction No current facility-administered medications for this visit. ALLERGIES No Known Allergies PAST SURGICAL HISTORY Procedure Laterality Date COLONOSCOPY FLX DX W/COLLJ SPEC WHEN PFRMD 10/03/11 repeat 10 years PAST SURGICAL HISTORY OF bilateral foot surgery PAST SURGICAL HISTORY OF Right 09/08/2019 Shoulder tendon repair FAMILY HISTORY Problem Relation Age of Onset Heart Mother CABG, VALVE REPLACEMENT Ischemic Heart Disease Mother Hypertension Father CABG Ischemic Heart Disease Father Ischemic Heart Disease Maternal Grandfather Heart Attack Maternal Grandfather Heart Attack Paternal Grandmother Social History Tobacco Use Smoking status: Never Smokeless tobacco: Never Vaping Use Vaping status: Never Used Substance Use Topics Alcohol use: Yes Comment: occasional Drug use: Never REVIEW OF SYSTEMS GENERAL: Negative for Malaise, significant weight loss, fever RESPIRATORY: Negative for cough, wheezing and shortness of breath CARDIOVASCULAR: Negative for chest pain, leg swelling and palpitations GI: Negative for abdominal discomfort, blood in stools or black stools and change in bowel habits : Negative for dysuria, frequency and incontinence MUSCULOSKELETAL: Negative for joint pain or swelling, back pain, and muscle pain. SKIN: Negative for lesions, rash, and itching. HEMATOLOGY/LYMPHOLOGY Negative for prolonged bleeding, bruising easily, and swollen nodes. ENDOCRINE: Negative for cold or heat intolerance, polyuria, polydipsia and goiter. NEURO: negative Physical Exam: Constitutional: Pt is a well developed 63 year old male who is alert, oriented and cooperative Eyes: Following during examination. No redness or drainage. Respiratory: RR normal and nonlabored. Even breathing. No evidence of distress or shortness of breath. Psychology: Patient is engaged during conversation. Normal affect and mood. Does not appear depressed or anxious during encounter. Vascular: Dorsalis pedis and posterior tibial pulses palpable as b/l Capillary Fill time < 5 seconds to digits 1-5 b/l Skin temperature warm to warm proximal to distal b/l Hair growth present to digits Neurological: intact light touch/epicritic sensation b/l intact protective sensation no significant neurological deficits Dermatological: Nails 1-5 b/l appear normal. Webspaces clean and dry 1-4 b/l. No open lesions present. Hyperkeratosis present to medial aspect of right 5th toe. No ulceration. No signs of infection Scaling is noted to right foot. 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 Hammertoe is present to left 2nd toe Radiographs: ordered ASSESSMENT: (L84) Callus of foot (primary encounter diagnosis) (B35.3) Tinea pedis of both feet (M20.41, M20.42) Hammer toes of both feet PLAN: Discussed painful callus of right 5th toe. The callus is caused by rubbing between 4th and 5th toes. Callus was reduced with dremmel today. Pain was improved. Discussed options not limited to padding vs surgical correction of hammertoe. Will dispense padding. Xrays ordered. Shirley Taveras DPM Podiatry [address] [facility] [address] Dept: [phone] Dept AMB ROOMING INTAKE FLOWSHEET DATA Pain Pain Level: 3 (can get to 7/10) Pain Location: Foot-Right Duration Amount of Time: 2 Duration Units: Months Frequency: Intermittent Intervention/Comfort measure: Reposition, Cold Comments: Both feet have sore toes. Patient presents with: Left Foot - Established Patient, Follow Up, Athlete Foot Right Foot - Established Patient, Follow Up, Pain, Athlete Foot Patient presents for athletes foot to both feet that has been ongoing for about 25 years. Has tried some OTC and prescription strength medication for it. Also states that right 5th toe he injured a while back and it has not gotten better. Hx. Of hammer toe to left middle toe. [facility] 07/29/22 documented in this encounter [facility] 06-06-2024 Note HNO ID: [id number] Author: HALLE BRENNER RN Service: ? Author Type: Registered Nurse Type: Progress Notes Filed: 06/12/2024 11:14 Note Text: AMB ROOMING INTAKE FLOWSHEET DATA Pain Pain Level: 3 (can get to 7/10) Pain Location: Foot-Right Duration Amount of Time: 2 Duration Units: Months Frequency: Intermittent Intervention/Comfort measure: Reposition, Cold Comments: Both feet have sore toes. Patient presents with: Left Foot - Established Patient, Follow Up, Athlete Foot Right Foot - Established Patient, Follow Up, Pain, Athlete Foot Patient presents for athletes foot to both feet that has been ongoing for about 25 years. Has tried some OTC and prescription strength medication for it. Also states that right 5th toe he injured a while back and it has not gotten better. Hx. Of hammer toe to left middle toe. [facility] 07/29/22 [facility] 06-03-2024 History of Presen t illness Narrative Radiology Service Progress Note PATIENT NAME: Sonya Sofia DATE OF SERVICE: June 03, 2024 TIME: 9:11 AM PATIENT IDENTITY VERIFICATION COMPLETED USING TWO (2) IDENTIFIERS: Name and Date of confirmed by patient verbally. FALL SCREENING: Has the patient had 2 falls in the last year or 1 fall with injury or currently using an Ambulatory Assistive Device (Walker, Cane, Wheelchair, Crutches, etc.)? No PATIENT GENDER DATA: Male PATIENT RELEVANT IMPLANT DATA REVIEWED: Yes PATIENT PRESENTS WITH AN IMPLANTABLE OR ATTACHED SENIOR NET DEVELOPER ARCHITECT: No RADIOLOGY DEPARTMENT: General X-ray: Exam(s) Completed: Pelvis X-Ray: Pelvis with Hip Right PERIPHERAL IV DATA: Not applicable SIGNED BY: RT Eleanor(R) June 03, 2024 9:11 AM documented in this encounter [facility] 06-03-2024 Note HNO ID: [id number] Author: JONATAN CONTRERAS RT(R) Service: ? Author Type: Dyeing Machine Tender Type: Progress Notes Filed: 06/03/2024 09:29 Note Text: Radiology Service Progress Note PATIENT NAME: Sonya Sofia DATE OF SERVICE: June 03, 2024 TIME: 9:11 AM PATIENT IDENTITY VERIFICATION COMPLETED USING TWO (2) IDENTIFIERS: Name and Date of confirmed by patient verbally. FALL SCREENING: Has the patient had 2 falls in the last year or 1 fall with injury or currently using an Ambulatory Assistive Device (Walker, Cane, Wheelchair, Crutches, etc.)? No PATIENT GENDER DATA: Male PATIENT RELEVANT IMPLANT DATA REVIEWED: Yes PATIENT PRESENTS WITH AN IMPLANTABLE OR ATTACHED SENIOR NET DEVELOPER ARCHITECT: No RADIOLOGY DEPARTMENT: General X-ray: Exam(s) Completed: Pelvis X-Ray: Pelvis with Hip Right PERIPHERAL IV DATA: Not applicable SIGNED BY: RT Eleanor(R) June 03, 2024 9:11 AM [facility] 06-03-2024 Note HNO ID: [id number] Author: MARCUS HARO APRN.CHIEF DEPUTY [employer] CLERK Service: ? Author Type: Nurse Practitioner Type: Progress Notes Filed: 06/03/2024 09:52 Note Text: Subjective HPI Nontoxic-appearing male presents urgent care chief complaint right hip pain. Duration of symptoms 3 days. Associated symptoms right hip discomfort. Started last Thursday mildly has worsened over the last few few days. Presents today for evaluation. No trauma. No leg weakness or saddle anesthesia or incontinence. No numbness or radiculopathy. No back pain. 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 Denies hip pain in the past. Denies osteoarthritis. Past medical history prescription medications allergies reviewed. No surgeries or fractures previously to this area. .Patient presents with: Right Hip Pain: X3 days PAST MEDICAL HISTORY Diagnosis Date Elevated prostate specific antigen (PSA) 04/29/2024 Hyperlipidemia LDL goal < 130 04/23/2010 Tinea pedis 06/28/2012 PAST SURGICAL HISTORY Procedure Laterality Date COLONOSCOPY FLX DX W/COLLJ SPEC WHEN PFRMD 10/03/11 repeat 10 years PAST SURGICAL HISTORY OF bilateral foot surgery PAST SURGICAL HISTORY OF Right 09/08/2019 Shoulder tendon repair ALLERGIES Patient has no known allergies. MEDICATIONS sildenafil (VIAGRA) 50 mg tablet Take one tablet by mouth 60 minutes prior to sexual activity. Not to exceed one tablet per 24 hours. For erectile dysfunction FAMILY HISTORY Problem Relation Age of Onset Heart Mother CABG, VALVE REPLACEMENT Ischemic Heart Disease Mother Hypertension Father CABG Ischemic Heart Disease Father Ischemic Heart Disease Maternal Grandfather Heart Attack Maternal Grandfather Heart Attack Paternal Grandmother Social History Tobacco Use Smoking status: Never Smokeless tobacco: Never Vaping Use Vaping status: Never Used Substance Use Topics Alcohol use: Yes Comment: occasional Drug use: Never BP 162/79 Pulse 70 Temp 36.9 ?C (98.4 ?F) Resp 18 Wt 86.6 kg (190 lb 14.7 oz) SpO2 98% BMI 30.81 kg/m? Review of Systems Constitutional: Negative for chills, fever and malaise/fatigue. Musculoskeletal: Positive for joint pain. Negative for back pain, falls, myalgias and neck pain. Neurological: Negative for dizziness, loss of consciousness, weakness and headaches. Objective Physical Exam Constitutional: General: He is not in acute distress. Appearance: He is not toxic-appearing. HENT: Head: Normocephalic. Nose: Nose normal. Eyes: Pupils: Pupils are equal, round, and reactive to light. Cardiovascular: Rate and Rhythm: Normal rate. Pulmonary: Effort: Pulmonary effort is normal. No respiratory distress. Musculoskeletal: Cervical back: Normal range of motion. Legs: Comments: Pain with palpation over highlighted area. No weakness. No erythema edema. No warmth. Skin: General: Skin is warm and dry. Neurological: General: No focal deficit present. Mental Status: He is alert. ASSESSMENT/PLAN: 1. Pain of right hip - ICD9: 719.45, ICD10: M25.551 - XR HIP GENERAL 3V PELV/AP/LAT RIGHT IMPRESSION: No acute osseous abnormality. Mild RIGHT hip osteoarthritis. Diagnosed with right hip pain. Treat with NSAIDs or Tylenol. Orthopedic referral placed. Symptoms are not improving follow-up with orthopedics. Patient was educated on supportive therapies. Patient will follow up with primary care provider as needed. Patient was instructed to immediately proceed to emergency room for any new, worsening, or symptoms lasting longer than anticipated. The patient's clinical presentation is otherwise unremarkable at this time. Based on exam and clinical finding, the patient is stable for discharge. Plan of care was discussed with patient. Patient verbalizes understanding and agrees to plan of care. This note was generated using [employer] software. It may contain errors in wording, punctuation, or spelling. Marcus Haro APRN.[facility] 06-03-2024 History of Presen t illness Narrative Images from the original note were not included. Subjective HPI Nontoxic-appearing male presents urgent care chief complaint right hip pain. Duration of symptoms 3 days. Associated symptoms right hip discomfort. Started last Thursday mildly has worsened over the last few few days. Presents today for evaluation. No trauma. No leg weakness or saddle anesthesia or incontinence. No numbness or radiculopathy. No back pain. 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 Denies hip pain in the past. Denies osteoarthritis. Past medical history prescription medications allergies reviewed. No surgeries or fractures previously to this area. .Patient presents with: Right Hip Pain: X3 days PAST MEDICAL HISTORY Diagnosis Date Elevated prostate specific antigen (PSA) 04/29/2024 Hyperlipidemia LDL goal < 130 04/23/2010 Tinea pedis 06/28/2012 PAST SURGICAL HISTORY Procedure Laterality Date COLONOSCOPY FLX DX W/COLLJ SPEC WHEN PFRMD 10/03/11 repeat 10 years PAST SURGICAL HISTORY OF bilateral foot surgery PAST SURGICAL HISTORY OF Right 09/08/2019 Shoulder tendon repair ALLERGIES Patient has no known allergies. MEDICATIONS sildenafil (VIAGRA) 50 mg tablet Take one tablet by mouth 60 minutes prior to sexual activity. Not to exceed one tablet per 24 hours. For erectile dysfunction FAMILY HISTORY Problem Relation Age of Onset Heart Mother CABG, VALVE REPLACEMENT Ischemic Heart Disease Mother Hypertension Father CABG Ischemic Heart Disease Father Ischemic Heart Disease Maternal Grandfather Heart Attack Maternal Grandfather Heart Attack Paternal Grandmother Social History Tobacco Use Smoking status: Never Smokeless tobacco: Never Vaping Use Vaping status: Never Used Substance Use Topics Alcohol use: Yes Comment: occasional Drug use: Never BP 162/79 Pulse 70 Temp 36.9 C (98.4 F) Resp 18 Wt 86.6 kg (190 lb 14.7 oz) SpO2 98% BMI 30.81 kg/m Review of Systems Constitutional: Negative for chills, fever and malaise/fatigue. Musculoskeletal: Positive for joint pain. Negative for back pain, falls, myalgias and neck pain. Neurological: Negative for dizziness, loss of consciousness, weakness and headaches. Objective Physical Exam Constitutional: General: He is not in acute distress. Appearance: He is not toxic-appearing. HENT: Head: Normocephalic. Nose: Nose normal. Eyes: Pupils: Pupils are equal, round, and reactive to light. Cardiovascular: Rate and Rhythm: Normal rate. Pulmonary: Effort: Pulmonary effort is normal. No respiratory distress. Musculoskeletal: Cervical back: Normal range of motion. Legs: Comments: Pain with palpation over highlighted area. No weakness. No erythema edema. No warmth. Skin: General: Skin is warm and dry. Neurological: General: No focal deficit present. Mental Status: He is alert. ASSESSMENT/PLAN: 1. Pain of right hip - ICD9: 719.45, ICD10: M25.551 - XR HIP GENERAL 3V PELV/AP/LAT RIGHT IMPRESSION: No acute osseous abnormality. Mild RIGHT hip osteoarthritis. Diagnosed with right hip pain. Treat with NSAIDs or Tylenol. Orthopedic referral placed. Symptoms are not improving follow-up with orthopedics. Patient was educated on supportive therapies. Patient will follow up with primary care provider as needed. Patient was instructed to immediately proceed to emergency room for any new, worsening, or symptoms lasting longer than anticipated. The patient's clinical presentation is otherwise unremarkable at this time. Based on exam and clinical finding, the patient is stable for discharge. Plan of care was discussed with patient. Patient verbalizes understanding and agrees to plan of care. This note was generated using [employer] software. It may contain errors in wording, punctuation, or spelling. Marcus Haro APRN.JALIL documented in this encounter [facility] 06-02-2024 Telephone encounter Note Reason for Call: Right hip pain, denies any injury Outcome: See PCP within 3 days Patient verbalized understanding of the recommendation provided. Alternative options including Emergency Department, Urgent Care, Express Care discussed with patient. Patient states he is going to go to the local Express Care tomorrow morning. Reason for Disposition [1] MODERATE pain (e.g., interferes with normal activities, limping) AND [2] present > 3 days Answer Assessment - Initial Assessment Questions 1. LOCATION and RADIATION: Right hip 2. QUALITY: Sharp pain with movement, dull ache when staying still 3. SEVERITY: Depends on movement. With movement, the pain is 6-7/10 and being still, pain is 4/10 * Took a leftover pain pill last night, helped with pain 4. ONSET: Thursday, worsened over the past 2 days 5. WORK OR EXERCISE: Denies 6. CAUSE: Possibly slipped and did not realize he hurt his hip. Patient denies slipping. 7. AGGRAVATING FACTORS: Walking or going up the stairs, lifting right leg up 8. OTHER SYMPTOMS: Denies Protocols used: [id number] [facility] 06-02-2024 Miscellaneous Notes Reason for Call: Right hip pain, denies any injury Outcome: See PCP within 3 days Patient verbalized understanding of the recommendation provided. Alternative options including Emergency Department, Urgent Care, Express Care discussed with patient. Patient states he is [facility]. Reason for Disposition [1] MODERATE pain (e.g., interferes with normal activities, limping) AND [2] present > 3 days Answer Assessment - Initial Assessment Questions 1. LOCATION and RADIATION: Right hip 2. QUALITY: Sharp pain with movement, dull ache when staying still 3. SEVERITY: Depends on movement. With movement, the pain is 6-7/10 and being still, pain is 4/10 * Took a leftover pain pill last night, helped with pain 4. ONSET: Thursday, worsened over the past 2 days 5. WORK OR EXERCISE: Denies 6. CAUSE: Possibly slipped and did not realize he hurt his hip. Patient denies slipping. 7. AGGRAVATING FACTORS: Walking or going up the stairs, lifting right leg up 8. OTHER SYMPTOMS: Denies Protocols used: Hip Nsil-NREPI-NP documented in this encounter [facility] 05-31-2024 Telephone encounter Note Pt sent mychart message notifying him Podiatry referral has been placed. Pt notified he can contact office and speak with Sccm Administrator to help assist him to setup appt. Therese Cabello MA [facility] 05-31-2024 Miscellaneous Notes Pt sent mychart message notifying him Podiatry referral has been placed. Pt notified he can contact office and speak with Sccm Administrator to help assist him to setup appt. Therese Cabello MA Consult has been placed for podiatry, he may schedule appointment any time. Thank you. Pinky Wilson APRN.CNP Pt states he saw Pinky Wilson in late March and was having some issues with his toes. Pt states this has not improved and thought that Pinky said she would refer him to Podiatry if the problem continued. Per OV note from 04/25, pt had a fungal skin infection and was instructed to follow up with podiatry if no improvement. Referral pended. Please call pt once referral has been placed to schedule the appt. documented in this encounter [facility] 05-31-2024 Telephone encounter Note Consult has been placed for podiatry, he may schedule appointment any time. Thank you. Pinky Wilson APRN.CNP [facility] 05-31-2024 Telephone encounter Note Pt states he saw Pinky Wilson in late March and was having some issues with his toes. Pt states this has not improved and thought that Pinky said she would refer him to Podiatry if the problem continued. Per OV note from 04/25, pt had a fungal skin infection and was instructed to follow up with podiatry if no improvement. Referral pended. Please call pt once referral has been placed to schedule the appt. [facility] 05-30-2024 Telephone encounter Note Called and gave Jimenez biopsy results, Jimenez decided to follow up in 6 months with PSA 1 week prior as he has no post op issues or concerns. PSA order is pended for upcoming appointment in October 2024. [facility] 05-30-2024 Miscellaneous Notes Called and gave Jimenez biopsy results, Jimenez decided to follow up in 6 months with PSA 1 week prior as he has no post op issues or concerns. PSA order is pended for upcoming appointment in October 2024. documented in this encounter [facility] 05-25-2024 Nurse Note Internal Sales offered:Patient accepts, visit chaperoned by Yang Charlton MA [facility] 05-25-2024 Nurse Note Internal Sales offered:Patient accepts, visit chaperoned by Yang Charlton MA documented in this encounter [facility] 05-25-2024 Note HNO ID: [id number] Author: HERIBERTO PEREZ MD Service: ? Author Type: Physician Type: Procedures Filed: 05/25/2024 09:35 Note Text: Pre-op diagnosis: Elevated PSA Postop diagnosis: Elevated PSA Procedure: Transrectal ultrasound-guided biopsy the prostate The patient was seen in the office today for follow-up evaluation and transrectal ultrasound guided prostate biopsy for a history of elevated psa. He is doing well with no new significant complaints. PSA (ng/mL) Date Value 04/25/2024 4.82 04/23/2010 0.95 PSA Screening (ng/mL) Date Value 04/18/2024 5.00 A urinalysis was performed revealing: no evidence of infection or hematuria. No results found for: PH, SPGR, UGLUC, UBILI, UKET, UHB, UPROT, UROBIL, UWBC, SSA UNIVERSAL PROTOCOL / SAFETY CHECKLIST Procedure to be Performed: Transrectal ultrasound-guided biopsy of the prostate Sign In: A Moment of CARE was completed. Personnel directly involved with the procedure wore the appropriate PPE (Personal Protective Equipment). Patient/Surrogate Stated/Verified: PATIENT VERIFIED(optional for EMERGENT procedures): Patient name, Date of , Relevant allergies, and The intended procedure Time Out Communication: Intended patient and procedure match the source documents. Consent documented and matches the intended procedure. Sign Out: SIGN OUT (optional for EMERGENT procedures): All specimen containers correctly labeled. Heriberto Perez MD TRANS RECTAL ULTRASOUND PROSTATE BIOPSY The patient confirmed that he had discontinued all aspirin products, blood thinners and NSAIDS as directed, and that the prescribed prep and prophylactic antibiotics were taken as directed. The patient was again explicitly asked to call us if he has any symptoms such as fever after the biopsy. His also asked to call us and proceed directly to the emergency room if he has a fever over 101.5 The benefits and risks of the transrectal ultrasound guided prostate biopsy procedure were discussed with the patient, especially the potential complications of prostate biopsy including, but not limited to: pain, infection, bleeding, hematochezia, hematuria, worsening of voiding symptoms, urinary retention, sepsis and possible need for additional biopsies. All questions were answered to the patient's satisfaction. Verbal consent for transrectal ultrasound-guided prostate biopsy was obtained from the patient. The written consent will be scanned into to the patient's electronic medical record. Procedure: The patient was placed on the procedure table in the lateral recumbent position. The well-lubricated transrectal ultrasound probe was carefully and atraumatically inserted into the rectum and the prostate was visualized. A prostate volume of approximately 57 grams. The prostate was homogeneous. A periprostatic block was then given in the standard fashion, using 1% lidocaine with a spinal needle under directed transrectal ultrasound guidance. Once adequate anesthesia was achieved, 6 needle biopsy cores were taken from the left and right lobes of the prostate. Specimens were sent to pathology for histologic evaluation. The patient tolerated the procedure well without complications. Prostate Ultrasound With Needle Biopsy Prostate Patient was instructed to stop all aspirin products 10 days prior to the procedure. I explained the options concerning the findings of a prostatic nodule both with and without an elevated PSA, as well as an elevated PSA without a prostate nodule. I specifically explained to him the procedure, the reason for doing this, the possible complications, and the fact that a negative prostate biopsy does not definitely indicate that there is no prostate cancer present, but only that there was no malignancy found in the biopsy specimens. I explained the possibility of impotency and some incontinence, blood in the urine, stool, and/or semen. He may also experience frequency, urgency, and dysuria after the procedure. I explained the remote possibility of blood loss and the possibility of infection of the prostate and rectum post operatively. I explained that his risks included bleeding infection and the possibility of even very severe illness including . I explained that the procedure would be done through the rectum and that there was a small chance of a rectal fistula leading to a colostomy and possible further surgery. The patient expressed an understanding with regard to possible benefits, risks, complications and outcome. Educational materials concerning the proposed surgical procedure were supplied to the patient. The patient was explicitly asked to call us if he has any symptoms such as fever after the biopsy. His also asked to call us and proceed directly to the emergency room if he has a fever over 101. Assessment: elevated psa Plan: Prostate biopsy was tolerated well. He will follow up in 2 we (more content not included)... [facility] 05-25-2024 Procedure note Pre-op diagnosis: Elevated PSA Postop diagnosis: Elevated PSA Procedure: Transrectal ultrasound-guided biopsy the prostate The patient was seen in the office today for follow-up evaluation and transrectal ultrasound guided prostate biopsy for a history of elevated psa. He is doing well with no new significant complaints. PSA (ng/mL) Date Value 04/25/2024 4.82 04/23/2010 0.95 PSA Screening (ng/mL) Date Value 04/18/2024 5.00 A urinalysis was performed revealing: no evidence of infection or hematuria. No results found for: PH, SPGR, UGLUC, UBILI, UKET, UHB, UPROT, UROBIL, UWBC, SSA UNIVERSAL PROTOCOL / SAFETY CHECKLIST Procedure to be Performed: Transrectal ultrasound-guided biopsy of the prostate Sign In: A Moment of CARE was completed. Personnel directly involved with the procedure wore the appropriate PPE (Personal Protective Equipment). Patient/Surrogate Stated/Verified: PATIENT VERIFIED(optional for EMERGENT procedures): Patient name, Date of , Relevant allergies, and The intended procedure Time Out Communication: Intended patient and procedure match the source documents. Consent documented and matches the intended procedure. Sign Out: SIGN OUT (optional for EMERGENT procedures): All specimen containers correctly labeled. Heriberto Perez MD TRANS RECTAL ULTRASOUND PROSTATE BIOPSY The patient confirmed that he had discontinued all aspirin products, blood thinners and NSAIDS as directed, and that the prescribed prep and prophylactic antibiotics were taken as directed. The patient was again explicitly asked to call us if he has any symptoms such as fever after the biopsy. His also asked to call us and proceed directly to the emergency room if he has a fever over 101.5 The benefits and risks of the transrectal ultrasound guided prostate biopsy procedure were discussed with the patient, especially the potential complications of prostate biopsy including, but not limited to: pain, infection, bleeding, hematochezia, hematuria, worsening of voiding symptoms, urinary retention, sepsis and possible need for additional biopsies. All questions were answered to the patient's satisfaction. Verbal consent for transrectal ultrasound-guided prostate biopsy was obtained from the patient. The written consent will be scanned into to the patient's electronic medical record. Procedure: The patient was placed on the procedure table in the lateral recumbent position. The well-lubricated transrectal ultrasound probe was carefully and atraumatically inserted into the rectum and the prostate was visualized. A prostate volume of approximately 57 grams. The prostate was homogeneous. A periprostatic block was then given in the standard fashion, using 1% lidocaine with a spinal needle under directed transrectal ultrasound guidance. Once adequate anesthesia was achieved, 6 needle biopsy cores were taken from the left and right lobes of the prostate. Specimens were sent to pathology for histologic evaluation. The patient tolerated the procedure well without complications. Prostate Ultrasound With Needle Biopsy Prostate Patient was instructed to stop all aspirin products 10 days prior to the procedure. I explained the options concerning the findings of a prostatic nodule both with and without an elevated PSA, as well as an elevated PSA without a prostate nodule. I specifically explained to him the procedure, the reason for doing this, the possible complications, and the fact that a negative prostate biopsy does not definitely indicate that there is no prostate cancer present, but only that there was no malignancy found in the biopsy specimens. I explained the possibility of impotency and some incontinence, blood in the urine, stool, and/or semen. He may also experience frequency, urgency, and dysuria after the procedure. I explained the remote possibility of blood loss and the possibility of infection of the prostate and rectum post operatively. I explained that his risks included bleeding infection and the possibility of even very severe illness including . I explained that the procedure would be done through the rectum and that there was a small chance of a rectal fistula leading to a colostomy and possible further surgery. The patient expressed an understanding with regard to possible benefits, risks, complications and outcome. Educational materials concerning the proposed surgical procedure were supplied to the patient. The patient was explicitly asked to call us if he has any symptoms such as fever after the biopsy. His also asked to call us and proceed directly to the emergency room if he has a fever over 101. Assessment: elevated psa Plan: Prostate biopsy was tolerated well. He will follow up in 2 weeks to discuss results I recommended the patient go home and drink plenty of fluids and rest. He can expect to have blood in his urine stool and semen for several days or even weeks. The patient was given standard post-procedure instructions and advised to stay well hydrated. The patient has been instructed to return to the office in approximately two weeks in order to review the biopsy results. That appointment will be scheduled by the patient, today. Based on these results, further management will be instituted. Heriberto Perez MD Electronically Signed: Heriberto Perez MD May 25, 2024 9:11 AM [facility] 05-25-2024 Procedure note Pre-op diagnosis: Elevated PSA Postop diagnosis: Elevated PSA Procedure: Transrectal ultrasound-guided biopsy the prostate The patient was seen in the office today for follow-up evaluation and transrectal ultrasound guided prostate biopsy for a history of elevated psa. He is doing well with no new significant complaints. PSA (ng/mL) Date Value 04/25/2024 4.82 04/23/2010 0.95 PSA Screening (ng/mL) Date Value 04/18/2024 5.00 A urinalysis was performed revealing: no evidence of infection or hematuria. No results found for: PH, SPGR, UGLUC, UBILI, UKET, UHB, UPROT, UROBIL, UWBC, SSA UNIVERSAL PROTOCOL / SAFETY CHECKLIST Procedure to be Performed: Transrectal ultrasound-guided biopsy of the prostate Sign In: A Moment of CARE was completed. Personnel directly involved with the procedure wore the appropriate PPE (Personal Protective Equipment). Patient/Surrogate Stated/Verified: PATIENT VERIFIED(optional for EMERGENT procedures): Patient name, Date of , Relevant allergies, and The intended procedure Time Out Communication: Intended patient and procedure match the source documents. Consent documented and matches the intended procedure. Sign Out: SIGN OUT (optional for EMERGENT procedures): All specimen containers correctly labeled. Heriberto Perez MD TRANS RECTAL ULTRASOUND PROSTATE BIOPSY The patient confirmed that he had discontinued all aspirin products, blood thinners and NSAIDS as directed, and that the prescribed prep and prophylactic antibiotics were taken as directed. The patient was again explicitly asked to call us if he has any symptoms such as fever after the biopsy. His also asked to call us and proceed directly to the emergency room if he has a fever over 101.5 The benefits and risks of the transrectal ultrasound guided prostate biopsy procedure were discussed with the patient, especially the potential complications of prostate biopsy including, but not limited to: pain, infection, bleeding, hematochezia, hematuria, worsening of voiding symptoms, urinary retention, sepsis and possible need for additional biopsies. All questions were answered to the patient's satisfaction. Verbal consent for transrectal ultrasound-guided prostate biopsy was obtained from the patient. The written consent will be scanned into to the patient's electronic medical record. Procedure: The patient was placed on the procedure table in the lateral recumbent position. The well-lubricated transrectal ultrasound probe was carefully and atraumatically inserted into the rectum and the prostate was visualized. A prostate volume of approximately 57 grams. The prostate was homogeneous. A periprostatic block was then given in the standard fashion, using 1% lidocaine with a spinal needle under directed transrectal ultrasound guidance. Once adequate anesthesia was achieved, 6 needle biopsy cores were taken from the left and right lobes of the prostate. Specimens were sent to pathology for histologic evaluation. The patient tolerated the procedure well without complications. Prostate Ultrasound With Needle Biopsy Prostate Patient was instructed to stop all aspirin products 10 days prior to the procedure. I explained the options concerning the findings of a prostatic nodule both with and without an elevated PSA, as well as an elevated PSA without a prostate nodule. I specifically explained to him the procedure, the reason for doing this, the possible complications, and the fact that a negative prostate biopsy does not definitely indicate that there is no prostate cancer present, but only that there was no malignancy found in the biopsy specimens. I explained the possibility of impotency and some incontinence, blood in the urine, stool, and/or semen. He may also experience frequency, urgency, and dysuria after the procedure. I explained the remote possibility of blood loss and the possibility of infection of the prostate and rectum post operatively. I explained that his risks included bleeding infection and the possibility of even very severe illness including . I explained that the procedure would be done through the rectum and that there was a small chance of a rectal fistula leading to a colostomy and possible further surgery. The patient expressed an understanding with regard to possible benefits, risks, complications and outcome. Educational materials concerning the proposed surgical procedure were supplied to the patient. The patient was explicitly asked to call us if he has any symptoms such as fever after the biopsy. His also asked to call us and proceed directly to the emergency room if he has a fever over 101. Assessment: elevated psa Plan: Prostate biopsy was tolerated well. He will follow up in 2 weeks to discuss results I recommended the patient go home and drink plenty of fluids and rest. He can expect to have blood in his urine stool and semen for several days or even weeks. The patient was given standard post-procedure instructions and advised to stay well hydrated. The patient has been instructed to return to the office in approximately two weeks in order to review the biopsy results. That appointment will be scheduled by the patient, today. Based on these results, further management will be instituted. Heriberto Perez MD Electronically Signed: Heriberto Perez MD May 25, 2024 9:11 AM documented in this encounter [facility] 05-24-2024 Telephone encounter Note Fleet enema pended for upcoming prostate biopsy on 05/25/[address] Perez [facility] 05-24-2024 Miscellaneous Notes Fleet enema pended for upcoming prostate biopsy on 05/25/[address] Perez documented in this encounter [facility] 05-20-2024 Telephone encounter Note Halcion pended for upcoming prostate biopsy on 05/25/24. [facility] 05-20-2024 Miscellaneous Notes Halcion pended for upcoming prostate biopsy on 05/25/24. documented in this encounter [facility] 05-18-2024 Miscellaneous Notes Ok to schedule Patient called in to schedule biopsy. Transferred to PSR to assist patient. Albertina Brown LPN Left pt vm re: schedule prostate bx for elev PSA. Ref by Siomara Coleman. Airam Patient with elevated PSA and abnormal IsoPSA of 8.6% Needs a prostate biopsy, orders placed No current Blood thinner Patient # Called patient. Verified name and date of . Patient informed of results/orders and verbalizes understanding. Patient would like to proceed with biopsy. Morena Hernandez LPN Please notify patient that his IsoPSA came back at 8.6% % and a PSA of 4.48 The IsoPSA being greater than 6.1% indicates there is a risk of high grade prostate cancer in the next 10 years So a prostate biopsy is recommended. Orders have been placed for biopsy if he wished to have biopsy I will arrange procedure with staff Urologist If he wishes to discuss results I am happy to discuss at visit. FLOWER Taylor, MICHAEL HAZEL documented in this encounter [facility] 05-18-2024 Telephone encounter Note Ok to schedule T [facility] Work Phone: 05-18-2024 Telephone encounter Note Patient called in to schedule biopsy. Transferred to PSR to assist patient. Albertina Brown LPN [facility] 05-18-2024 Telephone encounter Note Left pt vm re: schedule prostate bx for elev PSA. Ref by Siomara Coleman. Airam [facility] 05-17-2024 Telephone encounter Note Patient with elevated PSA and abnormal IsoPSA of 8.6% Needs a prostate biopsy, orders placed No current Blood thinner Patient # [facility] 05-13-2024 Telephone encounter Note Called patient. Verified name and date of . Patient informed of results/orders and verbalizes understanding. Patient would like to proceed with biopsy. Morena Hernandez LPN [facility] 05-13-2024 Telephone encounter Note This concern is being address in a separate encounter. T [facility] 05-13-2024 Miscellaneous Notes This concern is being address in a separate encounter. documented in this encounter [facility] 05-13-2024 Telephone encounter Note Please notify patient that his IsoPSA came back at 8.6% % and a PSA of 4.48 The IsoPSA being greater than 6.1% indicates there is a risk of high grade prostate cancer in the next 10 years So a prostate biopsy is recommended. Orders have been placed for biopsy if he wished to have biopsy I will arrange procedure with staff Urologist If he wishes to discuss results I am happy to discuss at visit. FLOWER Taylor, MIMICHAEL T [facility] 05-10-2024 Note HNO ID: [id number] Author: WALI COLEMAN PA-C Service: ? Author Type: Physician Button And Buckle Maker Type: Progress Notes Filed: 05/10/2024 13:21 Note Text: [facility] NEW PATIENT CLINIC NOTE SERVICE DATE: May 10, 2024 NAME: Sonya Sofia CHIEF COMPLAINT: Elevated PSA HISTORY OF PRESENT ILLNESS: Sonya Sofia is a 63 year old male an new patient here for Elevated PSA The patient reports having a result from recent PSA of 4.82, and only previous PSA in 03/2010 That was 0.95. since there is not having enough data points to help guide decisions I recommend He have a IsoPSA to see if prostate biopsy is indicated , if isoPSA is > 6.1% then recommend biopsy If not will continue to get PSA at 6 month intervals Latest Ref Rng 04/23/2010 04/18/2024 04/25/2024 PSA <2.60 ng/mL 0.95 4.82 (H) PSA, Percent Free % 18 PSA Screening <2.60 ng/mL 5.00 (H) LUTS: None Other symptoms: ED with Viagra 50 mg LABS: PSA (ng/mL) Date Value 04/25/2024 4.82 04/23/2010 0.95 PSA Screening (ng/mL) Date Value 04/18/2024 5.00 MEDICATIONS: nystatin (MYCOSTATIN) powder Apply 1 application to affected area three times a day for 14 days. sildenafil (VIAGRA) 50 mg tablet Take one tablet by mouth 60 minutes prior to sexual activity. Not to exceed one tablet per 24 hours. For erectile dysfunction PAST MEDICAL HISTORY: PAST MEDICAL HISTORY Diagnosis Date Elevated prostate specific antigen (PSA) 04/29/2024 Hyperlipidemia LDL goal < 130 04/23/2010 Tinea pedis 06/28/2012 PAST SURGICAL HISTORY: PAST SURGICAL HISTORY Procedure Laterality Date COLONOSCOPY FLX DX W/COLLJ SPEC WHEN PFRMD 10/03/11 repeat 10 years PAST SURGICAL HISTORY OF bilateral foot surgery PAST SURGICAL HISTORY OF Right 09/08/2019 Shoulder tendon repair FAMILY HISTORY: FAMILY HISTORY Problem Relation Age of Onset Heart Mother CABG, VALVE REPLACEMENT Ischemic Heart Disease Mother Hypertension Father CABG Ischemic Heart Disease Father Ischemic Heart Disease Maternal Grandfather Heart Attack Maternal Grandfather Heart Attack Paternal Grandmother SOCIAL HISTORY: Social Connections: Socially Integrated (04/25/2024) Social Connection and Isolation Panel [NHANES] Frequency of Communication with Friends and Family: More than three times a week Frequency of Social Gatherings with Friends and Family: More than three times a week Attends Islam Services: More than 4 times per year Active Member of Clubs or Organizations: Yes Attends Club or Organization Meetings: More than 4 times per year Marital Status: REVIEW OF SYSTEMS: GENERAL: No fever, chills, weight loss, or fatigue. ENMT: Negative CARDIOVASCULAR:NO CHEST PAIN, PALPITATIONS, ANKLE EDEMA RESPIRATORY: No chronic cough, wheezing, dyspnea, hemoptysis. GENITOURINARY: SEE HPI MUSCULOSKELETAL:NO CHRONIC BACK PAIN, ARTHRITIS, CHRONIC NECK PAIN SKIN: NO VARICOSE VEINS, RASH, ABNORMAL ITCHING HEME/LYMPH/IMMUNE:Negative for prolonged bleeding, bruising easily or swollen nodes NEUROLOGICAL: NO HEADACHES, NUMBNESS, SEIZURES, STROKE DIABETES: No All other systems reviewed and are negative PHYSICAL EXAMINATION: Blood pressure 154/84, pulse 74, temperature 36.6 ?C (97.8 ?F), temperature source Temporal, resp. rate 14, height 166 cm (5' 5.35), weight 84.8 kg (187 lb), SpO2 97%. GENERAL: WNL nutrition, no deformities, healthy appearing NEURO: Awake, alert and oriented x 3 and Normal gait PSYCH: No signs of depression, anxiety, or agitation ENMT (Ear, Nose, Mouth, Throat): No masses, adenopathy, icterus. Thyroid nonpalpable RESP: NL effort, no retractions or purse-lip breathing. CV: No extremity swelling, varices, edema, pallor, erythema GASTROINTESTINAL: Soft, nontender, nondistended, no masses. HERNIAS: None SKIN: No rash, lesions No palpable lymphadenopathy MUSCULOSKELETAL: Extremities normal. No deformities, edema, clubbing or skin discoloration. PROBLEM LIST REVIEW: Yes LABS: Results for orders placed or performed in visit on 05/10/24 UA DIP, URINE (POC) Result Value Ref Range GLUCOSE UA (POCT) Negative Negative mg/dL BILIRUBIN UA (POCT) Negative Negative KETONE UA (POCT) Negative Negative mg/dL SPECIFIC GRAVITY UA (POCT) 1.020 1.005 - 1.030 HEMOGLOBIN/BLOOD UA (POCT) Negative Negative PH UA (POCT) 6.0 4.5 - 8.0 PROTEIN UA (POCT) Trace (A) Negative mg/dL UROBILINOGEN UA (POCT) 0.2 Normal E.U./dL NITRITE UA (POCT) Negative Negative LEUKOCYTES UA (POCT) Negative Negative COLOR UA (POCT) Yellow CLARITY UA (POCT) Clear PROCEDURES: PVR: 21 ml IMAGING: ASSESSMENT/PLAN: 1. Elevated PSA - ICD9: 790.93, ICD10: R97.20 (primary diagnosis) 2. Screening for genitourinary condition - ICD9: V81.6, ICD10: Z13.89 > PSA 4.82 > IsoPSA - Pending New Diagnosis of unknown prognosis testing to follow > Follow-up with Noa Kilpatrick (more content not included)... [facility] 05-10-2024 History of Presen t illness Narrative Images from the original note were not included. [facility] NEW PATIENT CLINIC NOTE SERVICE DATE: May 10, 2024 NAME: Sonya Sofia CHIEF COMPLAINT: Elevated PSA HISTORY OF PRESENT ILLNESS: Sonya Sofia is a 63 year old male an new patient here for Elevated PSA The patient reports having a result from recent PSA of 4.82, and only previous PSA in 03/2010 That was 0.95. since there is not having enough data points to help guide decisions I recommend He have a IsoPSA to see if prostate biopsy is indicated , if isoPSA is > 6.1% then recommend biopsy If not will continue to get PSA at 6 month intervals Latest Ref Rng 04/23/2010 04/18/2024 04/25/2024 PSA <2.60 ng/mL 0.95 4.82 (H) PSA, Percent Free % 18 PSA Screening <2.60 ng/mL 5.00 (H) LUTS: None Other symptoms: ED with Viagra 50 mg LABS: PSA (ng/mL) Date Value 04/25/2024 4.82 04/23/2010 0.95 PSA Screening (ng/mL) Date Value 04/18/2024 5.00 MEDICATIONS: nystatin (MYCOSTATIN) powder Apply 1 application to affected area three times a day for 14 days. sildenafil (VIAGRA) 50 mg tablet Take one tablet by mouth 60 minutes prior to sexual activity. Not to exceed one tablet per 24 hours. For erectile dysfunction PAST MEDICAL HISTORY: PAST MEDICAL HISTORY Diagnosis Date Elevated prostate specific antigen (PSA) 04/29/2024 Hyperlipidemia LDL goal < 130 04/23/2010 Tinea pedis 06/28/2012 PAST SURGICAL HISTORY: PAST SURGICAL HISTORY Procedure Laterality Date COLONOSCOPY FLX DX W/COLLJ SPEC WHEN PFRMD 10/03/11 repeat 10 years PAST SURGICAL HISTORY OF bilateral foot surgery PAST SURGICAL HISTORY OF Right 09/08/2019 Shoulder tendon repair FAMILY HISTORY: FAMILY HISTORY Problem Relation Age of Onset Heart Mother CABG, VALVE REPLACEMENT Ischemic Heart Disease Mother Hypertension Father CABG Ischemic Heart Disease Father Ischemic Heart Disease Maternal Grandfather Heart Attack Maternal Grandfather Heart Attack Paternal Grandmother SOCIAL HISTORY: Social Connections: Socially Integrated (04/25/2024) Social Connection and Isolation Panel [NHANES] Frequency of Communication with Friends and Family: More than three times a week Frequency of Social Gatherings with Friends and Family: More than three times a week Attends Islam Services: More than 4 times per year Active Member of Clubs or Organizations: Yes Attends Club or Organization Meetings: More than 4 times per year Marital Status: REVIEW OF SYSTEMS: GENERAL: No fever, chills, weight loss, or fatigue. ENMT: Negative CARDIOVASCULAR:NO CHEST PAIN, PALPITATIONS, ANKLE EDEMA RESPIRATORY: No chronic cough, wheezing, dyspnea, hemoptysis. GENITOURINARY: SEE HPI MUSCULOSKELETAL:NO CHRONIC BACK PAIN, ARTHRITIS, CHRONIC NECK PAIN SKIN: NO VARICOSE VEINS, RASH, ABNORMAL ITCHING HEME/LYMPH/IMMUNE:Negative for prolonged bleeding, bruising easily or swollen nodes NEUROLOGICAL: NO HEADACHES, NUMBNESS, SEIZURES, STROKE DIABETES: No All other systems reviewed and are negative PHYSICAL EXAMINATION: Blood pressure 154/84, pulse 74, temperature 36.6 C (97.8 F), temperature source Temporal, resp. rate 14, height 166 cm (5' 5.35), weight 84.8 kg (187 lb), SpO2 97%. GENERAL: WNL nutrition, no deformities, healthy appearing NEURO: Awake, alert and oriented x 3 and Normal gait PSYCH: No signs of depression, anxiety, or agitation ENMT (Ear, Nose, Mouth, Throat): No masses, adenopathy, icterus. Thyroid nonpalpable RESP: NL effort, no retractions or purse-lip breathing. CV: No extremity swelling, varices, edema, pallor, erythema GASTROINTESTINAL: Soft, nontender, nondistended, no masses. HERNIAS: None SKIN: No rash, lesions No palpable lymphadenopathy MUSCULOSKELETAL: Extremities normal. No deformities, edema, clubbing or skin discoloration. PROBLEM LIST REVIEW: Yes LABS: Results for orders placed or performed in visit on 05/10/24 UA DIP, URINE (POC) Result Value Ref Range GLUCOSE UA (POCT) Negative Negative mg/dL BILIRUBIN UA (POCT) Negative Negative KETONE UA (POCT) Negative Negative mg/dL SPECIFIC GRAVITY UA (POCT) 1.020 1.005 - 1.030 HEMOGLOBIN/BLOOD UA (POCT) Negative Negative PH UA (POCT) 6.0 4.5 - 8.0 PROTEIN UA (POCT) Trace (A) Negative mg/dL UROBILINOGEN UA (POCT) 0.2 Normal E.U./dL NITRITE UA (POCT) Negative Negative LEUKOCYTES UA (POCT) Negative Negative COLOR UA (POCT) Yellow CLARITY UA (POCT) Clear PROCEDURES: PVR: 21 ml IMAGING: ASSESSMENT/PLAN: 1. Elevated PSA - ICD9: 790.93, ICD10: R97.20 (primary diagnosis) 2. Screening for genitourinary condition - ICD9: V81.6, ICD10: Z13.89 > PSA 4.82 > IsoPSA - Pending New Diagnosis of unknown prognosis testing to follow > Follow-up with FLOWER Willams MT, PA-C after IsoPSA Consultation requested by Pinky Wilson, CHIEF DEPUTY COURT CLERK [id number] [facility] [id number] for an opinion regarding Sonya Sofia patient and my final recommendations will be communicated back to the requesting physician by way of shared Medical record or letter via US mail. FLOWER Taylor MT, PA-C Verified name and date of . CC Post Void Residual HPI: Sonya Sofia is a 63 year old male. The patient is here now for an appointment with FLOWER Taylor MT, PA-COV. Procedure: Explained procedure to patient and verbalizes understanding. Performed a PVR. Patient urinated and instructed to empty bladder as much as possible just prior to having PVR done using bladder ultrasound scanner. Results of scan: 21 mL The patient tolerated the procedure well. Plan: Appointment with Wali. documented in this encounter [facility] 05-10-2024 Note HNO ID: [id number] Author: MORENA HERNANDEZ LPN Service: ? Author Type: LICENSED NURSE Type: Progress Notes Filed: 05/10/2024 13:21 Note Text: Verified name and date of . CC Post Void Residual HPI: Sonya Sofia is a 63 year old male. The patient is here now for an appointment with Wali Coleman, FLOWER, [place], PA-COV. Procedure: Explained procedure to patient and verbalizes understanding. Performed a PVR. Patient urinated and instructed to empty bladder as much as possible just prior to having PVR done using bladder ultrasound scanner. Results of scan: 21 mL The patient tolerated the procedure well. Plan: Appointment with Wali. [facility] 04-29-2024 Telephone encounter Note TC to pt. Left a detailed message on a secure line with updates. Alex Law LPN [facility] 04-29-2024 Miscellaneous Notes TC to pt. Left a detailed message on a secure line with updates. Alex Law LPN Urology consult has been placed, he may schedule any time. Thank you. Pinky Wilson APRN.CHIEF DEPUTY COURT CLERK Patient notified of results and provider's instructions. Patient verbalizes understanding. Patient would like a consult with urology. Tabitha Palafox RN TC to pt. LM to call office, ask for triage nurse to get results. Alex Law LPN Can you please call the patient and let him know that I reviewed his free PSA results. PSA was elevated at 4.82, free PSA percentage was 18%. Free PSA percentages less than 11% we get concerned with possible malignancy. We can continue to monitor this through labs or he may choose to have a consult with urology. Please let me know what he prefers. Pinky Wilson APRN.JALIL documented in this encounter [facility] 04-29-2024 Telephone encounter Note Urology consult has been placed, he may schedule any time. Thank you. Pinky Wilson APRN.CHIEF DEPUTY COURT CLERK [facility] 04-29-2024 Telephone encounter Note Patient notified of results and provider's instructions. Patient verbalizes understanding. Patient would like a consult with urology. Tabitha Palafox RN [facility] 04-29-2024 Telephone encounter Note TC to pt. LM to call office, ask for triage nurse to get results. Alex Law LPN [facility] 04-29-2024 Telephone encounter Note Can you please call the patient and let him know that I reviewed his free PSA results. PSA was elevated at 4.82, free PSA percentage was 18%. Free PSA percentages less than 11% we get concerned with possible malignancy. We can continue to monitor this through labs or he may choose to have a consult with urology. Please let me know what he prefers. Pinky Wilson APRN.CHIEF DEPUTY COURT CLERK T [facility] 04-25-2024 Telephone encounter Note Prescription Refill Information The patient has been identified by name and date of : Yes Caregiver verified no other encounters exist for this prescription request: Yes Caregiver confirmed with patient/requestor that no other refills are due, in the near future, with this provider at this time: Yes The last office visit in the department: 04/25/24 Does the patient have a future office visit with this provider/department: Yes Requested Prescriptions Pending Prescriptions Disp Refills nystatin 1 billion unit powd [Pharmacy Med Name: NYSTATIN 1 BILLION UNIT POWD] 1 Each 2 Si APPLICATION TWO TIMES A DAY. Pharmacy comment: Please verify the drug name on the prescription dated 04/25/2024. Should it be 1 billion unit powder (bulk) powder? Please respond within 24 hours. Please verify the drug name on the prescription dated 04/25/2024. Should it be 1 billion unit powder (bulk) powder? Please respond within 24 hours. Alex Law LPN April 25, 2024 1:08 PM [facility] 04-25-2024 Miscellaneous Notes Prescription Refill Information The patient has been identified by name and date of : Yes Caregiver verified no other encounters exist for this prescription request: Yes Caregiver confirmed with patient/requestor that no other refills are due, in the near future, with this provider at this time: Yes The last office visit in the department: 04/25/24 Does the patient have a future office visit with this provider/department: Yes Requested Prescriptions Pending Prescriptions Disp Refills nystatin 1 billion unit powd [Pharmacy Med Name: NYSTATIN 1 BILLION UNIT POWD] 1 Each 2 Si APPLICATION TWO TIMES A DAY. Pharmacy comment: Please verify the drug name on the prescription dated 04/25/2024. Should it be 1 billion unit powder (bulk) powder? Please respond within 24 hours. Please verify the drug name on the prescription dated 04/25/2024. Should it be 1 billion unit powder (bulk) powder? Please respond within 24 hours. Alex Law LPN April 25, 2024 1:08 PM documented in this encounter [facility] 04-25-2024 Instructions Pinky Wilson APRN.JALIL - 04/25/2024 8:34 AM EDT Get additional lab today for PSA Get repeat fasting labs in 6 months. Eating lean protein, veggies, and get some form of exercise. May consider trying Red Rice Yeast Supplement to help LDL cholesterol. Start Antifungal cream and powder to feet. At least 14 days. Flu vaccine given Consult placed for physical therapy to work on right shoulder Follow up in 1 year or sooner pending test results. documented in this encounter [facility] 04-25-2024 History of Presen t illness Narrative Images from the original note were not included. Sonya Sofia is a 63 year old male here for a Medicare wellness visit. Medicare Health Risk Assessment General Health Excellent Exercise: Minutes/Day 30 min Exercise: Days/Week 6 days Alcohol: Daily Use 4 or more times a week Alcohol: Drinks/Day 1 or 2 Alcohol: 6 or more drinks Never Feel off balance Intermittent with position changes. Concerns: Teeth/Dentures None Concerns: Sexual function None Troubled by feelings No Frequency: Eating healthy diet Yes, daily ADLs requiring help No Safety precautions in home/vehicle Yes Smoke, vape, chews tobacco No Difficulty hearing No Difficulty seeing No Current Providers Specialists: I have reviewed specialist-related care of the patient in the medical record. Medical/Family history review Reviewed and updated problem list, medical/surgical/family/social history, medications, and allergies. Opioid use review Opioid Medications (last 90 days) No data to display Anxiety/Depression screening PHQ-9 Score: 1 (Minimal Depression) ADIS-7 Score: 0. Recommendation: no further intervention at this time Cognitive screening Mini Cog Score: 4 Cognitive screening reviewed and No further action needed (score 3-5). Functional Observation Was the patient's Timed Up & Go test unsteady or >= 12 seconds? No Advance Care Planning Surrogate decision maker and/or advance care plan documented Measurements BP 157/93 Pulse 76 Resp 16 Ht 163 cm (5' 4.17) Wt 83.9 kg (184 lb 15.5 oz) SpO2 96% BMI 31.58 kg/m Vision Screening: Follows with optometry/ophthalmology Assessment/Plan Medicare annual wellness visit, initial (Z00.00) - Counseled on healthy diet and regular exercise - Fall avoidance information provided - Personalized prevention plan provided This is a 63 year old male who presents today with: Patient presents with: Medicare Wellness Exam HISTORY OF PRESENT ILLNESS: Sonya Sofia is a 63 year old male. Patient presents with: Medicare Wellness Exam Here in the office for extensive exam. ED: Using Viagra 50 mg as needed. Following with urology. Right shoulder: Had surgery in the past, has noticed some decreased strength. Denies pain. Colonoscopy: Last colonoscopy September 2011, cologuard negative 2021. PSA: Last PSA March 2010, within normal limits. Denies any urinary symptoms at this time. Snoring: Sleep study order sent to [facility]. No CATALINA but snorning, testing normal. Athletes feet: bilateral feet, small toes, itchy. Has tried Lotrim creams and powders. Mild improvement and refers will get worsen. Has been trying to change his socks during the day. Has seen podiatry in the past. PAST MEDICAL HISTORY: PAST MEDICAL HISTORY Diagnosis Date Hyperlipidemia LDL goal < 130 04/23/2010 Tinea pedis 06/28/2012 PAST SURGICAL HISTORY Procedure Laterality Date COLONOSCOPY FLX DX W/COLLJ SPEC WHEN PFRMD 10/03/11 repeat 10 years PAST SURGICAL HISTORY OF bilateral foot surgery PAST SURGICAL HISTORY OF Right 09/08/2019 Shoulder tendon repair ALLERGIES Patient has no known allergies. MEDICATIONS Current Outpatient Medications Medication Sig sildenafil (VIAGRA) 50 mg tablet Take one tablet by mouth 60 minutes prior to sexual activity. Not to exceed one tablet per 24 hours. For erectile dysfunction No current facility-administered medications for this visit. FAMILY HISTORY Problem Relation Age of Onset Heart Mother CABG, VALVE REPLACEMENT Ischemic Heart Disease Mother Hypertension Father CABG Ischemic Heart Disease Father Ischemic Heart Disease Maternal Grandfather Heart Attack Maternal Grandfather Heart Attack Paternal Grandmother Social History Tobacco Use Smoking status: Never Smokeless tobacco: Never Vaping Use Vaping status: Never Used Substance Use Topics Alcohol use: Yes Comment: occasional Drug use: No REVIEW OF SYSTEMS GENERAL: No weight loss, malaise or fevers/chills HEENT: Negative for frequent or significant headaches, No changes in hearing or vision. NECK: Negative for lumps, goiter, pain and significant neck swelling RESPIRATORY: Negative for cough, hemoptysis, wheezing, dyspnea or shortness of breath CARDIOVASCULAR: Negative for chest pain, leg swelling, orthopnea, or palpitations GI: No nausea, vomiting, or diarrhea/constipation. No hematochezia/melena. No heartburn or reflux symptoms. : No history of dysuria, frequency or incontinence MUSCULOSKELETAL: + Decreased strength right shoulder SKIN: + Itchy toes ENDOCRINE: Negative for cold or heat intolerance, polyuria, polydipsia and goiter NEURO: No history of headaches, syncope, paralysis, seizures or tremors MOOD: Negative for depression, anxiety, or suicidal ideation. EXAM: BP 157/93 Pulse 76 Resp 16 Ht 163 cm (5' 4.17) Wt 83.9 kg (184 lb 15.5 oz) SpO2 96% BMI 31.58 kg/m PHYSICAL EXAM: General Appearance: Well appearing, alert, in no acute distress, well-hydrated, well nourished. Skin: Moisture noted in between bilateral fourth/fifth toe, no erythema, thick white skin noted. Head: Normocephalic, no masses, lesions, tenderness or abnormalities. Eyes: Anicteric sclera. Extraocular movements are intact. Lungs: Lungs clear to auscultation. No wheezing, rhonchi, rales. Heart: RRR without murmur, gallop, or rubs. No ectopy. Musculoskeletal: Shoulder full ROM, negative empty cans/Apley's test. Shoulder nontender with palpation. 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 Good capillary refill. . Peripheral Pulses: Normal, Capillary refill <2secs, strong peripheral pulses, Pulses palpable. Neurologic: Gait normal. Reflexes normal and symmetric. Sensation grossly intact.. Latest Ref Rng 04/18/2024 Protein, Total 6.3 - 8.0 g/dL 6.9 Albumin 3.9 - 4.9 g/dL 4.1 Calcium 8.5 - 10.2 mg/dL 9.1 Bilirubin, Total 0.2 - 1.3 mg/dL 0.4 Alkaline Phosphatase 38 - 113 U/L 60 AST 14 - 40 U/L 20 ALT 10 - 54 U/L 17 Glucose 74 - 99 mg/dL 95 BUN 9 - 24 mg/dL 18 Creatinine 0.73 - 1.22 mg/dL 1.11 Sodium 136 - 144 mmol/L 136 Potassium 3.7 - 5.1 mmol/L 4.3 Chloride 98 - 107 mmol/L 102 CO2 22 - 30 mmol/L 23 Anion Gap 8 - 15 mmol/L 11 eGFR >=60 mL/min/1.73m 74 Cholesterol, Total <200 mg/dL 195 Triglyceride <150 mg/dL 84 HDL Cholesterol >39 mg/dL 37 (L) Non HDL Cholesterol <130 mg/dL 158 (H) Fasting Time hrs 12 VLDL Cholesterol <30 mg/dL 17 TC:HDL Ratio <5.10 5.27 (H) LDL Cholesterol <100 mg/dL 141 (H) LDL:HDL Ratio <2.54 3.81 (H) Hemoglobin A1C 4.3 - 5.6 % 5.6 Estimated Average Glucose mg/dL 114 PSA Screening <2.60 ng/mL 5.00 (H) Legend: (L) Low (H) High ASSESSMENT/PLAN: 1. Medicare annual wellness visit, initial - ICD9: V70.0, ICD10: Z00.00 (primary diagnosis) - Counseled on healthy diet and regular exercise - Discussed need for and benefit of weight loss. BMI 31.58 kg/(m^2) - Patient counseled on and acknowledged vaccine benefits/risks/side effects; VIS provided: Influenza - Follow up for annual exam in one year 2. Fungal skin infection - ICD9: 111.9, ICD10: B36.9 - Start antifungal powder and cream. Instructed to follow-up with podiatry if no improvement. - Keep skin clean and dry. - KETOCONAZOLE 2 % TOPICAL CREAM - NYSTATIN (BULK) 1 BILLION UNIT POWDER 3. Weakness of right shoulder - ICD9: 781.99, ICD10: R29.898 - CONSULT TO PHYSICAL THERAPY 4. Elevated PSA - ICD9: 790.93, ICD10: R97.20 - PROSTATE SPECIFIC ANTIGEN, FREE 5. Hyperlipidemia, mixed - ICD9: 272.2, ICD10: E78.2 - Improving control - Counseled on healthy diet and regular exercise - May consider trying red rice yeast supplement to help with LDL cholesterol. - Get repeat fasting labs in 6 months. - COMPREHENSIVE METABOLIC PANEL - LIPID PANEL BASIC 6. ED (erectile dysfunction) of organic origin - ICD9: 607.84, ICD10: N52.9 - Stable, continue take current medication. 7. Screening for depression - ICD9: V79.0, ICD10: Z13.31 - DEPRESSION SCREENING 8. Elevated blood pressure reading without diagnosis of hypertension - ICD9: 796.2, ICD10: R03.0 - Encouraged dietary sodium restriction/DASH diet - Recommended regular aerobic exercise. - Recommend home blood pressure monitoring, to bring results in on next visit - Goal of BP <130/80 9. Encounter for screening examination for other mental health and behavioral disorders - ICD9: V79.8, ICD10: Z13.39 - ANXIETY SCREENING 10. Encounter for immunization - ICD9: V03.89, ICD10: Z23 - VIS provided. - INFLUENZA VACCINE, PRSV FREE, AGE 65+ YR, HIGH DOSE, TRIVALENT (FLUZONE HIGH-DOSE) Follow-up in 1 year or sooner pending test results. Discussed treatment plan and patient voices understanding. Patient's questions answered appropriately. Medications and potential side effects were discussed and patient voices understanding. Pinky Wilson APRN.CNP This note was partially generated using [employer] voice recognition system. Note was reviewed for accuracy. There may be minor misspellings or grammar miscues with [employer] voice recognition. documented in this encounter [facility] 04-25-2024 Note HNO ID: [id number] Author: PINKY WILSON APRN.CNP Service: ? Author Type: Nurse Practitioner Type: Progress Notes Filed: 04/25/2024 09:01 Note Text: Sonya Sofia is a 63 year old male here for a Medicare wellness visit. Medicare Health Risk Assessment General Health Excellent Exercise: Minutes/Day 30 min Exercise: Days/Week 6 days Alcohol: Daily Use 4 or more times a week Alcohol: Drinks/Day 1 or 2 Alcohol: 6 or more drinks Never Feel off balance Intermittent with position changes. Concerns: Teeth/Dentures None Concerns: Sexual function None Troubled by feelings No Frequency: Eating healthy diet Yes, daily ADLs requiring help No Safety precautions in home/vehicle Yes Smoke, vape, chews tobacco No Difficulty hearing No Difficulty seeing No Current Providers Specialists: I have reviewed specialist-related care of the patient in the medical record. Medical/Family history review Reviewed and updated problem list, medical/surgical/family/social history, medications, and allergies. Opioid use review Opioid Medications (last 90 days) No data to display Anxiety/Depression screening PHQ-9 Score: 1 (Minimal Depression) ADIS-7 Score: 0. Recommendation: no further intervention at this time Cognitive screening Mini Cog Score: 4 Cognitive screening reviewed and No further action needed (score 3-5). Functional Observation Was the patient's Timed Up AND Go test unsteady or >= 12 seconds? No Advance Care Planning Surrogate decision maker and/or advance care plan documented Measurements BP 157/93 Pulse 76 Resp 16 Ht 163 cm (5' 4.17) Wt 83.9 kg (184 lb 15.5 oz) SpO2 96% BMI 31.58 kg/m? Vision Screening: Follows with optometry/ophthalmology Assessment/Plan Medicare annual wellness visit, initial (Z00.00) - Counseled on healthy diet and regular exercise - Fall avoidance information provided - Personalized prevention plan provided This is a 63 year old male who presents today with: Patient presents with: Medicare Wellness Exam HISTORY OF PRESENT ILLNESS: Sonya Sofia is a 63 year old male. Patient presents with: Medicare Wellness Exam Here in the office for extensive exam. ED: Using Viagra 50 mg as needed. Following with urology. Right shoulder: Had surgery in the past, has noticed some decreased strength. Denies pain. Colonoscopy: Last colonoscopy September 2011, cologuard negative 2021. PSA: Last PSA March 2010, within normal limits. Denies any urinary symptoms at this time. Snoring: Sleep study order sent to [facility]. No CATALINA but snorning, testing normal. Athletes feet: bilateral feet, small toes, itchy. Has tried Lotrim creams and powders. Mild improvement and refers will get worsen. Has been trying to change his socks during the day. Has seen podiatry in the past. PAST MEDICAL HISTORY: PAST MEDICAL HISTORY Diagnosis Date Hyperlipidemia LDL goal < 130 04/23/2010 Tinea pedis 06/28/2012 PAST SURGICAL HISTORY Procedure Laterality Date COLONOSCOPY FLX DX W/COLLJ SPEC WHEN PFRMD 10/03/11 repeat 10 years PAST SURGICAL HISTORY OF bilateral foot surgery PAST SURGICAL HISTORY OF Right 09/08/2019 Shoulder tendon repair ALLERGIES Patient has no known allergies. MEDICATIONS Current Outpatient Medications Medication Sig sildenafil (VIAGRA) 50 mg tablet Take one tablet by mouth 60 minutes prior to sexual activity. Not to exceed one tablet per 24 hours. For erectile dysfunction No current facility-administered medications for this visit. FAMILY HISTORY Problem Relation Age of Onset Heart Mother CABG, VALVE REPLACEMENT Ischemic Heart Disease Mother Hypertension Father CABG Ischemic Heart Disease Father Ischemic Heart Disease Maternal Grandfather Heart Attack Maternal Grandfather Heart Attack Paternal Grandmother Social History Tobacco Use Smoking status: Never Smokeless tobacco: Never Vaping Use Vaping status: Never Used Substance Use Topics Alcohol use: Yes Comment: occasional Drug use: No REVIEW OF SYSTEMS GENERAL: No weight loss, malaise or fevers/chills HEENT: Negative for frequent or significant headaches, No changes in hearing or vision. NECK: Negative for lumps, goiter, pain and significant neck swelling RESPIRATORY: Negative for cough, hemoptysis, wheezing, dyspnea or shortness of breath CARDIOVASCULAR: Negative for chest pain, leg swelling, orthopnea, or palpitations GI: No nausea, vomiting, or diarrhea/constipation. No hematochezia/melena. No heartburn or reflux symptoms. : No history of dysuria, frequency or incontinence MUSCULOSKELETAL: + Decreased strength right shoulder SKIN: + Itchy toes ENDOCRINE: Negative for cold or heat intolerance, polyuria, polydipsia and goiter NEURO: No history of headaches, syncope, paralysis, seizures or tremors MOOD: Negative for depression, anxiety, or suicidal ideation. EXAM: BP 157/93 Pulse 76 Resp 16 Ht 163 cm ( (more content not included)... [facility] 03-22-2024 Telephone encounter Note OK to refill as ordered Golden Michel MD [facility] 03-22-2024 Miscellaneous Notes OK to refill as ordered Golden Michel MD Prescription Refill Information The patient has been identified by name and date of : Yes Caregiver verified no other encounters exist for this prescription request: Yes Caregiver confirmed with patient/requestor that no other refills are due, in the near future, with this provider at this time: No The last office visit in the department: 07/22/23 Does the patient have a future office visit with this provider/department: Yes, [facility] Requested Prescriptions Pending Prescriptions Disp Refills sildenafil (VIAGRA) 50 mg tablet 12 tablet 0 Sig: Take one tablet by mouth 60 minutes prior to sexual activity. Not to exceed one tablet per 24 hours. For erectile dysfunction Sneha Dodd LPN March 21, 2024 1:01 PM documented in this encounter [facility] 03-21-2024 Telephone encounter Note Prescription Refill Information The patient has been identified by name and date of : Yes Caregiver verified no other encounters exist for this prescription request: Yes Caregiver confirmed with patient/requestor that no other refills are due, in the near future, with this provider at this time: No The last office visit in the department: 07/22/23 Does the patient have a future office visit with this provider/department: Yes, [facility] Requested Prescriptions Pending Prescriptions Disp Refills sildenafil (VIAGRA) 50 mg tablet 12 tablet 0 Sig: Take one tablet by mouth 60 minutes prior to sexual activity. Not to exceed one tablet per 24 hours. For erectile dysfunction Sneha Dodd LPN March 21, 2024 1:01 PM [facility] 01-15-2024 Telephone encounter Note Patient notified of results, verbalizes understanding of instructions. Alex Law LPN [facility] 01-15-2024 Miscellaneous Notes Patient notified of results, verbalizes understanding of instructions. Alex Law LPN Can you please call the patient and let him know that I reviewed his sleep study results. Sleep study showed snoring but no sleep apnea at this time. He may try [id number] remedies/devices that may help with the snoring. Please let me know if he has any questions. Thank you. Pinky Wilson APRN.CHIEF DEPUTY COURT CLERK Pt calls for results of sleep study. Please advise. documented in this encounter [facility] 01-15-2024 Telephone encounter Note Can you please call the patient and let him know that I reviewed his sleep study results. Sleep study showed snoring but no sleep apnea at this time. He may try qyqz-ubw-tkswldr remedies/devices that may help with the snoring. Please let me know if he has any questions. Thank you. Pinky Wilson APRN.CHIEF DEPUTY COURT CLERK [facility] 01-15-2024 Telephone encounter Note Pt calls for results of sleep study. Please advise. [facility] 06-30-2023 History of Presen t illness Narrative Date: June 30, 2023 Name: Sonya Sofia Comments: HST was returned in working order with all sleep questionnaires German Wick Nomad# [id number], Date shipped out: 06/24/23 SENT FEDEX DELIVERY - FEDEX RETURN Tracking mailout: [id number] Tracking return: [id number] May 26, 2023 Standing PSG Orders signed in the last 90 days None Future PSG Orders signed in the last 90 days Ordered Auth. provider HOME SLEEP APNEA TEST (HSAT) [[id number]] 04/24/23 Pinky Wilson APRN.CHIEF DEPUTY COURT CLERK Assoc. diagnoses: Snoring [R06.83] Q: Indications: A: Obstructive sleep apnea Q: STOP-BANG conditions - Select All That Apply: A: GENDER = male A2: AGE > 50 Q: Current use of supplemental oxygen during sleep period?: A: No All Prior Sleep Studies (past 365 days) Some values may be hidden. Unless noted otherwise, only the newest values recorded on each date are displayed. Sleep Studies HOME SLEEP APNEA TEST (HSAT) Future Expected: Expires: 04/23/24 BMI Readings from Last 2 Encounters: 04/24/23 : 31.24 kg/m 04/24/22 : 31.58 kg/m PAST MEDICAL HISTORY Diagnosis Date Hyperlipidemia LDL goal < 130 04/23/2010 Bubba andrews 06/28/2012 The medical record was reviewed to determine if the proposed sleep study conforms to the AASM Practice Parameters for the Indications for Polysomnography and Related Procedures, or if the sleep study is indicated for other reasons. Indications for study: CATALINA suspected without comorbid medical or sleep disorders Sleep study to be performed: Home Sleep Apnea Test (HSAT) Special instructions: None-follow laboratory protocol Lelo Monaco --- Sleep Medicine Staff Note: I have read the above protocol, edited as needed, and agree to the plan. Tom Souza III, PhD 5:07 PM, 05/26/2023 May 21, 2023 An order has been received for Home Sleep Apnea Test (HSAT) from Pinky [facility]apien [facility] Staff. Visit prep complete. Comments :No The sleep study is scheduled for 06/24. Insurance: Payor: [facility] / Plan: [facility] CHO[facility] / Product Type: HMO / Payer/Plan Subscr Sex Relation Sub. Ins. ID Effective Group Num 1. [facility]* SONYA SOFIA* 1960 Male Self [id number] 07/27/17 [id number] [id number] Vladimir Pickens documented in this encounter [facility] 05-20-2023 Miscellaneous Notes Call/message received from patient requesting refill. Please E-Scribe Last OV: 04/24/23 with Pinky Wilson APRN Future OV: 04/25/23 with Pinky Wilson APRN Pharmacy Name: [facility] Phone #: [phone] Requested Prescriptions Pending Prescriptions Disp Refills sildenafil (VIAGRA) 50 mg tablet 12 tablet 0 Sig: Take one tablet by mouth 60 minutes prior to sexual activity. Not to exceed one tablet per 24 hours. For erectile dysfunction Order pended for review. Please advise. Sneha Dodd LPN documented in this encounter [facility] 07-15-2022 History of Presen t illness Narrative Patient presents for COVID vaccine. Denies any problems at this time. Tolerated injection well. Betty Morin LPN documented in this encounter [facility] 05-15-2022 Miscellaneous Notes Called patient. Rescheduled appointment to 05/21 at 8:30 Call to pt to schedule appt. LVM to contact office. Patient called. Verified name and date of . Patient reports having a difficult time getting appointment scheduled with Dr. Taveras. Did state he will call [employer] to find out where issue is with being able to book online. Reports having missed call from Berenice. Morena Hernandez LPN documented in this encounter [facility] 05-05-2022 Miscellaneous Notes Contacted patient and rescheduled appointment with Dr. Taveras. Can you please assist pt in rescheduling with Dr. Taveras. Pt states he's having difficulty getting through to reschedule. Thanks, Therese Cabello Ma documented in this encounter [facility] 04-24-2022 Instructions Pinky Wilson APRN.CHIEF DEPUTY COURT CLERK - 04/24/2022 8:11 AM EDT 1.) Get fasting labs completed, no food 8-10 hours prior. May have black coffee and water. 2.) Schedule appointment with podiatry. 3.) Cologuard will be mailed to your house. 4.) You were given Flu vaccine today. 5.) Continue to monitor blood pressure at home, Watch salt and processed foods in the diet. Get some form of exercise. 6.) Follow up in 1 year or sooner as needed. Health Promotion: - Eat healthy -- go to Xspand.gov to get started - Have a yearly physical - Get at least 30 minutes of physical activity daily - Get at least 7 to 8 hours of sleep each night - Reach and maintain a healthy weight - Get help to quit or don't start smoking - Limit alcohol use to one drink or less - Do not use illegal drugs or misuse prescription drugs - Wear a helmet when riding a bike and wear protective gear for sports - Wear a seatbelt in cars and not text and drive - Wear sunscreen documented in this encounter [facility] 04-24-2022 History of Presen t illness Narrative This is a 61 year old male who presents today with: Patient presents with: Physical HISTORY OF PRESENT ILLNESS: Sonya Sofia is a 61 year old male. Patient presents with: Physical Here in the office for wellness exam. Diet: Eating a well balanced diet. Exercise: [place]. Vision: Had exam, wears glasses. Dental: Had exam, no difficulties. Sleep: 7-8 hours per night. Mood: Denies any increase sadness, anxiety, or SI/HI. Colonoscopy: Last colonoscopy September 2011, due at this time. Willing to have cologuard. PSA: Last PSA March 2010, within normal limits. Denies any urinary symptoms at this time. Vaccines: Would like flu vaccine today. Has been monitoring BP at home, 150-160's/80's. Asymptomatic. Has been watching salt. Bp improved at today's visit. Right Foot tendernss on the lateral side of small toe. Painful with work boots on. PAST MEDICAL HISTORY: PAST MEDICAL HISTORY Diagnosis Date Hyperlipidemia LDL goal < 130 04/23/2010 Tinea pedis 06/28/2012 PAST SURGICAL HISTORY Procedure Laterality Date COLONOSCOP W/ OR W/O BRSH SPEC 10/03/11 repeat 10 years PAST SURGICAL HISTORY OF bilateral foot surgery PAST SURGICAL HISTORY OF Right 09/08/2019 Shoulder tendon repair ALLERGIES Patient has no known allergies. MEDICATIONS Current Outpatient Medications Medication Sig sildenafil (VIAGRA) 50 mg tablet Take one tablet by mouth 60 minutes prior to sexual activity. Not to exceed one tablet per 24 hours. For erectile dysfunction No current facility-administered medications for this visit. FAMILY HISTORY Problem Relation Age of Onset Heart Mother CABG, VALVE REPLACEMENT Ischemic Heart Disease Mother Hypertension Father CABG Ischemic Heart Disease Father Ischemic Heart Disease Maternal Grandfather Heart Attack Maternal Grandfather Heart Attack Paternal Grandmother Social History Tobacco Use Smoking status: Never Smokeless tobacco: Never Vaping Use Vaping Use: Never used Substance Use Topics Alcohol use: Yes Comment: occasional Drug use: No REVIEW OF SYSTEMS GENERAL: No weight loss, malaise or fevers/chills HEENT: Negative for frequent or significant headaches, No changes in hearing or vision. NECK: Negative for lumps, goiter, pain and significant neck swelling RESPIRATORY: Negative for cough, hemoptysis, wheezing, dyspnea or shortness of breath CARDIOVASCULAR: Negative for chest pain, leg swelling, orthopnea, or palpitations GI: No nausea, vomiting, or diarrhea/constipation. No hematochezia/melena. No heartburn or reflux symptoms. : No history of dysuria, frequency or incontinence MUSCULOSKELETAL: + Right Foot Tenderness SKIN: Negative for lesions, rash, and itching ENDOCRINE: Negative for cold or heat intolerance, polyuria, polydipsia and goiter NEURO: No history of headaches, syncope, paralysis, seizures or tremors MOOD: Negative for depression, anxiety, or suicidal ideation. EXAM: BP 142/82 Pulse 67 Resp 16 Ht 163 cm (5' 4.17) Wt 83.9 kg (185 lb) SpO2 98% BMI 31.58 kg/m PHYSICAL EXAM: General Appearance: Well appearing, alert, in no acute distress, well-hydrated, well nourished. Skin: Skin color, texture, turgor normal, no suspicious rashes or lesions. Head: Normocephalic, no masses, lesions, tenderness or abnormalities. Eyes: Anicteric sclera. Pupils are equally round and reactive to light. Extraocular movements are intact. Ears: External ears normal, canals clear. TM's pearly abernathy. Neck: Supple, no adenopathy; thyroid symmetric, normal size, no bruits. Lungs: Lungs clear to auscultation. No wheezing, rhonchi, rales. Heart: RRR without murmur, gallop, or rubs. No ectopy. Abdomen: Normal abdominal exam, Abdomen soft, non-tender. Bowel sounds normal. No masses, organomegaly, Negative CVA tenderness. Extremities: No deformities, edema, skin discoloration, clubbing or cyanosis. Good capillary refill. Musculoskeletal: No joint swelling, deformity. + Tenderness noted on the lateral side of right small toe, small callous noted under the toe. No erythema. Peripheral Pulses: Normal, Capillary refill <2secs, strong peripheral pulses, Pulses palpable. Neurologic: Gait normal. Reflexes normal and symmetric. Sensation grossly intact. Mood: Pleasant, engaged, good eye contact. ASSESSMENT/PLAN: 1. Wellness examination - ICD9: V70.0, ICD10: Z00.00 (primary diagnosis) - Counseled on healthy diet and regular exercise - Discussed need for and benefit of weight loss. BMI 31.58 kg/(m^2) - Colorectal cancer screening recommended - agrees to Cologuard - Risks/benefits of prostate cancer screening discussed. screening PSA ordered - Patient was counseled [id number] by myself (the billing provider) for the following immunizations and vaccine components, including side effects: Influenza. Patient consents for immunization and understands risks and benefits. A VIS sheet on each immunization was given to the patient. - Follow up for annual exam in one year - COMP METABOLIC PANEL 2. Elevated blood pressure reading without diagnosis of hypertension - ICD9: 796.2, ICD10: R03.0 - Encouraged dietary sodium restriction/DASH diet - Recommended regular aerobic exercise. - Recommend home blood pressure monitoring, to bring results in on next visit - Patient would like to call office with his BP readings. - Goal of BP <130/80 3. Foot pain, right - ICD9: 729.5, ICD10: M79.671 - CONSULT TO PODIATRY 4. Hyperlipidemia, mixed - ICD9: 272.2, ICD10: E78.2 - to be determined upon return of lab results - Encouraged following a low fat, low cholesterol diet. - Discussed the benefits of regular aerobic exercise and weight loss. - LIPID PANEL BASIC 5. Screening for colon cancer - ICD9: V76.51, ICD10: Z12.11 - COLOGUARD 6. Flu vaccine need - ICD9: V04.81, ICD10: Z23 - VIS provided. - INFLUENZA VACCINE QUADRIVALENT 6 MO - 64 YRS IM 7. Screening for diabetes mellitus - ICD9: V77.1, ICD10: Z13.1 - HGB A1C Follow-up in 1 year or sooner as needed. Discussed treatment plan and patient voices understanding. Patient's questions answered appropriately. Medications and potential side effects were discussed and patient voices understanding. Pinky Wilson APRN.JALIL This note was partially generated using [employer] voice recognition system. Note was reviewed for accuracy. There may be minor misspellings or grammar miscues with [employer] voice recognition. documented in this encounter [facility] 06-28-2012 History of Past i llness Narrative Problem Noted Date Resolved Date Tinea pedis 06/28/2012 05/19/2016 Closed Colles' fracture 10/16/2005 11/29/19 06 Closed fracture of triquetral (cuneiform) bone o f wrist 10/16/2005 11/28/2005 Unspecified closed fracture of lower end of fore arm 10/10/2005 10/16/2005 Other facial bones, closed fracture 10/10/2005 02/15/2014 documented as of this encounter (statuses as of 04/24/2022) [facility]2012 History of Past illness Narrative* Problem Noted Date Resolved Date Tinea pedis 06/28/2012 05/19/2016 Closed Colles' fracture 10/16/2005 11/29/19 06 Closed fracture of triquetral (cuneiform) bone o f wrist 10/16/2005 11/28/2005 Unspecified closed fracture of lower end of fore arm 10/10/2005 10/16/2005 Other facial bones, closed fracture 10/10/2005 02/15/2014 documented as of this encounter (statuses as of 04/29/2022) [facility] History of Past illness Narrative* Problem Noted Date Resolved Date Tinea pedis 06/28/2012 05/19/2016 Closed Colles' fracture 10/16/2005 11/29/19 06 Closed fracture of triquetral (cuneiform) bone o f wrist 10/16/2005 11/28/2005 Unspecified closed fracture of lower end of fore arm 10/10/2005 10/16/2005 Other facial bones, closed fracture 10/10/2005 02/15/2014 documented as of this encounter (statuses as of 05/05/2022) [facility] History of Past illness Narrative* Problem Noted Date Resolved Date Tinea pedis 06/28/2012 05/19/2016 Closed Colles' fracture 10/16/2005 11/29/19 06 Closed fracture of triquetral (cuneiform) bone o f wrist 10/16/2005 11/28/2005 Unspecified closed fracture of lower end of fore arm 10/10/2005 10/16/2005 Other facial bones, closed fracture 10/10/2005 02/15/2014 documented as of this encounter (statuses as of 05/15/2022) [facility] History of Past illness Narrative* Problem Noted Date Resolved Date Tinea pedis 06/28/2012 05/19/2016 Closed Colles' fracture 10/16/2005 11/29/19 06 Closed fracture of triquetral (cuneiform) bone o f wrist 10/16/2005 11/28/2005 Unspecified closed fracture of lower end of fore arm 10/10/2005 10/16/2005 Other facial bones, closed fracture 10/10/2005 02/15/2014 documented as of this encounter (statuses as of 07/15/2022) [facility] History of Past illness Narrative* Problem Noted Date Diagnosed Date Resolved Date Tinea pedis 06/28/2012 05/19/2016 Closed Colles' fracture 10/16/2005 05/0 11/2005 Closed fracture of triquetra l (cuneiform) bone of wrist 10/16/2005 11/28/2005 Unspecified closed fracture of lower end of forearm 10/10/2005 10/16/2005 Other facial bones, closed fracture 10/10/2005 02/15/2014 documented as of this encounter (statuses as of 03/02/2023) [facility] History of Past illness Narrative* Problem Noted Date Diagnosed Date Resolved Date Tinea pedis 06/28/2012 05/19/2016 Closed Colles' fracture 10/16/2005 05/0 11/2005 Closed fracture of triquetra l (cuneiform) bone of wrist 10/16/2005 11/28/2005 Unspecified closed fracture of lower end of forearm 10/10/2005 10/16/2005 Other facial bones, closed fracture 10/10/2005 02/15/2014 documented as of this encounter (statuses as of 05/20/2023) [facility] History of Past illness Narrative* Problem Noted Date Diagnosed Date Resolved Date Tinea pedis 06/28/2012 05/19/2016 Closed Colles' fracture 10/16/2005 05/0 11/2005 Closed fracture of triquetra l (cuneiform) bone of wrist 10/16/2005 11/28/2005 Unspecified closed fracture of lower end of forearm 10/10/2005 10/16/2005 Other facial bones, closed fracture 10/10/2005 02/15/2014 documented as of this encounter (statuses as of 06/30/2023) [facility] note* Diagnosis Wellness examination- Primary Elevated blood pressure reading without diagnosis of hypertension Foot pain, right Pain in limb Hyperlipidemia, mixed Mixed hyperlipidemia Screening for colon cancer Special screening for malignant neoplasms, colon Flu vaccine need Need for prophylactic vaccination and inoculation against influenza Screening for diabetes mellitus [facility] Diagnosis Pain in right foot- Primary Pain in limb [facility]* Diagnosis Need for vaccination- Primary Need for prophylactic vaccination and inoculation against unspecified single disease [facility]* Diagnosis Hyperlipidemia, mixed- Primary Mixed hyperlipidemia Dysmetabolic syndrome X Dysmetabolic Syndrome X [facility]* Diagnosis ED (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 Work Phone: Evaluation note* Diagnosis ED (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 [facility]* Diagnosis Medicare annual wellness visit, initial- Primary Routine general medical examination at a health care facility Fungal skin infection Dermatophytosis of the body Weakness of right shoulder Elevated PSA Elevated prostate specific antigen (PSA) Hyperlipidemia, mixed Mixed hyperlipidemia ED (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 Screening for depression Elevated blood pressure reading without diagnosis of hypertension Encounter for screening examination for other mental health and behavioral disorders Encounter for immunization Need for other specified prophylactic vaccination against single bacterial disease [facility]* Diagnosis Fungal skin infection Dermatophytosis of the body [facility] [facility]* Diagnosis Elevated PSA- Primary Elevated prostate specific antigen (PSA) documented [facility] Diagnosis Elevated PSA- Primary Elevated prostate specific antigen (PSA) Screening for genitourinary condition Screening for other and unspecified genitourinary condition [facility] Diagnosis Elevated prostate specific antigen (PSA)- Primary [facility] Diagnosis Elevated prostate specific antigen (PSA)- 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 tract symptoms (LUTS) [facility] Diagnosis Elevated prostate specific antigen (PSA)- 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 tract symptoms (LUTS) [facility] Diagnosis 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 (LUTS) Elevated prostate specific antigen (PSA) [facility] Diagnosis Elevated PSA- Primary Elevated prostate specific antigen (PSA) [facility] Diagnosis Fungal skin infection- Primary Dermatophytosis of the body [facility] Diagnosis Pain of right hip- Primary Pain of right hip [facility] Diagnosis Pain of right hip [facility] Diagnosis Callus of foot Corns and callosities Hammer toes of both feet [facility] Diagnosis Pain of right hip [facility] Diagnosis Callus of foot- Primary Corns and callosities Tinea pedis of both feet Hammer toes of both feet Callus of foot Corns and callosities Hammer toes of both feet [facility] Diagnosis ED (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 [facility] Diagnosis ED (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 [facility] Diagnosis Elevated PSA- Primary Elevated prostate specific antigen (PSA) Hyperlipidemia, mixed Mixed hyperlipidemia Medicare annual wellness visit, initial Routine general medical examination at a health care facility [facility] Diagnosis ED (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 [facility] Diagnosis Strain of neck muscle, initial encounter- Primary Muscle spasm of back Other symptoms referable to back documented in this encounter [facility] for referral (narrative)* Diagnostic Procedure Only (Routine) - Pending Review Specialty Diagnoses / Procedures Referred By Prisca mandujano Referred To Contact XR IMAGING Diagnoses Pain in right foot Procedures XR FOOT GENERAL 3V AP/LAT/OBL RIGHT RADEX FOOT COMPLETE MINIMUM 3 VIEWS Shirley Taveras [address] [place] [address] Xr Imaging Referral ID Status Reason Start Date Expiration Date Visits Requested Visits Authorized [id number] Pending Review Auto-Generat ed Referral 04/29/2022 05/29/2023 1 1 T [facility] for referral (narrative)* Outpatient Procedure (Routine) - New Request Specialty Diagnoses / Procedures Referred By Prisca mandujano Referred To Contact [facility] Diagnoses Elevated prostate specific antigen (PSA) Procedures PROSTATE BIOPSY GUKI PROSTATE NEEDLE BIOPSY ANY APPROACH US, TRANSRECTAL URNLS DIP STICK/TABLET RGNT AUTO W/O MICROSCOPY US GUIDANCE NEEDLE PLACEMENT IMG S&I Wali Coleman PA-C [id number] [place] [address] Referral ID Status Reason Start Date Expiration Date Visits Requested Visits Authorized [id number] New Request Auto-Generat ed Referral 05/13/2025 1 1 T [facility] for referral (narrative)* Diagnostic Procedure Only (Urgent) - Closed Specialty Diagnoses / Procedures Referred By Briac t Referred To Contact XR IMAGING Diagnoses Pain of right hip Procedures XR HIP GENERAL 3V PELV/AP/LAT RIGHT RADEX HIP UNILATERAL WITH PELVIS 2-3 VIEWS Marcus Haro APRN.CHIEF DEPUTY COURT CLERK [address] [place] [address] [place] [address] Referral ID Status Reason Start Date Expiration Date V isits Requested Visits Authorized [id number] Closed Auto-Generate d Referral 06/03/2024 07/03/2025 1 1 [facility] for referral (narrative)* Diagnostic Procedure Only (Routine) - Closed Specialty Diagnoses / Procedures Referred By Contac t Referred To Contact XR IMAGING Diagnoses Callus of foot Hammer toes of both feet Procedures XR FOOT GENERAL 3V AP/LAT/OBL BILATERAL RADEX FOOT COMPLETE MINIMUM 3 VIEWS Shirley Taveras [address] [place] [address] [place] [address] Referral ID Status Reason Start Date Expiration Date V isits Requested Visits Authorized [id number] Closed Auto-Generate d Referral 06/06/2024 07/06/2025 1 1 * Diagnostic Procedure Only (Routine) - New Request Specialty Diagnoses / Procedures Referred By Contac t Referred To Contact XR IMAGING Diagnoses Callus of foot Procedures XR FOOT GENERAL 3V AP/LAT/OBL RIGHT RADEX FOOT COMPLETE MINIMUM 3 VIEWS Shirley Taveras [address] [place] [address] [place] [address] Referral ID Status Reason Start Date Expiration Date Visits Requested Visits Authorized [id number] New Request Auto-Generat ed Referral 07/06/2025 1 1 [facility] for visit Narrative* Diagnostic Procedure Only (Urgent) - Closed Specialty Diagnoses / Procedures Referred By Contac t Referred To Contact XR IMAGING Diagnoses Pain of right hip Procedures XR HIP GENERAL 3V PELV/AP/LAT RIGHT RADEX HIP UNILATERAL WITH PELVIS 2-3 VIEWS Marcus Haro, NEELAM [address] [place] [address] [place] [address] Referral ID Status Reason Start Date Expiration Date V isits Requested Visits Authorized [id number] Closed Auto-Generate d Referral 06/03/2024 07/03/2025 1 1 [facility] Diagnostic Procedure Only (Routine) - Closed Specialty Diagnoses / Procedures Referred By Prisca t Referred To Contact XR IMAGING Diagnoses Callus of foot Hammer toes of both feet Procedures XR FOOT GENERAL 3V AP/LAT/OBL BILATERAL RADEX FOOT COMPLETE MINIMUM 3 VIEWS Shirley Taveras [address] [place] [address] [place] [address] Referral ID Status Reason Start Date Expiration Date V isits Requested Visits Authorized [id number] Closed Auto-Generate d Referral 06/06/2024 07/06/2025 1 1 [facility] Reason for Referral Specialty Diagnoses / Procedures Referred By Prisca mandujano Referred To Contact Podiatry Diagnoses Foot pain, right Procedures CONSULT TO PODIATRY OFFICE/OUTPATIENT NEW HIGH MDM 60-74 MINUTES Pinky Wilson APRN.CHIEF DEPUTY COURT CLERK [address] [place] [address] Referral ID Status Reason Start Date Expiration Date Visits Requested Visits Authorized [id number] Pending Review PCP Requested Referral 04/24/2022 04/24/2023 1 1 Specialty Diagnoses / Procedures Referred By Prisca mandujano Referred To Contact [facility] Diagnoses Weakness of right shoulder Procedures CONSULT TO PHYSICAL THERAPY PHYSICAL THERAPY EVALUATION HIGH COMPLEX 45 MINS Pinky Wilson, RINA.CHIEF DEPUTY COURT CLERK [address] [place] [address] [facility] [place] [address] [place] [address] Referral ID Status Reason Start Date Expiration Date Visits Requested Visits Authorized [id number] Pending Review Auto-Generat ed Referral 04/25/2024 04/25/2025 1 1 Specialty Diagnoses / Procedures Referred By Prisca mandujano Referred To Contact Urology Diagnoses Elevated PSA Procedures CONSULT TO UROLOGY OFFICE/OUTPATIENT NEW HIGH MDM 60 MINUTES Pinky Wilson, RINA.CHIEF DEPUTY COURT CLERK [address] [place] [address] Referral ID Status Reason Start Date Expiration Date Visits Requested Visits Authorized [id number] Authorized PCP Requested Referral 04/29/2024 04/29/2025 1 1 Specialty Diagnoses / Procedures Referred By Contac t Referred To Contact Podiatry Diagnoses Fungal skin infection Procedures CONSULT TO PODIATRY OFFICE/OUTPATIENT [facility] 60 MINUTES Pinky Wilson, STRATEGY ANALYST.CHIEF DEPUTY COURT CLERK [address] [place] [address] Referral ID Status Reason Start Date Expiration Date Visits Requested Visits Authorized [id number] Authorized PCP Requested Referral 05/31/2024 05/31/2025 1 1 Specialty Diagnoses / Procedures Referred By Contac t Referred To Contact Orthopedics Diagnoses Pain of right hip Procedures CONSULT TO ORTHOPAEDICS OFFICE/OUTPATIENT [facility] 60 MINUTES Marcus Haro, RINA.CHIEF DEPUTY COURT CLERK [address] [place] [address] Referral ID Status Reason Start Date Expiration Date Visits Requested Visits Authorized [id number] Authorized PCP Requested Referral 06/03/2024 06/03/2025 1 1 Specialty Diagnoses / Procedures Referred By Contac t Referred To Contact XR IMAGING Diagnoses Pain of right hip Procedures XR HIP GENERAL 3V PELV/AP/LAT RIGHT RADEX HIP UNILATERAL WITH PELVIS 2-3 VIEWS Marcus Haro, RINA.CHIEF DEPUTY COURT CLERK [address] [place] [address] [place] [address] Referral ID Status Reason Start Date Expiration Date V isits Requested Visits Authorized [id number] Closed Auto-Generate d Referral 06/03/2024 07/03/2025 1 1 Chief Complaint and Reason for Visit Chief Complaint Obstructive sleep ap dana (adult) (pediatric) Family History No Family History Records Found Relationship Condition Age at Onset Recorded Date/T yumiko mother Hypertension Unknown father Hypertension Unknown Diabetes mellitus Unknown aunt Diabetes mellitus Unknown Advance Directives No Advanced Directives Records Found Advance Directive Response Recorded Date/ Time Living Will Yes March 15 3:47pm Power of Spiritual Counselor Yes March 15 3:47pm Summary Purpose Additional Source Comments Source Comments (unrecognize d section and content) In the event this informatio n is protected by the Federal Confidentiality of Alcohol and Drug Abuse Patient Records regulations: The Federal rules restrict any use of the information to criminally investigate or prosecute any alcohol or drug abuse patient.[facility] the event this information is protected by the Federal Confidentiality of Alcohol and Drug Abuse Patient Records regulations: The Federal rules restrict any use of the information to criminally investigate or prosecute any alcohol or drug abuse patient.[facility] the event this information is protected by the Federal Confidentiality of Alcohol and Drug Abuse Patient Records regulations: The Federal rules restrict any use of the information to criminally investigate or prosecute any alcohol or drug abuse patient.[facility] the event this information is protected by the Federal Confidentiality of Alcohol and Drug Abuse Patient Records regulations: The Federal rules restrict any use of the information to criminally investigate or prosecute any alcohol or drug abuse patient.[facility] the event this information is protected by the Federal Confidentiality of Alcohol and Drug Abuse Patient Records regulations: The Federal rules restrict any use of the information to criminally investigate or prosecute any alcohol or drug abuse patient.[facility] the event this information is protected by the Federal Confidentiality of Alcohol and Drug Abuse Patient Records regulations: The Federal rules restrict any use of the information to criminally investigate or prosecute any alcohol or drug abuse patient.[facility] the event this information is protected by the Federal Confidentiality of Alcohol and Drug Abuse Patient Records regulations: The Federal rules restrict any use of the information to criminally investigate or prosecute any alcohol or drug abuse patient.[facility] the event this information is protected by the Federal Confidentiality of Alcohol and Drug Abuse Patient Records regulations: The Federal rules restrict any use of the information to criminally investigate or prosecute any alcohol or drug abuse patient.[facility] the event this information is protected by the Federal Confidentiality of Alcohol and Drug Abuse Patient Records regulations: The Federal rules restrict any use of the information to criminally investigate or prosecute any alcohol or drug abuse patient.[facility]igh[facility] the event this information is protected by the Federal Confidentiality of Alcohol and Drug Abuse Patient Records regulations: The Federal rules restrict any use of the information to criminally investigate or prosecute any alcohol or drug abuse patient.[facility] the event this information is protected by the Federal Confidentiality of Alcohol and Drug Abuse Patient Records regulations: The Federal rules restrict any use of the information to criminally investigate or prosecute any alcohol or drug abuse patient.[facility] the event this information is protected by the Federal Confidentiality of Alcohol and Drug Abuse Patient Records regulations: The Federal rules restrict any use of the information to criminally investigate or prosecute any alcohol or drug abuse patient.[facility] the event this information is protected by the Federal Confidentiality of Alcohol and Drug Abuse Patient Records regulations: The Federal rules restrict any use of the information to criminally investigate or prosecute any alcohol or drug abuse patient.[facility] the event this information is protected by the Federal Confidentiality of Alcohol and Drug Abuse Patient Records regulations: The Federal rules restrict any use of the information to criminally investigate or prosecute any alcohol or drug abuse patient.[facility] the event this information is protected by the Federal Confidentiality of Alcohol and Drug Abuse Patient Records regulations: The Federal rules restrict any use of the information to criminally investigate or prosecute any alcohol or drug abuse patient.[facility] the event this information is protected by the Federal Confidentiality of Alcohol and Drug Abuse Patient Records regulations: The Federal rules restrict any use of the information to criminally investigate or prosecute any alcohol or drug abuse patient.[facility] the event this information is protected by the Federal Confidentiality of Alcohol and Drug Abuse Patient Records regulations: The Federal rules restrict any use of the information to criminally investigate or prosecute any alcohol or drug abuse patient.[facility] the event this information is protected by the Federal Confidentiality of Alcohol and Drug Abuse Patient Records regulations: The Federal rules restrict any use of the information to criminally investigate or prosecute any alcohol or drug abuse patient.[facility]igh[facility] the event this information is protected by the Federal Confidentiality of Alcohol and Drug Abuse Patient Records regulations: The Federal rules restrict any use of the information to criminally investigate or prosecute any alcohol or drug abuse patient.[facility]igh[facility] the event this information is protected by the Federal Confidentiality of Alcohol and Drug Abuse Patient Records regulations: The Federal rules restrict any use of the information to criminally investigate or prosecute any alcohol or drug abuse patient.[facility]igh[facility] the event this information is protected by the Federal Confidentiality of Alcohol and Drug Abuse Patient Records regulations: The Federal rules restrict any use of the information to criminally investigate or prosecute any alcohol or drug abuse patient.[facility]igh[facility] the event this information is protected by the Federal Confidentiality of Alcohol and Drug Abuse Patient Records regulations: The Federal rules restrict any use of the information to criminally investigate or prosecute any alcohol or drug abuse patient.[facility]igh[facility] the event this information is protected by the Federal Confidentiality of Alcohol and Drug Abuse Patient Records regulations: The Federal rules restrict any use of the information to criminally investigate or prosecute any alcohol or drug abuse patient.[facility]igh[facility] the event this information is protected by the Federal Confidentiality of Alcohol and Drug Abuse Patient Records regulations: The Federal rules restrict any use of the information to criminally investigate or prosecute any alcohol or drug abuse patient.[facility] the event this information is protected by the Federal Confidentiality of Alcohol and Drug Abuse Patient Records regulations: The Federal rules restrict any use of the information to criminally investigate or prosecute any alcohol or drug abuse patient.[facility] the event this information is protected by the Federal Confidentiality of Alcohol and Drug Abuse Patient Records regulations: The Federal rules restrict any use of the information to criminally investigate or prosecute any alcohol or drug abuse patient.[facility] the event this information is protected by the Federal Confidentiality of Alcohol and Drug Abuse Patient Records regulations: The Federal rules restrict any use of the information to criminally investigate or prosecute any alcohol or drug abuse patient.[facility] the event this information is protected by the Federal Confidentiality of Alcohol and Drug Abuse Patient Records regulations: The Federal rules restrict any use of the information to criminally investigate or prosecute any alcohol or drug abuse patient.[facility]igh[facility] the event this information is protected by the Federal Confidentiality of Alcohol and Drug Abuse Patient Records regulations: The Federal rules restrict any use of the information to criminally investigate or prosecute any alcohol or drug abuse patient.[facility]igh[facility] the event this information is protected by the Federal Confidentiality of Alcohol and Drug Abuse Patient Records regulations: The Federal rules restrict any use of the information to criminally investigate or prosecute any alcohol or drug abuse patient.[facility]igh[facility] the event this information is protected by the Federal Confidentiality of Alcohol and Drug Abuse Patient Records regulations: The Federal rules restrict any use of the information to criminally investigate or prosecute any alcohol or drug abuse patient.[facility] the event this information is protected by the Federal Confidentiality of Alcohol and Drug Abuse Patient Records regulations: The Federal rules restrict any use of the information to criminally investigate or prosecute any alcohol or drug abuse patient.[facility] the event this information is protected by the Federal Confidentiality of Alcohol and Drug Abuse Patient Records regulations: The Federal rules restrict any use of the information to criminally investigate or prosecute any alcohol or drug abuse patient.[facility]igh[facility] the event this information is protected by the Federal Confidentiality of Alcohol and Drug Abuse Patient Records regulations: The Federal rules restrict any use of the information to criminally investigate or prosecute any alcohol or drug abuse patient.[facility]igh[facility] the event this information is protected by the Federal Confidentiality of Alcohol and Drug Abuse Patient Records regulations: The Federal rules restrict any use of the information to criminally investigate or prosecute any alcohol or drug abuse patient.[facility]igh[facility] the event this information is protected by the Federal Confidentiality of Alcohol and Drug Abuse Patient Records regulations: The Federal rules restrict any use of the information to criminally investigate or prosecute any alcohol or drug abuse patient.[facility]ighIn the event this information is protected by the Federal Confidentiality of Alcohol and Drug Abuse Patient Records regulations: The Federal rules restrict any use of the information to criminally investigate or prosecute any alcohol or drug abuse patient.[facility] Reason for Visit (unrecogniz ed section and content) Reason Comments Physical Reason Comments Appointment Reason Comments Imm/Inj Reason Onset Date Comments Refill Request 05/20/2023 Reason Comments HSAT Check In (Adult) Reason Onset Date Comments Refill Request 03/19/2024 Reason Comments Medicare Wellness Exam Reason Comments Med Change Request Reason Comments Results Free PSA Reason Comments Consult Elevated PSA Specialty Diagnoses / Procedures Referred By Contmandy t Referred To Contact Urology Diagnoses Elevated PSA Procedures CONSULT TO UROLOGY OFFICE/OUTPATIENT NEW HIGH MDM 60 MINUTES Pinky Wilson, STRATEGY ANALYST.CHIEF DEPUTY COURT CLERK [address] [place] [address] Referral ID Status Reason Start Date Expiration Date V isits Requested Visits Authorized [id number] Closed PCP Requested Referral 04/29/2024 04/29/2025 1 1 Reason Comments Results Reason Comments Consult Reason Comments Right Hip Pain Reason Comments Right Hip Pain X3 days Reason Comments right hip pain Specialty Diagnoses / Procedures Referred By Contac t Referred To Contact Orthopedics Diagnoses Pain of right hip Procedures CONSULT TO ORTHOPAEDICS OFFICE/OUTPATIENT [facility] MDM 60 MINUTES Marcus Haro, RINA.CHIEF DEPUTY COURT CLERK [address] [place] [address] Referral ID Status Reason Start Date Expiration Date V isits Requested Visits Authorized [id number] Closed PCP Requested Referral 06/03/2024 06/03/2025 1 1 Reason Comments Established Patient Follow Up Athlete Foot Pain Specialty Diagnoses / Procedures Referred By Contac t Referred To Contact Podiatry Diagnoses Fungal skin infection Procedures CONSULT TO PODIATRY OFFICE/OUTPATIENT [facility] MDM 60 MINUTES Pinky Wilson, STRATEGY ANALYST.CHIEF DEPUTY COURT CLERK [address] [place] [address] Referral ID Status Reason Start Date Expiration Date V isits Requested Visits Authorized [id number] Closed PCP Requested Referral 05/31/2024 05/31/2025 1 1 Reason Onset Date Comments Refill Request 07/21/2024 Reason Onset Date Comments Results 11/09/2024 Reason Onset Date Comments Refill Request 01/07/2025 Reason Comments Orders Reason Onset Date Comments Refill Request 03/18/2025 Reason Comments Neck Pain Reason Comments Neck Pain Neck pain x4 days Care Teams (unrecognized sec tion and content) Buffing Machine Tender Relationship Specialty Start Date End Date Golden Michel MD [address] [place], [place] [id number] PCP - General Family Medicine 04/18/22 Buffing Machine Tender Relationship Specialty Start Date End Date Golden Michel MD [address] [place], [place] [id number] PCP - General Family Medicine 04/18/22 Buffing Machine Tender Relationship Specialty Start Date End Date Golden Michel MD [address] [place], [place] [id number] PCP - General Family Medicine 04/18/22 Buffing Machine Tender Relationship Specialty Start Date End Date Golden Michel MD [address] [place] [address] PCP - General Family Medicine 04/18/22 Buffing Machine Tender Relationship Specialty Start Date End Date Golden Michel MD [address] [place] [address] PCP - General Family Medicine 04/18/22 Buffing Machine Tender Relationship Specialty Start Date End Date Golden Michel MD [address] [place] [address] PCP - General Family Medicine 04/18/22 Buffing Machine Tender Relationship Specialty Start Date End Date Golden Michel MD [address] [place] [address] PCP - General Family Medicine 04/18/22 Buffing Machine Tender Relationship Specialty Start Date End Date Golden Michel MD [address] [place] [address] PCP - General Family Medicine 04/18/22 Team Status: Active Member Role Status Dates Dr. Rupert Nunn III, MD Family Provider Active Oscar Ray STORAGE ADMINISTRATOR, STORAGE ADMINISTRATOR-C Primary Care Provider Active Team Status: Inactive Member Role Status Dates Oscar Ray STORAGE ADMINISTRATOR, STORAGE ADMINISTRATOR-C Primary Care Provider Active Dr. Ralph Norman MD Attending Provider, Referring Pr ovider Active Buffing Machine Tender Relationship Specialty Start Date End Date Golden Michel MD [address] [place] [address] PCP - General Family Medicine 04/18/22 Buffing Machine Tender Relationship Specialty Start Date End Date Golden Michel MD [address] [place] [address] PCP - General Family Medicine 04/18/22 Buffing Machine Tender Relationship Specialty Start Date End Date Golden Michel MD [address] [facility] [place] [address] PCP - General Family Medicine 04/18/22 Buffing Machine Tender Relationship Specialty Start Date End Date Golden Michel MD [address] [facility] [place] [address] PCP - General Family Medicine 04/18/22 Buffing Machine Tender Relationship Specialty Start Date End Date Golden Michel MD [address] [facility] [place] [address] PCP - General Family Medicine 04/18/22 Buffing Machine Tender Relationship Specialty Start Date End Date Golden Michel MD [address] [facility] [place] [address] PCP - General Family Medicine 04/18/22 Buffing Machine Tender Relationship Specialty Start Date End Date Golden Michel MD [address] [facility] [place] [address] PCP - General Family Medicine 04/18/22 Buffing Machine Tender Relationship Specialty Start Date End Date Golden Michel MD [address] [facility] [place] [address] PCP - General Family Medicine 04/18/22 Buffing Machine Tender Relationship Specialty Start Date End Date Golden Michel MD [address] [facility] [place] [address] PCP - General Family Medicine 04/18/22 Buffing Machine Tender Relationship Specialty Start Date End Date Golden Michel MD [address] [facility] [place] [address] PCP - General Family Medicine 04/18/22 Buffing Machine Tender Relationship Specialty Start Date End Date Golden Michel MD [address] [place] [address] PCP - General Family Medicine 04/18/22 Buffing Machine Tender Relationship Specialty Start Date End Date Golden Michel MD [address] [place] [address] PCP - General Family Medicine 04/18/22 Buffing Machine Tender Relationship Specialty Start Date End Date Golden Michel MD [address] [place] [address] PCP - General Family Medicine 04/18/22 Buffing Machine Tender Relationship Specialty Start Date End Date Golden Michel MD [address] [place] [address] PCP - General Family Medicine 04/18/22 Buffing Machine Tender Relationship Specialty Start Date End Date Golden Michel MD [address] [place] [address] PCP - General Family Medicine 04/18/22 Buffing Machine Tender Relationship Specialty Start Date End Date Golden Michel MD [address] [place] [address] PCP - General Family Medicine 04/18/22 Pinky Wilson APRN.CHIEF DEPUTY COURT CLERK [address] [place] [address] Triple Valve Tester Family Medicine 07/03/24 Idris Dailey APRN.CHIEF DEPUTY COURT CLERK [address] [place] [address] Triple Valve Tester Family Medicine 07/12/24 Buffing Machine Tender Relationship Specialty Start Date End Date Golden Michel MD [address] [facility] [place] [address] PCP - General Family Medicine 04/18/22 Pinky Wilson APRN.CHIEF DEPUTY COURT CLERK [address] [facility] [place] [address] Triple Valve Tester Family Medicine 07/03/24 Idris Dailey APRN.CHIEF DEPUTY COURT CLERK [address] [facility] [place] [address] Triple Valve Tester Family Medicine 07/12/24 Buffing Machine Tender Relationship Specialty Start Date End Date Golden Michel MD [address] [facility] [place] [address] PCP - General Family Medicine 04/18/22 Pinky Wilson APRN.CHIEF DEPUTY COURT CLERK [address] [facility] [place] [address] Triple Valve Tester Family Medicine 07/03/24 Idris Dailey APRN.CHIEF DEPUTY COURT CLERK [address] [facility] [place] [address] Triple Valve Tester Family Medicine 07/12/24 Buffing Machine Tender Relationship Specialty Start Date End Date Golden Michel MD [address] [facility] [place] [address] PCP - General Family Medicine 04/18/22 Pinky Wilson APRN.CHIEF DEPUTY COURT CLERK [address] [facility] [place] [address] Triple Valve Tester Family Medicine 07/03/24 12/07/24 Idris Dailey APRN.CHIEF DEPUTY COURT CLERK [address] [place] [address] Triple Valve Tester Family Medicine 07/12/24 Buffing Machine Tender Relationship Specialty Start Date End Date Golden Michel MD [address] [place] [address] PCP - General Family Medicine 04/18/22 Idris Dailey APRN.CHIEF DEPUTY COURT CLERK [address] [place] [address] Triple Valve Tester Family Medicine 07/12/24 Buffing Machine Tender Relationship Specialty Start Date End Date Golden Michel MD [address] [place] [address] PCP - General Family Medicine 04/18/22 Idris Dailey APRN.CHIEF DEPUTY COURT CLERK [address] [place] [address] Triple Valve Tester Family [facility] 07/12/24 Buffing Machine Tender Relationship Specialty Start Date End Date Golden Michel MD [address] [place] [address] PCP - General Family Medicine 04/18/22 Idris Dailey APRN.CHIEF DEPUTY COURT CLERK [address] [place] [address] Triple Valve Tester Family [facility] 07/12/24 Buffing Machine Tender Relationship Specialty Start Date End Date Golden Michel MD [address] [place] [address] PCP - General Family Medicine 04/18/22 Idris Dailey APRN.CHIEF DEPUTY COURT CLERK [address] [place] [address] Triple Valve Tester Family Medicine 07/12/24 Goals (unrecognized section and content) Goals may be documented in a n alternate section (unrecognized sect ion and content) No Status Records FoundNo Status Records FoundNo Status Records Found INFORMATION SOURCE (unrecogn ized section and content) DATE CREATED AUTHOR 03/02/2024 [facility] DATE CREATED AUTHOR AUTHOR'S ORGANIZ ATION 11/10/2024 [facility] DATE CREATED AUTHOR AUTHOR'S ORGANIZ ATION 04/07/2025 [facility] FOR RECORDS PERTAINING TO PATIENTS WHO ARE OR HAVE BEEN ENROLLED IN A CHEMICAL DEPENDENCY/SUBSTANCEABUSE PROGRAM, SOME INFORMATION MAY BE OMITTED. This clinical summary was aggregated from multiple sources. Caution should be exercised in using it in the provision of clinical care. This summary normalizes information from multiple sources, and as a consequence, information in this document may materially change the coding, format and clinical context of patient data. In addition, data may be omitted in some cases. CLINICAL DECISIONS SHOULD BE BASED ON THE PRIMARY CLINICAL RECORDS. [employer] [facility]. provides no warranty or guarantee of the accuracy or completeness of information in this document.
--- NOTE | 2025-04-09 19:10 | RAD_ITS ---
PROCEDURE: FEMUR MIN 2 VIEWS 04/09/2025 REASON FOR EXAM: PAIN OVER RIGHT THIGH TECHNIQUE: Procedure Code: RADFEM Modality: DX Procedure: FEMUR MIN 2 VIEWS Laterality: Right COMPARISON: None. FINDINGS: BONES: No acute fracture or focal osseous lesion. JOINTS: No dislocation. Moderate joint space narrowing in the hip and knee. Meniscal chondrocalcinosis in the lateral knee compartment. SOFT TISSUES: No acute abnormality seen. RAD/Femur Min 2 Views IMPRESSION: No acute osseous abnormality. Reading Location: [id number]
--- NOTE | 2025-04-09 19:41 | CM.ED ---
Social Work Date of referral: 04/09/25 Reason for Referral: Advanced Care Directives (ACD's) not on file. Referred by: Social Work Identification Patient provided consent to visit. Ornamenter Hand asked patient to bring in a copy of ACD's which patient was agreeable to. Josephine Taylor, FULFILLMENT ASSOCIATE, CULINARY MANAGER
[2025-04-09 20:16] VITALS: BP 155/96; PULSE 71; RESP 15; TEMP 37.1; O2SAT 99
== END 2025-04-09 20:17 | disposition home or self-care (01) ==
PROVIDERS: Emergency Provider Emergency Medicine; PCP Nurse Practitioner Family; Visit Provider Emergency Medicine
DX: S76.311A Strain of muscle, fascia and tendon of the posterior muscle group at thigh level, right thigh, initial encounter (principal); I10 Essential (primary) hypertension; X58.XXXA Exposure to other specified factors, initial encounter
CPT/HCPCS: 73552; 99282